=== PATIENT | male | born 1940 | race Caucasian/White ===

== ENCOUNTER 2018-07-30 03:42 | Emergency (ER) | payer MEDICARE, OTHER ==
[2018-07-30 05:00] LABS: BASO % 0.3 % (0.0-1.0); EOS % 0.7 % (0.0-3.0); HEMATOCRIT 31.1 % (42.0-52.0); HEMOGLOBIN 8.9 g/dl (13.5-17.5); IMMATURE GRANULOCYTE % 0.8 % (0-3.0); LYMPH # 0.5 10^3/uL (1.5-4.5); LYMPH % 8.2 % (24.0-44.0); MEAN CORPUSCULAR HEMOGLOBIN 22.9 pg (27.0-33.0); MEAN CORPUSCULAR HGB CONC 28.6 g/dl (32.0-36.5); MEAN CORPUSCULAR VOLUME 79.9 fl (80.0-96.0); MONO # 0.7 10^3/uL (0.0-0.8); NEUTROPHILS # 4.8 10^3/uL (1.8-7.7); PLATELET COUNT, AUTOMATED 192 10^3/uL (150-450); RED BLOOD COUNT 3.89 10^6/uL (4.30-6.10); RED CELL DISTRIBUTION WIDTH 17.2 % (11.5-14.5); WHITE BLOOD COUNT 6.1 10^3/uL (4.0-10.0)
[2018-07-30 05:04] LABS: INR 2.06; PARTIAL THROMBOPLASTIN TIME 39.7 SECONDS (25.4-37.6); PROTHROMBIN TIME 23.6 SECONDS (12.1-14.4)
[2018-07-30 05:05] LABS: ALBUMIN 3.2 GM/DL (3.2-5.2); ALKALINE PHOSPHATASE 67 U/L (45-117); ALT/SGPT 22 U/L (12-78); ANION GAP 6 MEQ/L (8-16); AST/SGOT 17 U/L (7-37); BILIRUBIN,DIRECT 0.3 MG/DL (0.0-0.2); BILIRUBIN,TOTAL 1.1 MG/DL (0.2-1.0); BLOOD UREA NITROGEN 20 MG/DL (7-18); CALCIUM LEVEL 8.1 MG/DL (8.8-10.2); CARBON DIOXIDE LEVEL 28 MEQ/L (21-32); CHLORIDE LEVEL 105 MEQ/L (98-107); CPK CREATINE PHOSPHOKINASE 63 U/L (39-308); CREATININE FOR GFR 0.79 MG/DL (0.70-1.30); GLOMERULAR FILTRATION RATE > 60.0 (>42); GLUCOSE, FASTING 164 MG/DL (70-100); LIPASE 124 U/L (73-393); POTASSIUM SERUM 4.5 MEQ/L (3.5-5.1); SODIUM LEVEL 139 MEQ/L (136-145); TOTAL PROTEIN 6.1 GM/DL (6.4-8.2); TROPONIN I < 0.02 NG/ML (< 0.10)
[2018-07-30] MEDS: MORPHINE 4 MG/ML 1ML VIAL/SYRINGE (J2270) IV (06:42)
[2018-07-30 07:08] LABS: AMORPHOUS SEDIMENT RFX SMALL (NEGATIVE); KETONE, URINE AUTO RFX NEGATIVE (NEGATIVE); LEUKOCYTE ESTERASE UR AUTO RFX NEGATIVE (NEGATIVE); MUCUS, URINE RFX MODERATE (NEGATIVE); NITRITE, URINE AUTO RFX NEGATIVE (NEGATIVE); RBC, URINE AUTO RFX 2 /HPF (0-3); SPECIFIC GRAVITY UR AUTO RFX 1.023 (1.002-1.035); SQUAM EPITHELIAL CELL UR AURFX 0 /HPF (0-6); WBC, URINE AUTO RFX 2 /HPF (0-3)
[2018-07-30] MEDS: GASTROGRAFIN SOLUTION 30ML PO ×2 (07:13→07:46)
[2018-07-30] MEDS ORDERED: ISOVUE-370 76% 100ML VIAL (Q9967) As Ordered (08:35)
== END 2018-07-30 12:27 | disposition home or self-care (01) ==
LOC: M ED 03:42
DX: R10.30 Lower abdominal pain, unspecified (principal); I48.91 Unspecified atrial fibrillation; Z79.899 Other long term (current) drug therapy; Z79.01 Long term (current) use of anticoagulants
CPT/HCPCS: J2270

== ENCOUNTER 2019-01-26 13:53 | Inpatient (IN) | payer MEDICARE, OTHER ==
[~2019-01-26] VITALS: Ht 177.8 cm; Wt 130.6 kg
[~2019-01-26 13:53] MED LIST: AMLO10TA5 PO; COUM1TAB14 PO; HYDR25TAB PO; LISI10TA4 PO; METF10004 PO; MONT10TA2 PO; OMEP20CA3 PO; OMEP40CA2 PO; PROAAER10 INH; SIMV40TA2 PO
[2019-01-26 14:58] LABS: BASO % 0.2 % (0.0-1.0); EOS % 0.6 % (0.0-3.0); HEMATOCRIT 24.4 % (42.0-52.0); LYMPH # 0.5 10^3/uL (1.5-4.5); LYMPH % 8.3 % (24.0-44.0); MEAN CORPUSCULAR HEMOGLOBIN 19.3 pg (27.0-33.0); MEAN CORPUSCULAR VOLUME 71.3 fl (80.0-96.0); MONO # 0.6 10^3/uL (0.0-0.8); MONO % 9.4 % (0.0-5.0); NEUTROPHILS # 5.1 10^3/uL (1.8-7.7); PLATELET COUNT, AUTOMATED 175 10^3/uL (150-450); RED BLOOD COUNT 3.42 10^6/uL (4.30-6.10); WHITE BLOOD COUNT 6.3 10^3/uL (4.0-10.0)
--- NOTE | 2019-01-26 15:04 | REP ---
Chest two views HISTORY: Cough Comparison: 07/30/2018 Linear densities are present in the left lower lobe consistent with scarring. The right lung is clear. The heart is normal in size. The pulmonary vasculature is normal in appearance. The bony structure is intact. IMPRESSION: Left lower lobe scarring. Electronically Signed by Tomi Armijo MD 01/26/2019 02:55 P
[2019-01-26 15:07] LABS: HEMOGLOBIN 6.6 g/dl (13.5-17.5); INR 2.14; PROTHROMBIN TIME 24.3 SECONDS (12.1-14.4)
--- NOTE | 2019-01-26 15:21 | REP ---
Bilateral lower extremity Duplex Doppler venous ultrasound: Real time compression and duplex Doppler interrogation of the bilateral lower extremity deep venous system is performed. Bilaterally, the common femoral, superficial femoral and popliteal veins are fully compressible with transducer pressure and demonstrate normal spontaneous and phasic flow, without evidence of deep venous thrombosis. Impression: No evidence of deep venous thrombosis of the bilateral lower extremity femoral popliteal venous system. Electronically Signed by Les Escobar MD 01/26/2019 03:13 P
[2019-01-26 15:25] LABS: ALBUMIN 3.1 GM/DL (3.2-5.2); ALT/SGPT 17 U/L (12-78); BILIRUBIN,DIRECT 0.3 MG/DL (0.0-0.2); BLOOD UREA NITROGEN 23 MG/DL (7-18); CALCIUM LEVEL 8.2 MG/DL (8.8-10.2); CARBON DIOXIDE LEVEL 28 MEQ/L (21-32); CHLORIDE LEVEL 103 MEQ/L (98-107); CPK CREATINE PHOSPHOKINASE 42 U/L (39-308); CREATININE FOR GFR 0.71 MG/DL (0.70-1.30); GLOMERULAR FILTRATION RATE > 60.0 (>42); GLUCOSE, FASTING 117 MG/DL (70-100); NT-PRO BNP 638 PG/ML (<450); POTASSIUM SERUM 4.3 MEQ/L (3.5-5.1); SODIUM LEVEL 136 MEQ/L (136-145); TROPONIN I 0.02 NG/ML (< 0.10)
[2019-01-26 16:53] LABS: FERRITIN 13 NG/ML (26-388); IRON (FE) 18 UG/DL (65-175); PERCENT SATURATION 4.5 % (19.7-50.0); TOTAL IRON BINDING CAPACITY 404 UG/DL (250-450)
[2019-01-26] MEDS ORDERED: TIOT18INH INH (16:53)
[2019-01-26] MEDS ORDERED: METF-723 PO (16:53)
[2019-01-26] MEDS ORDERED: GNP1000T11 PO (16:53)
[2019-01-26] MEDS ORDERED: LISI-538 PO (16:53)
[2019-01-26] MEDS ORDERED: MULTCAP PO (16:53)
[2019-01-26] MEDS ORDERED: ASMA220A2 INH (16:53)
[2019-01-26] MEDS ORDERED: ACET-907 PO (16:53)
[2019-01-26] MEDS ORDERED: WARF4TAB51 PO ×2 (16:53)
[2019-01-26] MEDS ORDERED: PRED10TA2 PO (16:53)
[2019-01-26] MEDS ORDERED: ZOCO80TA PO (16:53)
[2019-01-26] MEDS ORDERED: DULE200A INH (16:53)
--- NOTE | 2019-01-26 19:00 | HPE ---
DATE OF ADMISSION: 01/26/2019 PRIMARY CARE PROVIDER: [facility] ATTENDING PHYSICIAN: Dr. Baron CHIEF COMPLAINT: General weakness as well as shortness of breath. HISTORY OF PRESENT ILLNESS: The patient is a 78-year-old male with several chronic medical conditions who came to the emergency room (ER) for evaluation of above complaints. The history is provided by himself; however, the patient is a poor historian. Per the patient, he had trouble breathing for a couple days, so he went to see the primary care physician (PCP[facility] have swelling in his bilateral lower extremities, and it was concerning he may have congestive heart failure (CHF), so he was sent down here, ER, for further evaluation. In the ER his initial workup demonstrated he has very severe anemia. His hemoglobin and hematocrit down to 6.6/24.4. His last hemoglobin and hematocrit were here in the hospital back in 07/30/2018, which was 8.9/31. Also, per medical record in the computer, he was here recently for esophagogastroduodenoscopy (EGD) and colonoscopy done, which only found a few polyps, which were removed. Also, in the ER his stool was negative for guaiac. Packed red blood cell (RBC) transfusion was scheduled in the ER. Meanwhile, medicine service was called for admission. REVIEW OF SYSTEMS: Denies fever. No chills. No headache, blurry vision. Positive shortness of breath but no cough. No chest pain. No abdominal pain. No nausea. No vomiting. No black stool. No diarrhea. No tingling, numbness, or weakness but general weakness in the bilateral lower extremities, and also he was worsening swelling in his bilateral lower extremities. All other systems reviewed were negative. PAST MEDICAL HISTORY: 1. Hypertension. 2. Chronic atrial fibrillation, on Coumadin. 3. Type 2 diabetes. 4. Hypertension. 5. Acid reflux. 6. Morbid obesity. PAST SURGICAL HISTORY: Prostate cancer surgery. ALLERGIES: Allergic to TRAMADOL. MEDICATIONS: Reviewed. SOCIAL HISTORY: Remote tobacco use but quit for many years. No alcohol abuse. No illicit drug abuse. He is a full code. FAMILY HISTORY: Both parents . No family history of heart attack or diabetes. PHYSICAL EXAMINATION: VITAL SIGNS: Temperature 97.5, heart rate 98, respirations 21, blood pressure 126/66, oxygen saturation 96% on room air. GENERAL: He is awake, alert, oriented times three. He is not in acute distress. HEENT: Atraumatic. Pupils equal, round, reactive to light. No jaundice. Extraocular muscles intact. Conjunctivae pale. Ears, nose, throat normal. Mucosa moist. NECK: No jugular venous distention (JVD). No bruits. LUNGS: Clear. No wheezing. No crackles. HEART: S1, S2, irregular but no tachycardia. ABDOMEN: Soft. Bowel sounds positive. Nontender. Lower extremities: He has +2-3 edema in bilateral lower extremities. NEUROLOGIC: Nonfocal. SKIN: No rash. PSYCHOLOGIC: No acute psychosis. DIAGNOSTIC LABORATORIES: CBC with differential: WBC 6.3, hemoglobin and hematocrit 6.6/24.4, platelets 175. Sodium 136, potassium 4.3, chloride 103, bicarbonate 28, BUN 23, creatinine 0.7, glucose 117. Iron profile showed ferritin 13. INR is 2.14. IMPRESSION: 1. Symptomatic iron deficiency anemia. 2. Acute on chronic congestive heart failure (CHF). Ejection fraction (EF) is unknown. 3. Hypertension. 4. Chronic atrial fibrillation. 5. Type 2 diabetes. 6. Acid reflux. 7. Morbid obesity. PLAN: Patient will be admitted to medical/surgical with remote telemetry. He is going to get a blood transfusion due to severe symptomatic anemia. Will supplement with iron for iron deficiency. He had a recent colonoscopy as well as EGD done, which were negative, plus his stool was negative for the guaiac, so probably he does not need a gastrointestinal (GI) workup for iron deficiency anemia in this admission. Regarding his CHF exacerbation, which will be treated with intravenous (IV) Lasix. Meanwhile, will schedule echocardiogram to evaluation EF. Will continue his Coumadin. The other medical conditions are chronic and stable. Will continue home medications. [facility]
[2019-01-26] MEDS: FUROSEMIDE 40 MG/4 ML VIAL (J1940) IV SCH (19:05)
[2019-01-26] MEDS ORDERED: IRON SUCROSE 100MG 5ML VIAL (J1756 PER 1MG) IV ONE (20:00)
[2019-01-26 20:30] VITALS: BP 136/78
[2019-01-26] MEDS: OMEPRAZOLE 20 MG CAP PO SCH (20:47)
[2019-01-26] MEDS: SIMVASTATIN 40 MG TAB PO SCH (20:47)
[2019-01-26] MEDS: ACETAMINOPHEN TAB 650MG DOSE (2X325MG) PO PRN (20:48)
[2019-01-26] MEDS: WARFARIN SOD 5 MG TAB PO SCH (20:50)
[2019-01-26] MEDS ORDERED: DEXTROSE 50% 50 ML SYRINGE IV PRN (23:45)
[2019-01-26] MEDS ORDERED: GLUCAGON FOR INJ 1 MG VIAL (J1610) SC PRN (23:45)
[2019-01-26] MEDS ORDERED: GLUCOSE 4 GM CHEW TABLET PO PRN (23:45)
[2019-01-26] MEDS: HumaLOG INSULIN (NovoLOG) PER UNIT SC SCH (23:47)
[2019-01-27 06:00] VITALS: BP 123/70
[2019-01-27 06:03] LABS: HEMOGLOBIN 7.1 g/dl (13.5-17.5); MEAN CORPUSCULAR HEMOGLOBIN 19.6 pg (27.0-33.0); MEAN CORPUSCULAR HGB CONC 27.3 g/dl (32.0-36.5); MEAN CORPUSCULAR VOLUME 71.6 fl (80.0-96.0); PLATELET COUNT, AUTOMATED 180 10^3/uL (150-450); RED BLOOD COUNT 3.63 10^6/uL (4.30-6.10); WHITE BLOOD COUNT 6.2 10^3/uL (4.0-10.0)
[2019-01-27 06:09] LABS: INR 2.03; PROTHROMBIN TIME 23.3 SECONDS (12.1-14.4)
--- NOTE | 2019-01-27 06:10 | ECGEPIP ---
[facility] - ED Test Date: 2019-01-26 Pat Name: CARLY DUNLAP Department: Room: - Gender: M Tumbling Instructor: : 1940 Requested By: GREG Zamora Order Number: [id number] Reading MD: Sarbjit Montgomery Measurements Intervals [place] Rate: 82 P: ME: 0 QRS: -4 QRSD: 110 T: 33 QT: 367 QTc: 431 Interpretive Statements ATRIAL FIBRILLATION LOW QRS VOLTAGE IN PRECORDIAL LEADS SIMILAR TO 07/30/18 Electronically Signed on 01-27-2019 6:10:29 EDT by Sarbjit Montgomery
[2019-01-27 06:25] LABS: BLOOD UREA NITROGEN 18 MG/DL (7-18); CALCIUM LEVEL 8.4 MG/DL (8.8-10.2); CARBON DIOXIDE LEVEL 28 MEQ/L (21-32); CHLORIDE LEVEL 103 MEQ/L (98-107); CREATININE FOR GFR 0.82 MG/DL (0.70-1.30); GLOMERULAR FILTRATION RATE > 60.0 (>42); GLUCOSE, FASTING 127 MG/DL (70-100); POTASSIUM SERUM 4.1 MEQ/L (3.5-5.1); SODIUM LEVEL 137 MEQ/L (136-145)
[2019-01-27] MEDS: TIOTROPIUM INHALER/CAPSULE (SPIRIVA) INH SCH (08:08)
[2019-01-27] MEDS: FUROSEMIDE 40 MG/4 ML VIAL (J1940) IV SCH ×2 (08:20→17:28)
[2019-01-27] MEDS: HumaLOG INSULIN (NovoLOG) PER UNIT SC SCH ×4 (08:21→20:32)
[2019-01-27] MEDS: LISINOPRIL 10 MG TAB PO SCH (08:23)
[2019-01-27] MEDS: OMEPRAZOLE 20 MG CAP PO SCH ×2 (08:23→20:31)
[2019-01-27] MEDS: amLODIPine 10 MG TAB PO SCH (08:24)
[2019-01-27] MEDS: MONTELUKAST 10 MG TAB PO SCH (08:24)
--- NOTE | 2019-01-27 08:27 | IPNPDOC ---
Date Seen The patient was seen on 01/27/19. Progress Note Subjective 78 Y male, history of HTN, CHF, COPD, and afib on coumadin presents with general weakness found to have severe anemia received 1 unit of PRBC transfusion in ER feels better no events overnight Review of systems no fever no chills' no sob no chest pain no abdominal pain no black stool Physical examination GENERAL: AA Ox3, sitting in the bed and not in acute distress. HEENT: Atraumatic. Pupils equal, round, reactive to light. No jaundice. Extraocular muscles intact. Conjunctivae pale. Ears, nose, throat normal. Mucosa moist. NECK: No jugular venous distention (JVD). No bruits. LUNGS: decreased breath sound and mild wheezing HEART: S1, S2, irregular but no tachycardia. ABDOMEN: Soft. Bowel sounds positive. Nontender. Lower extremities: He has +2-3 edema in bilateral lower extremities. NEUROLOGIC: Nonfocal. SKIN: No rash. PSYCHOLOGIC: No acute psychosis. Assessment and Plan 1. Symptomatic iron deficiency anemia, stool negative for occult blood, recent negative EGD/Colonoscopy Hemoglobin up from 6.6 to 7.1 after 1 unit PRBC, will transfuse another one will supplement iron 2. acute on chronic CHF, fluid overload, will continue IV lasix, echo pending will monitor electrolites 3. Chronic afib, rate control, INR therapeutic, will continue Coumadin 4. HTN, BP stable 5. COPD, not in acute exacerbation, will add duonebs 6. DM T2, will check A1c, will continue insulin A-FIB/CHADSVASC A-FIB History Current/History of A-Fib/PAF?: Yes Current Oral Anticoagulant The: Yes VS, I&O, 24H, [place] Vital Signs/I&O Vital Signs Date Time Temp Pulse Resp B/P (MAP) Pulse Ox O2 Delivery O2 Flow Rate FiO2 01/27/19 06:00 97.2 103 18 123/70 (87) 94 01/26/19 19:16 Room Air I&O- Last 24 Hours up to 6 AM 01/27/19 06:00 Intake Total 350 ml Balance 350 ml Laboratory Data 24H LABS Laboratory Tests 2 01/26/19 14:38: Immature Granulocyte % (Auto) 0.5, White Blood Count 6.3, Red Blood Count 3.42L, Hemoglobin 6.6*L, Hematocrit 24.4L, Mean Corpuscular Volume 71.3L, Mean Corpuscular Hemoglobin 19.3L, Mean Corpuscular Hemoglobin Concent 27.0L, Red Cell Distribution Width 19.3H, Platelet Count 175, Neutrophils (%) (Auto) 81.0H, Lymphocytes (%) (Auto) 8.3L, Monocytes (%) (Auto) 9.4H, Eosinophils (%) (Auto) 0.6, Basophils (%) (Auto) 0.2, Neutrophils # (Auto) 5.1, Lymphocytes # (Auto) 0.5L, Monocytes # (Auto) 0.6, Eosinophils # (Auto) 0.0, Basophils # (Auto) 0.0, Reticulocyte # (auto) 65.7, Nucleated Red Blood Cells % (auto) 0.0, Percent Reticulocyte Count 1.8H, Reticulocyte Hemoglobin Equivalent 17.5L, Prothrombin Time 24.3H, Prothromb Time International Ratio 2.14, Anion Gap 5L, Glomerular F iltration Rate > 60.0, Calcium Level 8.2L, Iron Level 18L, Total Iron Binding Capacity 404, Transferrin % Saturation 4.5L, Ferritin 13L, Aspartate Amino Transf (AST/SGOT) 14, Alanine Aminotransferase (ALT/SGPT) 17, Alkaline Phosphatase 65, Total Bilirubin 1.0, Direct Bilirubin 0.3H, Total Creatine K inase 42, Creatine Kinase MB 1.0, Creatine Kinase MB Relative Index 3.10, Troponin I 0.02, SX-Wza-M-Type Natriuretic Peptide 638H, Total Protein 6.0L, Albumin 3.1L, Albumin/Globulin Ratio 1.07, Thyroid Stimulating Hormone (TSH) 4.920H 01/26/19 20:37: Bedside Glucose (Misc Panel) 177H 01/27/19 05:39: Nucleated Red Blood Cells % (auto) 0.0, Prothrombin Time 23.3H, Prothromb Time International Ratio 2.03, Anion Gap 6L, Glomerular Filtration Rate > 60.0, Calc ium Level 8.4L, Blood Urea Nitrogen 18, Creatinine 0.82, Sodium Level 137, Potassium Level 4.1, Chloride Level 103, Carbon Dioxide Level 28 CBC/BMP Laboratory Tests 01/26/19 14:38 Red Blood Count 3.42 L, Mean Corpuscular Volume 71.3 L, Mean Corpuscular Hemoglobin 19.3 L, Mean Corpuscular Hemoglobin Concent 27.0 L, Red Cell Distribution Width 19.3 H, Neutrophils (%) (Auto) 81.0 H, Lymphocytes (%) (Auto) 8.3 L, Monocytes (%) (Auto) 9.4 H, Eosinophils (%) (Auto) 0.6, Basophils (%) (Auto) 0.2, Neutrophils # (Auto) 5.1, Lymphocytes # (Auto) 0.5 L, Monocytes # (Auto) 0.6, Eosinophils # (Auto) 0.0, Basophils # (Auto) 0.0 01/27/19 05:39 Red Blood Count 3.63 L, Mean Corpuscular Volume 71.6 L, Mean Corpuscular Hemoglobin 19.6 L, Mean Corpuscular Hemoglobin Concent 27.3 L, Red Cell Distribution Width 19.6 H, Calcium Level 8.4 L TANVIR BERNARD MD January 27, 2019 08:27
[2019-01-27] MEDS: IPRATROPIUM 0.5MG/ALBUTEROL 2.5MG INH SOL UD 3ML (DUONEB)(J7620) NEB SCH ×4 (08:46→20:05)
[2019-01-27] MEDS ORDERED: IRON SUCROSE 100MG 5ML VIAL (J1756 PER 1MG) IV ONE (09:00)
[2019-01-27 09:14] LABS: HEMOGLOBIN A1c 7.5 %
[2019-01-27] MEDS: IRON POLYSAC (NIFEREX) 150 MG CAP PO SCH ×2 (10:34→20:32)
[2019-01-27 14:00] VITALS: BP 136/66
[2019-01-27 16:00] VITALS: BP 140/68
[2019-01-27] MEDS: WARFARIN SOD 5 MG TAB PO SCH (17:28)
[2019-01-27 18:00] VITALS: BP 119/65
[2019-01-27] MEDS: SIMVASTATIN 40 MG TAB PO SCH (20:31)
[2019-01-27] MEDS: ACETAMINOPHEN TAB 650MG DOSE (2X325MG) PO PRN (20:34)
[2019-01-27 22:00] VITALS: BP 125/67
[2019-01-28] MEDS: ACETAMINOPHEN TAB 650MG DOSE (2X325MG) PO PRN (01:56)
[2019-01-28 06:00] VITALS: BP 119/65
[2019-01-28 06:35] LABS: HEMOGLOBIN 7.6 g/dl (13.5-17.5); MEAN CORPUSCULAR HEMOGLOBIN 20.8 pg (27.0-33.0); MEAN CORPUSCULAR HGB CONC 28.1 g/dl (32.0-36.5); MEAN CORPUSCULAR VOLUME 73.8 fl (80.0-96.0); PLATELET COUNT, AUTOMATED 170 10^3/uL (150-450); RED BLOOD COUNT 3.66 10^6/uL (4.30-6.10); WHITE BLOOD COUNT 5.9 10^3/uL (4.0-10.0)
[2019-01-28 06:43] LABS: INR 2.18; PROTHROMBIN TIME 24.7 SECONDS (12.1-14.4)
[2019-01-28 06:55] LABS: BLOOD UREA NITROGEN 15 MG/DL (7-18); CALCIUM LEVEL 8.5 MG/DL (8.8-10.2); CARBON DIOXIDE LEVEL 30 MEQ/L (21-32); CHLORIDE LEVEL 101 MEQ/L (98-107); CREATININE FOR GFR 0.83 MG/DL (0.70-1.30); GLOMERULAR FILTRATION RATE > 60.0 (>42); GLUCOSE, FASTING 128 MG/DL (70-100); MAGNESIUM LEVEL 1.6 MG/DL (1.8-2.4); POTASSIUM SERUM 4.1 MEQ/L (3.5-5.1); SODIUM LEVEL 137 MEQ/L (136-145)
[2019-01-28] MEDS: IPRATROPIUM 0.5MG/ALBUTEROL 2.5MG INH SOL UD 3ML (DUONEB)(J7620) NEB SCH ×4 (07:52→19:36)
[2019-01-28] MEDS: TIOTROPIUM INHALER/CAPSULE (SPIRIVA) INH SCH (07:52)
[2019-01-28] MEDS: IRON POLYSAC (NIFEREX) 150 MG CAP PO SCH ×2 (08:19→22:18)
[2019-01-28] MEDS: OMEPRAZOLE 20 MG CAP PO SCH ×2 (08:21→22:19)
[2019-01-28] MEDS: amLODIPine 10 MG TAB PO SCH (08:21)
[2019-01-28] MEDS: LISINOPRIL 10 MG TAB PO SCH (08:22)
[2019-01-28] MEDS: FUROSEMIDE 40 MG/4 ML VIAL (J1940) IV SCH (08:38)
[2019-01-28] MEDS: MONTELUKAST 10 MG TAB PO SCH (08:38)
[2019-01-28] MEDS: HumaLOG INSULIN (NovoLOG) PER UNIT SC SCH ×4 (08:39→21:00)
--- NOTE | 2019-01-28 09:52 | ECHO ---
DATE OF PROCEDURE: 01/27/2019 DATE OF : 1940 AGE: 77 GENDER: Male HEIGHT: 70 inches WEIGHT: 211 pounds BODY SURFACE AREA: 2.14 m2 INPATIENT: [address] [place] [address], [facility] REFERRING PHYSICIAN: Dr. Quinton Baron INDICATION: Dyspnea, MEASUREMENTS: 2-D Measurements: RV: 5.5 cm LV: 5.0 cm Septum: 1.1 cm Posterior wall: 1.1 cm Aortic root: 4.3 cm LA: 4.6 cm LVEF: 75% Doppler Measurements: AV: 1.48 m/s LVOT: 1.2 m/s LVOT diameter: 2.3 cm MV: E: 106 Early mitral deceleration time: 204 ms PV: 0.8 m/s Pulmonary artery acceleration time: 106 ms RVSP: 63 mmHg IVC: 2.9 cm COMMENTS: Underlying atrial fibrillation with controlled ventricular response. Somewhat technically challenging in light of the patient's body habitus but diagnostically useful information was still obtained. M-mode and two-dimensional echocardiography was performed with pulsed, continuous wave, color flow and tissue Doppler studies. Normal left ventricular size, wall thickness and hyperkinetic wall motion. At least mildly dilated left atrium but unable to define LV diastolic function with atrial fibrillation. Prominently dilated right heart chambers with severe pulmonary hypertension. Prominently dilated inferior vena cava with absent respiratory collapse in keeping with elevated central venous pressure/right heart failure. Subtle aortic valvular sclerosis without functional abnormality. Mildly dilated aortic root but proximal ascending aorta was upper limits of normal in caliber. Normal appearing and functioning mitral valvular apparatus. Normal appearing tricuspid valve with severe tricuspid insufficiency. No apparent intracardiac mass or pericardial effusion. MTDD
[2019-01-28] MEDS: AMPICILLIN SOD/SULBACTAM SOD 3 GM in D5W MINI-BAG PLUS 100 ML IV SCH ×3 (11:12→22:19)
[2019-01-28 14:00] VITALS: BP 118/72
--- NOTE | 2019-01-28 14:04 | IPNPDOC ---
Date Seen The patient was seen on 01/28/19. Progress Note Subjective 78 Y male, history of HTN, CHF, COPD, and afib on coumadin presents with general weakness found to have severe anemia received 2 unit of PRBC transfusion feels better no events overnight Review of systems left 3rd toe pain no fever no chills' no sob no chest pain no abdominal pain no black stool Physical examination GENERAL: AA Ox3, not in acute distress. HEENT: Atraumatic. Pupils equal, round, reactive to light. No jaundice. Extraocular muscles intact. Conjunctivae pale. Ears, nose, throat normal. Mucosa moist. NECK: No jugular venous distention (JVD). No bruits. LUNGS: decreased breath sound and mild wheezing HEART: S1, S2, irregular but no tachycardia. ABDOMEN: Soft. Bowel sounds positive. Nontender. Lower extremities: He has +2-3 edema in bilateral lower extremities. there are some erythema in the back of left foot and abscess in left 3rd toe NEUROLOGIC: Nonfocal. SKIN: No rash. PSYCHOLOGIC: No acute psychosis. Assessment and Plan 1. Symptomatic iron deficiency anemia, stool negative for occult blood, recent negative EGD/Colonoscopy Hemoglobin up from 6.6 to 7.6 after 2 unit PRBC will continue iron supplement and monitor HH 2. Acute on chronic diastolic CHF, fluid overload, echo showed normal EF still fluid overload, will increase IV lasix to 40 mg Q8H 3. Hypomagnesium, will supplement 4. Chronic afib, rate control, INR therapeutic, will continue Coumadin 5. Left 3rd toe infection, I aspirated abscess at bedside and wound culture pending will start IV Unasyn 6. HTN, BP stable 7. COPD, not in acute exacerbation, will add duonebs 8. DM T2, will check A1c, will continue insulin A-FIB/CHADSVASC A-FIB History Current/History of A-Fib/PAF?: Yes Current PO Anticoag Therapy: Yes VS, I&O, 24H, Fishbone Vital Signs/I&O Vital Signs Date Time Temp Pulse Resp B/P (MAP) Pulse Ox O2 Delivery O2 Flow Rate FiO2 01/28/19 08:22 117/66 01/28/19 08:21 76 01/28/19 06:00 97.9 20 98 01/26/19 19:16 Room Air I&O- Last 24 Hours up to 6 AM 01/28/19 06:00 Intake Total 2430 ml Output Total 2930 ml Balance -500 ml Laboratory Data 24H LABS Laboratory Tests 2 01/27/19 16:44: Bedside Glucose (Misc Panel) 134H 01/27/19 20:27: Bedside Glucose (Misc Panel) 165H 01/28/19 05:48: Bedside Glucose (Misc Panel) 144H 01/28/19 06:06: Nucleated Red Blood Cells % (auto) 0.0, Prothrombin Time 24.7H, Prothromb Time International Ratio 2.18, Anion Gap 6L, Glomerular Filtration Rate > 60.0, Blood Urea Nitrogen 15, Creatinine 0.83, Sodium Level 137, Potassium Level 4.1, Chloride Level 101, Carbon Dioxide Level 30, Calcium Level 8.5L, Magnesium Level 1.6L 01/28/19 11:25: Bedside Glucose (Misc Panel) 127H CBC/BMP Laboratory Tests 01/28/19 06:06 Red Blood Count 3.66 L, Mean Corpuscular Volume 73.8 L, Mean Corpuscular Hemoglobin 20.8 L, Mean Corpuscular Hemoglobin Concent 28.1 L, Red Cell Distribution Width 20.5 H, Calcium Level 8.5 L Microbiology Microbiology 01/28/19 Gram Stain - Final, Resulted 01/28/19 Wound Culture, Resulted Pending TANVIR BERNARD MD January 28, 2019 14:04
[2019-01-28] MEDS: WARFARIN SOD 5 MG TAB PO SCH (17:29)
[2019-01-28] MEDS: FUROSEMIDE 100 MG/10 ML VIAL (J1940) IV SCH (17:29)
[2019-01-28 22:00] VITALS: BP 103/51
[2019-01-28] MEDS: SIMVASTATIN 40 MG TAB PO SCH (22:19)
[2019-01-29] MEDS: FUROSEMIDE 100 MG/10 ML VIAL (J1940) IV SCH ×3 (01:52→17:27)
[2019-01-29] MEDS: AMPICILLIN SOD/SULBACTAM SOD 3 GM in D5W MINI-BAG PLUS 100 ML IV SCH ×2 (04:40→09:39)
[2019-01-29 06:00] VITALS: BP 133/72
[2019-01-29 07:13] LABS: HEMATOCRIT 29.5 % (42.0-52.0); HEMOGLOBIN 8.3 g/dl (13.5-17.5); MEAN CORPUSCULAR HEMOGLOBIN 20.8 pg (27.0-33.0); MEAN CORPUSCULAR HGB CONC 28.1 g/dl (32.0-36.5); MEAN CORPUSCULAR VOLUME 73.9 fl (80.0-96.0); PLATELET COUNT, AUTOMATED 179 10^3/uL (150-450); RED BLOOD COUNT 3.99 10^6/uL (4.30-6.10); WHITE BLOOD COUNT 6.8 10^3/uL (4.0-10.0)
[2019-01-29] MEDS: HumaLOG INSULIN (NovoLOG) PER UNIT SC SCH ×4 (07:30→20:50)
[2019-01-29 07:45] LABS: BLOOD UREA NITROGEN 12 MG/DL (7-18); CARBON DIOXIDE LEVEL 34 MEQ/L (21-32); CHLORIDE LEVEL 98 MEQ/L (98-107); CREATININE FOR GFR 0.88 MG/DL (0.70-1.30); GLOMERULAR FILTRATION RATE > 60.0 (>42); GLUCOSE, FASTING 132 MG/DL (70-100); POTASSIUM SERUM 4.3 MEQ/L (3.5-5.1); SODIUM LEVEL 136 MEQ/L (136-145)
[2019-01-29] MEDS: TIOTROPIUM INHALER/CAPSULE (SPIRIVA) INH SCH (07:50)
[2019-01-29] MEDS: IPRATROPIUM 0.5MG/ALBUTEROL 2.5MG INH SOL UD 3ML (DUONEB)(J7620) NEB SCH ×4 (07:50→19:39)
[2019-01-29] MEDS: LISINOPRIL 10 MG TAB PO SCH (09:41)
[2019-01-29] MEDS: amLODIPine 10 MG TAB PO SCH (09:41)
[2019-01-29] MEDS: IRON POLYSAC (NIFEREX) 150 MG CAP PO SCH ×2 (09:41→20:50)
[2019-01-29] MEDS: OMEPRAZOLE 20 MG CAP PO SCH ×2 (09:41→20:50)
[2019-01-29] MEDS: MONTELUKAST 10 MG TAB PO SCH (09:42)
--- NOTE | 2019-01-29 11:49 | PHACANCOPD ---
PHARMACY VANCOMYCIN DOSING Pt Demographics Demographics Patient Age:78 , Weight:130.600 , Gender: male Adjusted Body Weight Date: 01/29/19, Adjusted Body Weight: Kg Events Past 24 Hours Events Past 24 Hours: YES: Pending Diagnostics Vancomycin Vancomycin indication: LEFT 3RD TOE INFECTION Vancomycin Target Ranges: 10-20 mcg/ml Vancomycin Load Y/N: Yes Load Dose Date Time Vancomycin Load Dose: 2g Date: 01/29/19 Time: 1200 Vancomycin Dose Date: 01/29/19. Current Vancomycin Dose: [1500mg IV Q12H] Intermittent Dosing?: No Labs Labs Item Value Date Time White Blood Count 6.8 10^3/uL 01/29/19 0637 White Blood Count 5.9 10^3/uL 01/28/19 0606 White Blood Count 6.2 10^3/uL 01/27/19 0539 Blood Urea Nitrogen 12 MG/DL 01/29/19 0637 Blood Urea Nitrogen 15 MG/DL 01/28/19 0606 Blood Urea Nitrogen 18 MG/DL 01/27/19 0539 Creatinine 0.88 MG/DL 01/29/19 0637 Creatinine 0.83 MG/DL 01/28/19 0606 Creatinine 0.82 MG/DL 01/27/19 0539 Micro Microbiology 01/28/19 Gram Stain - Final, Resulted 01/28/19 Wound Culture - Preliminary, Resulted Staphylococcus Aureus Creatinine Clearance Date:01/29/19. Est Creatinine Clearance: [~74ml/min]. Pending Labs Vancomycin trough level scheduled 01/31/19 @1100 - prior to the 5th dose Assessment and Plan Maintaining Current Dose?: Yes Reason for dose change: No Dose Change Pharmacist Note Pharmacist Note Date: 01/29/19. Pharmacist note: Day #1 empiric vancomycin therapy initiated with a 2g loading dose, followed by a maintenance regimen of 1500mg IV Q12H for the treatment of a left 3rd toe infection with preliminary wound cultures growing heavy staph aureus - aiming for a goal trough of 10-20mcg/ml. WBC is currently WNL and the patient is afebrile. No PMH of MRSA or vanco use at [facility]. A vancomycin trough level has been scheduled to be drawn 01/31/19 @1100 - prior to the 5th dose. It is noted that the patient is on scheduled lasix and lisinopril, so we will continue to monitor the pts renal function and make changes if needed. SULMA [facility]ING [facility] January 29, 2019 11:49
[2019-01-29] MEDS: VANCOMYCIN HCL 1,000 MG, VIAL MATE ADAPTER 1 EACH in D5W 250 ML IV SCH (12:50)
[2019-01-29] MEDS ORDERED: VANCOMYCIN HCL 1,000 MG, VIAL MATE ADAPTER 1 EACH in D5W 250 ML IV ONE (13:00)
[2019-01-29 14:00] VITALS: BP 120/71
--- NOTE | 2019-01-29 14:27 | IPNPDOC ---
Date Seen The patient was seen on 01/29/19. Progress Note Subjective 78 Y male, history of HTN, CHF, COPD, and afib on coumadin presents with general weakness found to have severe anemia received 2 unit of PRBC transfusion no events overnight Review of systems left 3rd toe pain no fever no chills' no sob no chest pain no abdominal pain no black stool Physical examination GENERAL: AA Ox3, not in acute distress. HEENT: Atraumatic. Pupils equal, round, reactive to light. No jaundice. Extraocular muscles intact. Conjunctivae pale. Ears, nose, throat normal. Mucosa moist. NECK: No jugular venous distention (JVD). No bruits. LUNGS: decreased breath sound and mild wheezing HEART: S1, S2, irregular but no tachycardia. ABDOMEN: Soft. Bowel sounds positive. Nontender. Lower extremities: He has +2-3 edema in bilateral lower extremities. there are some erythema in the back of left foot and abscess in left 3rd toe NEUROLOGIC: Nonfocal. SKIN: No rash. PSYCHOLOGIC: No acute psychosis. Assessment and Plan 1. Symptomatic iron deficiency anemia, stool negative for occult blood, recent negative EGD/Colonoscopy Hemoglobin up from 6.6 to 7.6 after 2 unit PRBC, HH stable 2. Acute on chronic diastolic CHF, fluid overload, echo showed normal EF still fluid overload, will continue IV lasix to 40 mg Q8H 3. Hypomagnesium, resolved 4. Chronic afib, rate control, INR therapeutic, will continue Coumadin 5. Left 3rd toe infection, s/p aspiration, wound culture + Staph aneus, will change to IV vancomycin 6. HTN, BP stable 7. COPD, not in acute exacerbation, will continue duonebs 8. DM T2, will A1c 7.8%, will continue insulin VS, I&O, 24H, [place] Vital Signs/I&O Vital Signs Date Time Temp Pulse Resp B/P (MAP) Pulse Ox O2 Delivery O2 Flow Rate FiO2 01/29/19 09:41 116/68 01/29/19 09:41 80 01/29/19 06:00 97.9 18 94 01/26/19 19:16 Room Air I&O- Last 24 Hours up to 6 AM 01/29/19 06:00 Intake Total 2195 ml Output Total 1200 ml Balance 995 ml Laboratory Data 24H LABS Laboratory Tests 2 01/28/19 16:54: Bedside Glucose (Misc Panel) 149H 01/28/19 21:28: Bedside Glucose (Misc Panel) 163H 01/29/19 06:37: Nucleated Red Blood Cells % (auto) 0.0, Anion Gap 4L, Glomerular Filtration Rate > 60.0, Blood Urea Nitrogen 12, Creatinine 0.88, Sodium Level 136, Potassium Level 4.3, Chloride Level 98, Carbon Dioxide Level 34H, Calcium Level 9.0 01/29/19 11:49: Bedside Glucose (Misc Panel) 138H CBC/BMP Laboratory Tests 01/29/19 06:37 Red Blood Count 3.99 L, Mean Corpuscular Volume 73.9 L, Mean Corpuscular Hemoglobin 20.8 L, Mean Corpuscular Hemoglobin Concent 28.1 L, Red Cell Distribution Width 21.4 H, Calcium Level 9.0 Microbiology Microbiology 01/29/19 Blood Culture, Received Pending 01/28/19 Gram Stain - Final, Resulted 01/28/19 Wound Culture - Preliminary, Resulted Staphylococcus Aureus TANVIR BERNARD MD January 29, 2019 14:27
[2019-01-29] MEDS: WARFARIN SOD 5 MG TAB PO SCH (17:27)
[2019-01-29] MEDS ORDERED: TUBERCULIN PPD 5 UNITS/0.1 ML ID ONE (20:00)
[2019-01-29] MEDS: SIMVASTATIN 40 MG TAB PO SCH (20:50)
[2019-01-29 22:00] VITALS: BP 125/72
[2019-01-30] MEDS: VANCOMYCIN HCL 500 MG in D5W MINI-BAG PLUS 100 ML IV SCH ×2 (00:06→14:55)
[2019-01-30] MEDS: FUROSEMIDE 100 MG/10 ML VIAL (J1940) IV SCH ×3 (00:06→17:00)
[2019-01-30] MEDS: VANCOMYCIN HCL 1,000 MG, VIAL MATE ADAPTER 1 EACH in D5W 250 ML IV SCH ×2 (01:40→12:00)
[2019-01-30] MEDS: HumaLOG INSULIN (NovoLOG) PER UNIT SC SCH ×4 (07:30→21:00)
[2019-01-30] MEDS: TIOTROPIUM INHALER/CAPSULE (SPIRIVA) INH SCH (07:33)
[2019-01-30] MEDS: IPRATROPIUM 0.5MG/ALBUTEROL 2.5MG INH SOL UD 3ML (DUONEB)(J7620) NEB SCH ×4 (07:34→19:39)
[2019-01-30] MEDS: IRON POLYSAC (NIFEREX) 150 MG CAP PO SCH ×2 (09:48→21:47)
[2019-01-30] MEDS: MONTELUKAST 10 MG TAB PO SCH (09:48)
[2019-01-30] MEDS: amLODIPine 10 MG TAB PO SCH (09:48)
[2019-01-30] MEDS: OMEPRAZOLE 20 MG CAP PO SCH ×2 (09:49→21:47)
[2019-01-30] MEDS: LISINOPRIL 10 MG TAB PO SCH (09:49)
--- NOTE | 2019-01-30 11:32 | IPNPDOC ---
Date Seen The patient was seen on 01/30/19. Progress Note Subjective 78 Y male, history of HTN, CHF, COPD, and afib on coumadin presents with general weakness found to have severe anemia received 2 unit of PRBC transfusion has toe infection, + MRSA no events overnight Review of systems no fever no chills' no sob no chest pain no abdominal pain no black stool Physical examination GENERAL: AA Ox3, not in acute distress. HEENT: Atraumatic. Pupils equal, round, reactive to light. No jaundice. Extraocular muscles intact. Conjunctivae pale. Ears, nose, throat normal. Mucosa moist. NECK: No jugular venous distention (JVD). No bruits. LUNGS: decreased breath sound and mild wheezing HEART: S1, S2, irregular but no tachycardia. ABDOMEN: Soft. Bowel sounds positive. Nontender. Lower extremities: He has +2 edema in bilateral lower extremities. left 3rd toe wound stable and no drainage NEUROLOGIC: Nonfocal. SKIN: No rash. PSYCHOLOGIC: No acute psychosis. Assessment and Plan 1. Symptomatic iron deficiency anemia, stool negative for occult blood, recent negative EGD/Colonoscopy S/P 2 unit PRBC, HH stable ; on oral Iron 2. Acute on chronic diastolic CHF, fluid overload, echo showed normal EF still fluid overload, will continue IV lasix to 40 mg Q8H 3. Hypomagnesium, resolved 4. Chronic afib, rate control, INR therapeutic, will continue Coumadin 5. Left 3rd toe infection, s/p aspiration, wound culture + MRSA, will continue IV vancomycin 6. HTN, BP stable 7. COPD, not in acute exacerbation, will continue duonebs 8. DM T2, will A1c 7.8%, will continue insulin 9. dispo: plans to discharge to [facility] on 02/02 VS, I&O, 24H, [facility] Vital Signs/I&O Vital Signs Date Time Temp Pulse Resp B/P (MAP) Pulse Ox O2 Delivery O2 Flow Rate FiO2 01/30/19 09:48 60 125/72 01/29/19 22:00 98.3 18 95 01/26/19 19:16 Room Air I&O- Last 24 Hours up to 6 AM0 01/30/19 05:59 Intake Total 3680 ml Output Total 1100 ml Balance 2580 ml Laboratory Data 24H LABS Laboratory Tests 2 01/29/19 11:49: Bedside Glucose (Misc Panel) 138H 01/29/19 16:53: Bedside Glucose (Misc Panel) 151H 01/29/19 20:01: Bedside Glucose (Misc Panel) 210H 01/30/19 05:17: Bedside Glucose (Misc Panel) 97 Microbiology Microbiology 01/29/19 Blood Culture, Received Pending 01/28/19 Gram Stain - Final, Complete 01/28/19 Wound Culture - Final, Complete Staph.aureus Methicillin Resis TANVIR BERNARD MD January 30, 2019 11:32
[2019-01-30 14:00] VITALS: BP 122/68
[2019-01-30] MEDS: WARFARIN SOD 5 MG TAB PO SCH (18:39)
[2019-01-30] MEDS: ACETAMINOPHEN TAB 650MG DOSE (2X325MG) PO PRN (21:47)
[2019-01-30] MEDS: SIMVASTATIN 40 MG TAB PO SCH (21:47)
[2019-01-30 22:00] VITALS: BP 131/67
[2019-01-31] MEDS: FUROSEMIDE 100 MG/10 ML VIAL (J1940) IV SCH ×3 (00:17→18:11)
[2019-01-31] MEDS: VANCOMYCIN HCL 1,000 MG, VIAL MATE ADAPTER 1 EACH in D5W 250 ML IV SCH ×2 (00:17→12:30)
[2019-01-31] MEDS: VANCOMYCIN HCL 500 MG in D5W MINI-BAG PLUS 100 ML IV SCH ×2 (02:08→15:05)
[2019-01-31] MEDS: ACETAMINOPHEN TAB 650MG DOSE (2X325MG) PO PRN ×3 (04:06→22:24)
[2019-01-31 06:00] VITALS: BP 107/55
[2019-01-31 06:24] LABS: HEMATOCRIT 28.6 % (42.0-52.0); HEMOGLOBIN 8.1 g/dl (13.5-17.5); MEAN CORPUSCULAR HGB CONC 28.3 g/dl (32.0-36.5); MEAN CORPUSCULAR VOLUME 74.3 fl (80.0-96.0); PLATELET COUNT, AUTOMATED 169 10^3/uL (150-450); RED BLOOD COUNT 3.85 10^6/uL (4.30-6.10); WHITE BLOOD COUNT 7.9 10^3/uL (4.0-10.0)
[2019-01-31 06:40] LABS: BLOOD UREA NITROGEN 15 MG/DL (7-18); CARBON DIOXIDE LEVEL 32 MEQ/L (21-32); CHLORIDE LEVEL 92 MEQ/L (98-107); GLOMERULAR FILTRATION RATE > 60.0 (>42); GLUCOSE, FASTING 129 MG/DL (70-100); MAGNESIUM LEVEL 1.7 MG/DL (1.8-2.4); POTASSIUM SERUM 4.1 MEQ/L (3.5-5.1); SODIUM LEVEL 132 MEQ/L (136-145)
[2019-01-31] MEDS: TIOTROPIUM INHALER/CAPSULE (SPIRIVA) INH SCH (07:38)
[2019-01-31] MEDS: IPRATROPIUM 0.5MG/ALBUTEROL 2.5MG INH SOL UD 3ML (DUONEB)(J7620) NEB SCH ×4 (07:38→20:00)
[2019-01-31] MEDS: MONTELUKAST 10 MG TAB PO SCH (09:07)
[2019-01-31] MEDS: OMEPRAZOLE 20 MG CAP PO SCH ×2 (09:07→22:24)
[2019-01-31] MEDS: IRON POLYSAC (NIFEREX) 150 MG CAP PO SCH ×2 (09:08→22:24)
[2019-01-31] MEDS: HumaLOG INSULIN (NovoLOG) PER UNIT SC SCH ×4 (09:08→21:00)
[2019-01-31] MEDS: amLODIPine 10 MG TAB PO SCH (09:09)
[2019-01-31] MEDS: LISINOPRIL 10 MG TAB PO SCH (09:10)
--- NOTE | 2019-01-31 11:45 | PHACANCOPD ---
PHARMACY VANCOMYCIN DOSING Pt Demographics Demographics Patient Age:78 , Weight:130.600 , Gender: male Adjusted Body Weight Date: 01/29/19, Adjusted Body Weight: Kg Vancomycin Vancomycin indication: LEFT 3RD TOE INFECTION Vancomycin Target Ranges: 10-20 mcg/ml Vancomycin Load Y/N: Yes Load Dose Date Time Vancomycin Load Dose: 2g Date: 01/29/19 Time: 1200 Vancomycin Dose Date: 01/29/19. Current Vancomycin Dose: [1500mg IV Q12H] Intermittent Dosing?: No Labs Micro Microbiology 01/29/19 Blood Culture - Preliminary, Resulted No growth after 24 hours . All specim... 01/28/19 Gram Stain - Final, Complete 01/28/19 Wound Culture - Final, Complete Staph.aureus Methicillin Resis Creatinine Clearance Date:01/29/19. Est Creatinine Clearance: [~74ml/min]. Pending Labs Vancomycin trough level scheduled 01/31/19 @1100 - prior to the 5th dose Assessment and Plan Maintaining Current Dose?: Yes Reason for dose change: No Dose Change Pharmacist Note Pharmacist Note 01/31/19: Day #3 IV vancomycin therapy for the treatment of an MRSA left 3rd toe infection (BLUE=1). Vancomycin trough level today resulted therapeutic at 18.2mcg/ml. Scr remains stable at 1.0 today from 0.88 at start of therapy. BUN is also stable at 15 today from 12 at start of therapy. Output has increased from 0.1ml/kg/hr at start of therapy to 1.03ml/kg/hr as of yesterday. We will continue to monitor the patient's renal function and draw a follow-up trough level accordingly. Date: 01/29/19. Pharmacist note: Day #1 empiric vancomycin therapy initiated with a 2g loading dose, followed by a maintenance regimen of 1500mg IV Q12H for the treatment of a left 3rd toe infection with preliminary wound cultures growing heavy staph aureus - aiming for a goal trough of 10-20mcg/ml. WBC is currently WNL and the patient is afebrile. No PMH of MRSA or vanco use at [facility]. A vancomycin trough level has been scheduled to be drawn 01/31/19 @1100 - prior to the 5th dose. It is noted that the patient is on scheduled lasix and lisinopril, so we will continue to monitor the pts renal function and make changes if needed. SULMA [facility] January 31, 2019 11:45
--- NOTE | 2019-01-31 11:53 | IPNPDOC ---
Date Seen The patient was seen on 01/31/19. Progress Note Subjective 78 Y male, history of HTN, CHF, COPD, and afib on coumadin presents with general weakness found to have severe anemia received 2 unit of PRBC transfusion has toe infection, + MRSA feels better and still c/o some pain in left foot Review of systems no fever no chills' no sob no chest pain no abdominal pain no black stool Physical examination GENERAL: AA Ox3, obese, not in acute distress. HEENT: Atraumatic. Pupils equal, round, reactive to light. No jaundice. Extraocular muscles intact. Conjunctivae pale. Ears, nose, throat normal. Mucosa moist. NECK: No jugular venous distention (JVD). No bruits. LUNGS: decreased breath sound and mild wheezing HEART: S1, S2, irregular but no tachycardia. ABDOMEN: Soft. Bowel sounds positive. Nontender. Lower extremities: He has +2 edema in bilateral lower extremities. left 3rd toe wound stable and no drainage NEUROLOGIC: Nonfocal. SKIN: No rash. PSYCHOLOGIC: No acute psychosis. Assessment and Plan 1. Symptomatic iron deficiency anemia, stool negative for occult blood, recent negative EGD/Colonoscopy S/P 2 unit PRBC, HH stable ; on oral Iron 2. Acute on chronic diastolic CHF, fluid overload, echo showed normal EF still fluid overload, will continue IV lasix to 40 mg Q8H 3. Hypomagnesium, resolved 4. Chronic afib, rate control, INR therapeutic, will continue Coumadin 5. Left 3rd toe infection, s/p aspiration, wound culture + MRSA but no positive blood cultures will continue IV vancomycin; may switch to oral clindamycin on discharge 6. HTN, BP stable 7. COPD, not in acute exacerbation, will continue duonebs 8. DM T2, will A1c 7.8%, will continue insulin 9. dispo: plans to discharge to [facility] on 02/02 VS, I&O, 24H, [place] Vital Signs/I&O Vital Signs Date Time Temp Pulse Resp B/P (MAP) Pulse Ox O2 Delivery O2 Flow Rate FiO2 01/31/19 09:09 95 131/80 01/31/19 06:00 99.1 8 93 01/26/19 19:16 Room Air I&O- Last 24 Hours up to 6 AM 01/31/19 06:00 Intake Total 3300 ml Output Total 2825 ml Balance 475 ml Laboratory Data 24H LABS Laboratory Tests 2 01/30/19 12:21: Bedside Glucose (Misc Panel) 202H 01/30/19 16:47: Bedside Glucose (Misc Panel) 196H 01/30/19 19:59: Bedside Glucose (Misc Panel) 198H 01/31/19 05:32: Bedside Glucose (Misc Panel) 147H 01/31/19 05:37: Nucleated Red Blood Cells % (auto) 0.0, Anion Gap 8, Glomerular Filtration Rate > 60.0, Blood Urea Nitrogen 15, Creatinine 1.00, Sodium Level 132L, Potassium Level 4.1, Chloride Level 92L, Carbon Dioxide Level 32, Calcium Level 8.0L, Magnesium Level 1.7L 01/31/19 10:45: Vancomycin Level Trough 18.2 01/31/19 11:27: Bedside Glucose (Misc Panel) 175H CBC/BMP Laboratory Tests 01/31/19 05:37 Red Blood Count 3.85 L, Mean Corpuscular Volume 74.3 L, Mean Corpuscular Hemoglobin 21.0 L, Mean Corpuscular Hemoglobin Concent 28.3 L, Red Cell Distribution Width 22.6 H, Calcium Level 8.0 L Microbiology Microbiology 01/29/19 Blood Culture - Preliminary, Resulted No growth after 24 hours . All specim... 01/28/19 Gram Stain - Final, Complete 01/28/19 Wound Culture - Final, Complete Staph.aureus Methicillin Resis TANVIR BERNARD MD January 31, 2019 11:53
[2019-01-31 14:00] VITALS: BP 109/59
[2019-01-31] MEDS: WARFARIN SOD 5 MG TAB PO SCH (18:11)
[2019-01-31] MEDS ORDERED: PPD DOCUMENTATION ENTRY MISC XX SCH (20:00)
[2019-01-31 22:00] VITALS: BP 115/59
[2019-01-31] MEDS: SIMVASTATIN 40 MG TAB PO SCH (22:23)
[2019-02-01] MEDS: VANCOMYCIN HCL 1,000 MG, VIAL MATE ADAPTER 1 EACH in D5W 250 ML IV SCH (00:10)
[2019-02-01] MEDS: FUROSEMIDE 100 MG/10 ML VIAL (J1940) IV SCH ×2 (00:10→07:51)
[2019-02-01] MEDS: VANCOMYCIN HCL 500 MG in D5W MINI-BAG PLUS 100 ML IV SCH (02:12)
[2019-02-01 06:00] VITALS: BP 123/69
[2019-02-01 06:52] LABS: INR 1.92; PROTHROMBIN TIME 22.3 SECONDS (12.1-14.4)
[2019-02-01] MEDS: IPRATROPIUM 0.5MG/ALBUTEROL 2.5MG INH SOL UD 3ML (DUONEB)(J7620) NEB SCH ×4 (07:39→20:25)
[2019-02-01] MEDS: TIOTROPIUM INHALER/CAPSULE (SPIRIVA) INH SCH (07:39)
[2019-02-01] MEDS: IRON POLYSAC (NIFEREX) 150 MG CAP PO SCH ×2 (07:54→20:54)
[2019-02-01] MEDS: OMEPRAZOLE 20 MG CAP PO SCH ×2 (07:54→20:54)
[2019-02-01] MEDS: MONTELUKAST 10 MG TAB PO SCH (07:54)
[2019-02-01] MEDS: LISINOPRIL 10 MG TAB PO SCH (07:54)
[2019-02-01] MEDS: amLODIPine 10 MG TAB PO SCH (07:55)
[2019-02-01] MEDS: HumaLOG INSULIN (NovoLOG) PER UNIT SC SCH ×4 (07:55→20:34)
--- NOTE | 2019-02-01 11:11 | IPNPDOC ---
Date Seen The patient was seen on 02/01/19. Progress Note Subjective 78 Y male, history of HTN, CHF, COPD, and afib on coumadin presents with general weakness found to have severe anemia received 2 unit of PRBC transfusion has toe infection, + MRSA no events overnight Review of systems no fever no chills no sob no chest pain no abdominal pain no black stool Physical examination GENERAL: AA Ox3, obese, not in acute distress. HEENT: Atraumatic. Pupils equal, round, reactive to light. No jaundice. Extraocular muscles intact. Conjunctivae pale. Ears, nose, throat normal. Mucosa moist. NECK: No jugular venous distention (JVD). No bruits. LUNGS: decreased breath sound and mild wheezing HEART: S1, S2, irregular but no tachycardia. ABDOMEN: Soft. Bowel sounds positive. Nontender. Lower extremities: He has +2 edema in bilateral lower extremities. left 3rd toe wound stable and no drainage NEUROLOGIC: Nonfocal. SKIN: No rash. PSYCHOLOGIC: No acute psychosis. Assessment and Plan 1. Symptomatic iron deficiency anemia, stool negative for occult blood, recent negative EGD/Colonoscopy S/P 2 unit PRBC, HH stable ; on oral Iron 2. Acute on chronic diastolic CHF, fluid overload, echo showed normal EF will change to oral Torsemide @ 40 mg BID 3. Hypomagnesium, resolved 4. Chronic afib, rate control, INR therapeutic, will continue Coumadin 5. Left 3rd toe infection, s/p aspiration, wound culture + MRSA but no positive blood cultures will change from IV vancomycin to oral doxycycline 6. HTN, BP stable 7. COPD, not in acute exacerbation, will continue duonebs 8. DM T2, will A1c 7.8%, will continue insulin 9. dispo: plans to discharge to [facility] on 02/02 VS, I&O, 24H, Counts Include [facility] B[facility] At [facility] Vital Signs/I&O Vital Signs Date Time Temp Pulse Resp B/P (MAP) Pulse Ox O2 Delivery O2 Flow Rate FiO2 02/01/19 07:55 93 117/57 02/01/19 06:00 99.2 20 94 01/26/19 19:16 Room Air I&O- Last 24 Hours up to 6 AM 02/01/19 06:00 Intake Total 3350 ml Output Total 2575 ml Balance 775 ml Laboratory Data 24H LABS Laboratory Tests 2 01/31/19 11:27: Bedside Glucose (Misc Panel) 175H 01/31/19 16:23: Bedside Glucose (Misc Panel) 190H 01/31/19 20:09: Bedside Glucose (Misc Panel) 176H 02/01/19 05:46: Bedside Glucose (Misc Panel) 161H 02/01/19 05:55: Prothrombin Time 22.3H, Prothromb Time International Ratio 1.92 Microbiology Microbiology 01/29/19 Blood Culture - Preliminary, Resulted No Growth after 48 hours. All Specime... 01/28/19 Gram Stain - Final, Complete 01/28/19 Wound Culture - Final, Complete Staph.aureus Methicillin Resis TANVIR BERNARD MD February 01, 2019 11:11
[2019-02-01] MEDS: POTASSIUM CHLORIDE 10 MEQ SR TABLET PO SCH (12:05)
[2019-02-01] MEDS: DOXYCYCLINE HYCLATE 100 MG TAB PO SCH ×2 (12:05→20:54)
[2019-02-01 14:00] VITALS: BP 107/64
[2019-02-01] MEDS: TORSEMIDE 20 MG TAB PO SCH (17:39)
[2019-02-01] MEDS: WARFARIN SOD 5 MG TAB PO SCH (17:39)
[2019-02-01] MEDS: SIMVASTATIN 40 MG TAB PO SCH (20:54)
[2019-02-01 22:00] VITALS: BP 133/70
[2019-02-02 06:00] VITALS: BP 142/58
[2019-02-02 06:26] LABS: INR 1.77; PROTHROMBIN TIME 20.9 SECONDS (12.1-14.4)
[2019-02-02 06:48] LABS: BLOOD UREA NITROGEN 20 MG/DL (7-18); CALCIUM LEVEL 8.2 MG/DL (8.8-10.2); CARBON DIOXIDE LEVEL 36 MEQ/L (21-32); CHLORIDE LEVEL 93 MEQ/L (98-107); CREATININE FOR GFR 0.96 MG/DL (0.70-1.30); GLOMERULAR FILTRATION RATE > 60.0 (>42); GLUCOSE, FASTING 161 MG/DL (70-100); POTASSIUM SERUM 4.2 MEQ/L (3.5-5.1); SODIUM LEVEL 134 MEQ/L (136-145)
[2019-02-02] MEDS: TIOTROPIUM INHALER/CAPSULE (SPIRIVA) INH SCH (07:36)
[2019-02-02] MEDS: IPRATROPIUM 0.5MG/ALBUTEROL 2.5MG INH SOL UD 3ML (DUONEB)(J7620) NEB SCH ×4 (07:36→19:39)
[2019-02-02 08:53] LABS: MAGNESIUM LEVEL 1.6 MG/DL (1.8-2.4)
[2019-02-02 08:59] VITALS: BP 133/69
[2019-02-02 09:06] LABS: HEMATOCRIT 27.1 % (42.0-52.0); HEMOGLOBIN 7.6 g/dl (13.5-17.5); MEAN CORPUSCULAR HEMOGLOBIN 21.7 pg (27.0-33.0); MEAN CORPUSCULAR VOLUME 77.2 fl (80.0-96.0); PLATELET COUNT, AUTOMATED 157 10^3/uL (150-450); RED BLOOD COUNT 3.51 10^6/uL (4.30-6.10); WHITE BLOOD COUNT 6.8 10^3/uL (4.0-10.0)
[2019-02-02] MEDS: HumaLOG INSULIN (NovoLOG) PER UNIT SC SCH ×4 (09:11→21:00)
[2019-02-02] MEDS: ACETAMINOPHEN TAB 650MG DOSE (2X325MG) PO PRN ×2 (09:12→16:38)
[2019-02-02] MEDS: POTASSIUM CHLORIDE 10 MEQ SR TABLET PO SCH (09:13)
[2019-02-02] MEDS: IRON POLYSAC (NIFEREX) 150 MG CAP PO SCH ×2 (09:13→21:32)
[2019-02-02] MEDS: MONTELUKAST 10 MG TAB PO SCH (09:13)
[2019-02-02] MEDS: OMEPRAZOLE 20 MG CAP PO SCH ×2 (09:13→21:32)
[2019-02-02] MEDS: DOXYCYCLINE HYCLATE 100 MG TAB PO SCH ×2 (09:13→21:32)
[2019-02-02] MEDS: LISINOPRIL 10 MG TAB PO SCH (09:14)
[2019-02-02] MEDS: amLODIPine 10 MG TAB PO SCH (09:14)
[2019-02-02] MEDS: TORSEMIDE 20 MG TAB PO SCH ×2 (09:14→17:53)
--- NOTE | 2019-02-02 11:38 | IPNPDOC ---
Text Note Date of Service The patient was seen on 02/02/19. NOTE Subjective Patient seen and examined at bedside. No acute overnight events reported, no new medical complaints. Objective: GENERAL: NAD, sitting comfortably at edge of bed HEENT: NC/AT, EOMI, PERRL NECK: No jugular venous distention (JVD). No bruits. LUNGS: decreased breath sound and mild wheezing HEART: +S1S2, irregular ABDOMEN: Soft, +BS, NT, obese Lower extremities: He has +2 edema in bilateral lower extremities. left 3rd toe wound stable and no drainage Assessment and Plan # Symptomatic iron deficiency anemia, stool negative for occult blood, recent negative EGD/Colonoscopy S/P 2 unit PRBC, HH stable ; on oral Iron - Hg trending down - continue serial H/H #Acute on chronic diastolic CHF, fluid overload, echo showed normal EF - continue oral Torsemide @ 40 mg BID # Hypomagnesium - continue to replete as needed #Chronic afib - rate controlled - continue coumadin - slightly sub-therapeutic today # Left 3rd toe infection, s/p aspiration, wound culture + MRSA but no positive blood cultures - receiving oral doxycycline #HTN, BP stable #COPD, not in acute exacerbation, will continue duonebs # DM T2, will A1c 7.8%, will continue insulin #dispo: plans to discharge to [facility] on 02/02 pending anemia VS,Fishbone, I+O VS, Fishbone, I+O Laboratory Tests 02/02/19 05:55 Red Blood Count 3.51 L, Mean Corpuscular Volume 77.2 L, Mean Corpuscular Hemoglobin 21.7 L, Mean Corpuscular Hemoglobin Concent 28.0 L, Red Cell Distribution Width 23.5 H, Calcium Level 8.2 L Vital Signs Date Time Temp Pulse Resp B/P (MAP) Pulse Ox O2 Delivery O2 Flow Rate FiO2 02/02/19 09:14 133/69 02/02/19 09:14 104 02/02/19 08:59 98.9 20 94 I&O- Last 24 Hours up to 6 AM 02/02/19 06:00 Intake Total 2180 ml Output Total 2600 ml Balance -420 ml MARY ELLEN PETER MD February 02, 2019 11:37
[2019-02-02] MEDS ORDERED: MAG SULF 1GM/100ML (MAG RUN) 1 GM in APPROPRIATE DILUENT 1 EA IV ONE (12:00)
[2019-02-02 15:30] VITALS: BP 139/63
[2019-02-02] MEDS: WARFARIN SOD 5 MG TAB PO SCH (17:53)
[2019-02-02 19:58] LABS: HEMATOCRIT 25.2 % (42.0-52.0); HEMOGLOBIN 7.1 g/dl (13.5-17.5)
[2019-02-02] MEDS: SIMVASTATIN 40 MG TAB PO SCH (21:32)
[2019-02-02 22:00] VITALS: BP 136/70
[2019-02-03 06:00] VITALS: BP 132/63
[2019-02-03 06:37] LABS: HEMOGLOBIN 7.3 g/dl (13.5-17.5); MEAN CORPUSCULAR HEMOGLOBIN 20.9 pg (27.0-33.0); MEAN CORPUSCULAR HGB CONC 28.1 g/dl (32.0-36.5); MEAN CORPUSCULAR VOLUME 74.3 fl (80.0-96.0); PLATELET COUNT, AUTOMATED 172 10^3/uL (150-450); WHITE BLOOD COUNT 6.1 10^3/uL (4.0-10.0)
[2019-02-03 07:01] LABS: BLOOD UREA NITROGEN 21 MG/DL (7-18); CALCIUM LEVEL 8.8 MG/DL (8.8-10.2); CARBON DIOXIDE LEVEL 31 MEQ/L (21-32); CHLORIDE LEVEL 93 MEQ/L (98-107); CREATININE FOR GFR 1.07 MG/DL (0.70-1.30); GLOMERULAR FILTRATION RATE > 60.0 (>42); GLUCOSE, FASTING 152 MG/DL (70-100); MAGNESIUM LEVEL 1.9 MG/DL (1.8-2.4); SODIUM LEVEL 132 MEQ/L (136-145)
[2019-02-03] MEDS: IPRATROPIUM 0.5MG/ALBUTEROL 2.5MG INH SOL UD 3ML (DUONEB)(J7620) NEB SCH ×4 (07:50→19:11)
[2019-02-03] MEDS: TIOTROPIUM INHALER/CAPSULE (SPIRIVA) INH SCH (07:50)
[2019-02-03 08:13] LABS: INR 1.7; PROTHROMBIN TIME 20.3 SECONDS (12.1-14.4)
[2019-02-03 08:32] VITALS: BP 130/79
[2019-02-03] MEDS: IRON POLYSAC (NIFEREX) 150 MG CAP PO SCH ×2 (08:42→20:38)
[2019-02-03] MEDS: DOXYCYCLINE HYCLATE 100 MG TAB PO SCH ×2 (08:42→20:38)
[2019-02-03] MEDS: TORSEMIDE 20 MG TAB PO SCH ×2 (08:43→18:47)
[2019-02-03] MEDS: ACETAMINOPHEN TAB 650MG DOSE (2X325MG) PO PRN ×2 (08:43→20:49)
[2019-02-03] MEDS: amLODIPine 10 MG TAB PO SCH (08:44)
[2019-02-03] MEDS: LISINOPRIL 10 MG TAB PO SCH (08:44)
[2019-02-03] MEDS: OMEPRAZOLE 20 MG CAP PO SCH ×2 (08:44→20:38)
[2019-02-03] MEDS: POTASSIUM CHLORIDE 10 MEQ SR TABLET PO SCH (08:44)
[2019-02-03] MEDS: HumaLOG INSULIN (NovoLOG) PER UNIT SC SCH ×4 (08:45→20:49)
[2019-02-03] MEDS: MONTELUKAST 10 MG TAB PO SCH (08:45)
[2019-02-03 11:18] VITALS: BP 117/59
[2019-02-03 14:00] VITALS: BP 126/56
--- NOTE | 2019-02-03 17:17 | IPNPDOC ---
Text Note Date of Service The patient was seen on 02/03/19. NOTE Subjective Patient seen and examined at bedside. No acute overnight events reported, no new medical complaints. Objective: GENERAL: NAD, sitting comfortably at edge of bed HEENT: NC/AT, EOMI, PERRL NECK: No jugular venous distention (JVD). No bruits. LUNGS: decreased breath sound and mild wheezing HEART: +S1S2, irregular ABDOMEN: Soft, +BS, NT, obese Lower extremities: +2 edema b/l LE; left 3rd toe wound - no active drainage Assessment and Plan # Symptomatic iron deficiency anemia, stool negative for occult blood, recent negative EGD/Colonoscopy - s/p 2 unit PRBC - H/H trending down - on oral Iron - continue serial H/H #Acute on chronic diastolic CHF, fluid overload, echo showed normal EF - continue oral Torsemide @ 40 mg BID # Hypomagnesium - continue to replete as needed #Chronic afib - rate controlled - continue coumadin - sub-therapeutic today # Left 3rd toe infection, s/p aspiration, wound culture + MRSA but no positive blood cultures - receiving oral doxycycline #HTN, BP stable #COPD, not in acute exacerbation, will continue duonebs # DM T2, will A1c 7.8%, will continue insulin #dispo: plans to discharge to [facility] pending stable anemia VS,Fátima, I+O VS, Fátmia, I+O Laboratory Tests 02/02/19 18:46 02/03/19 05:53 Red Blood Count 3.50 L, Mean Corpuscular Volume 74.3 L, Mean Corpuscular H emoglobin 20.9 L, Mean Corpuscular Hemoglobin Concent 28.1 L, Red Cell Distribution Width 23.6 H, Calcium Level 8.8 Vital Signs Date Time Temp Pulse Resp B/P (MAP) Pulse Ox O2 Delivery O2 Flow Rate FiO2 02/03/19 14:00 97.6 90 20 126/56 (79) 94 I&O- Last 24 Hours up to 6 AM 02/03/19 06:00 Intake Total 2630 ml Output Total 1500 ml Balance 1130 ml MARY ELLEN PETER MD February 03, 2019 17:17
[2019-02-03] MEDS: WARFARIN SOD 5 MG TAB PO SCH (18:47)
[2019-02-03] MEDS: SIMVASTATIN 40 MG TAB PO SCH (20:38)
[2019-02-03 22:00] VITALS: BP 117/60
[2019-02-04 06:00] VITALS: BP 124/67
[2019-02-04 07:50] LABS: HEMATOCRIT 26.1 % (42.0-52.0); HEMOGLOBIN 7.4 g/dl (13.5-17.5); MEAN CORPUSCULAR HEMOGLOBIN 21.3 pg (27.0-33.0); MEAN CORPUSCULAR HGB CONC 28.4 g/dl (32.0-36.5); PLATELET COUNT, AUTOMATED 171 10^3/uL (150-450); RED BLOOD COUNT 3.48 10^6/uL (4.30-6.10); WHITE BLOOD COUNT 5.3 10^3/uL (4.0-10.0)
[2019-02-04 08:18] LABS: BLOOD UREA NITROGEN 23 MG/DL (7-18); CARBON DIOXIDE LEVEL 32 MEQ/L (21-32); CHLORIDE LEVEL 95 MEQ/L (98-107); CREATININE FOR GFR 1.19 MG/DL (0.70-1.30); GLOMERULAR FILTRATION RATE > 60.0 (>42); GLUCOSE, FASTING 202 MG/DL (70-100); POTASSIUM SERUM 4.5 MEQ/L (3.5-5.1); SODIUM LEVEL 134 MEQ/L (136-145)
[2019-02-04] MEDS: HumaLOG INSULIN (NovoLOG) PER UNIT SC SCH ×4 (09:31→21:00)
[2019-02-04] MEDS: MONTELUKAST 10 MG TAB PO SCH (09:32)
[2019-02-04] MEDS: POTASSIUM CHLORIDE 10 MEQ SR TABLET PO SCH (09:32)
[2019-02-04] MEDS: IRON POLYSAC (NIFEREX) 150 MG CAP PO SCH ×2 (09:32→22:02)
[2019-02-04] MEDS: OMEPRAZOLE 20 MG CAP PO SCH ×2 (09:32→22:02)
[2019-02-04] MEDS: DOXYCYCLINE HYCLATE 100 MG TAB PO SCH ×2 (09:33→22:02)
[2019-02-04] MEDS: amLODIPine 10 MG TAB PO SCH (09:36)
[2019-02-04] MEDS: LISINOPRIL 10 MG TAB PO SCH (09:37)
[2019-02-04] MEDS: TORSEMIDE 20 MG TAB PO SCH ×2 (09:37→18:12)
[2019-02-04] MEDS: IPRATROPIUM 0.5MG/ALBUTEROL 2.5MG INH SOL UD 3ML (DUONEB)(J7620) NEB SCH ×4 (10:30→20:23)
--- NOTE | 2019-02-04 10:35 | IPNPDOC ---
Text Note Date of Service The patient was seen on 02/04/19. NOTE Subjective Patient seen and examined at bedside. No acute overnight events reported. He does note some shortness of breath and lethargy today. Objective: GENERAL: NAD, sitting comfortably at edge of bed HEENT: NC/AT, EOMI, PERRL NECK: No jugular venous distention (JVD). No bruits. LUNGS: decreased breath sound and mild wheezing HEART: +S1S2, irregular ABDOMEN: Soft, +BS, NT, obese Lower extremities: +2 edema b/l LE; left 3rd toe wound - no active drainage Assessment and Plan # Symptomatic iron deficiency anemia, stool negative for occult blood, recent negative EGD/Colonoscopy - s/p 2 unit PRBC - started oral Iron and Vit C - transfuse 1 unit PRBC today - continue serial H/H #Acute on chronic diastolic CHF, fluid overload, echo showed normal EF - continue oral Torsemide @ 40 mg BID # Hypomagnesium - continue to replete as needed #Chronic afib - rate controlled - continue coumadin - sub-therapeutic today # Left 3rd toe infection, s/p aspiration, wound culture + MRSA but no positive blood cultures - receiving oral doxycycline #HTN, BP stable #COPD, not in acute exacerbation, will continue duonebs # DM T2, will A1c 7.8%, will continue insulin #dispo: plans to discharge to [facility] pending stable anemia VS,Fishbone, I+O VS, Fishbone, I+O Laboratory Tests 02/04/19 07:37 Red Blood Count 3.48 L, Mean Corpuscular Volume 75.0 L, Mean Corpuscular Hemoglobin 21.3 L, Mean Corpuscular Hemoglobin Concent 28.4 L, Red Cell Distribution Width 23.9 H, Calcium Level 9.0 Vital Signs Date Time Temp Pulse Resp B/P (MAP) Pulse Ox O2 Delivery O2 Flow Rate FiO2 02/04/19 09:37 130/66 02/04/19 09:36 97 02/04/19 06:00 97.7 18 96 I&O- Last 24 Hours up to 6 AM 02/04/19 06:00 Intake Total 1980 ml Output Total 2325 ml Balance -345 ml MARY ELLEN PETER MD February 04, 2019 10:35
[2019-02-04] MEDS: FERROUS SULFATE 325MG TAB PO SCH ×2 (10:43→22:02)
[2019-02-04] MEDS: ASCORBIC ACID 500 MG TAB PO SCH ×2 (10:43→22:02)
[2019-02-04] MEDS: ACETAMINOPHEN TAB 650MG DOSE (2X325MG) PO PRN (10:55)
[2019-02-04] MEDS: TIOTROPIUM INHALER/CAPSULE (SPIRIVA) INH SCH (11:40)
[2019-02-04 14:00] VITALS: BP 105/58
[2019-02-04] MEDS ORDERED: WARFARIN SOD 2.5 MG TAB PO ONE (17:00)
[2019-02-04] MEDS: WARFARIN SOD 5 MG TAB PO SCH (18:12)
[2019-02-04 22:00] VITALS: BP 116/72
[2019-02-04] MEDS: SIMVASTATIN 40 MG TAB PO SCH (22:03)
[2019-02-05 06:00] VITALS: BP 106/52
[2019-02-05 06:32] LABS: HEMATOCRIT 28.2 % (42.0-52.0); HEMOGLOBIN 8.2 g/dl (13.5-17.5); MEAN CORPUSCULAR HEMOGLOBIN 21.8 pg (27.0-33.0); MEAN CORPUSCULAR HGB CONC 29.1 g/dl (32.0-36.5); PLATELET COUNT, AUTOMATED 193 10^3/uL (150-450); RED BLOOD COUNT 3.76 10^6/uL (4.30-6.10); WHITE BLOOD COUNT 5.2 10^3/uL (4.0-10.0)
[2019-02-05 06:42] LABS: INR 1.51; PROTHROMBIN TIME 18.4 SECONDS (12.1-14.4)
[2019-02-05 06:58] LABS: BLOOD UREA NITROGEN 26 MG/DL (7-18); CALCIUM LEVEL 8.7 MG/DL (8.8-10.2); CARBON DIOXIDE LEVEL 34 MEQ/L (21-32); CHLORIDE LEVEL 95 MEQ/L (98-107); CREATININE FOR GFR 1.14 MG/DL (0.70-1.30); GLOMERULAR FILTRATION RATE > 60.0 (>42); GLUCOSE, FASTING 145 MG/DL (70-100); SODIUM LEVEL 135 MEQ/L (136-145)
[2019-02-05] MEDS: TIOTROPIUM INHALER/CAPSULE (SPIRIVA) INH SCH (07:25)
[2019-02-05] MEDS: IPRATROPIUM 0.5MG/ALBUTEROL 2.5MG INH SOL UD 3ML (DUONEB)(J7620) NEB SCH ×4 (07:25→19:57)
[2019-02-05] MEDS: DOXYCYCLINE HYCLATE 100 MG TAB PO SCH ×2 (09:32→23:41)
[2019-02-05] MEDS: OMEPRAZOLE 20 MG CAP PO SCH ×2 (09:32→23:40)
[2019-02-05] MEDS: IRON POLYSAC (NIFEREX) 150 MG CAP PO SCH ×2 (09:32→23:40)
[2019-02-05] MEDS: FERROUS SULFATE 325MG TAB PO SCH ×2 (09:32→23:39)
[2019-02-05] MEDS: ASCORBIC ACID 500 MG TAB PO SCH ×2 (09:32→23:39)
[2019-02-05] MEDS: MONTELUKAST 10 MG TAB PO SCH (09:32)
[2019-02-05] MEDS: POTASSIUM CHLORIDE 10 MEQ SR TABLET PO SCH (09:33)
[2019-02-05] MEDS: TORSEMIDE 20 MG TAB PO SCH ×2 (09:33→17:48)
[2019-02-05] MEDS: ACETAMINOPHEN TAB 650MG DOSE (2X325MG) PO PRN ×2 (09:34→23:40)
[2019-02-05] MEDS: amLODIPine 10 MG TAB PO SCH (09:37)
[2019-02-05] MEDS: HumaLOG INSULIN (NovoLOG) PER UNIT SC SCH ×4 (09:38→21:00)
[2019-02-05] MEDS: LISINOPRIL 10 MG TAB PO SCH (09:38)
--- NOTE | 2019-02-05 11:07 | IPNPDOC ---
Text Note Date of Service The patient was seen on 02/05/19. NOTE Subjective Patient seen and examined at bedside. No acute overnight events reported. Still notes some shortness of breath and lethargy but states this has improved. Objective: GENERAL: NAD, lying comfortably in bed HEENT: NC/AT, EOMI, PERRL NECK: No jugular venous distention (JVD). No bruits. LUNGS: decreased breath sound and mild wheezing HEART: +S1S2, irregular ABDOMEN: Soft, +BS, NT, obese Lower extremities: peripheral edema; left 3rd toe wound - bandage in place Assessment and Plan # Symptomatic iron deficiency anemia, stool negative for occult blood, recent negative EGD/Colonoscopy - s/p 3 unit PRBC - started oral Iron and Vit C - continue serial H/H #Acute on chronic diastolic CHF, fluid overload, echo showed normal EF - continue oral Torsemide @ 40 mg BID # Hypomagnesium - continue to replete as needed #Chronic afib - rate controlled - continue coumadin - sub-therapeutic today # Left 3rd toe infection, s/p aspiration, wound culture + MRSA but no positive blood cultures - receiving oral doxycycline #HTN, BP stable #COPD, not in acute exacerbation, will continue duonebs # DM T2, will A1c 7.8%, will continue insulin #dispo: plans to discharge to [facility] pending stable anemia; extra dose coumadin tonight; pending therapeutic INR - continue to monitor H/H VS,Fishbone, I+O VS, Fishbone, I+O Laboratory Tests 02/05/19 05:48 Red Blood Count 3.76 L, Mean Corpuscular Volume 75.0 L, Mean Corpuscular Hem oglobin 21.8 L, Mean Corpuscular Hemoglobin Concent 29.1 L, Red Cell Distribution Width 23.9 H, Calcium Level 8.7 L Vital Signs Date Time Temp Pulse Resp B/P (MAP) Pulse Ox O2 Delivery O2 Flow Rate FiO2 02/05/19 09:37 92 122/60 02/05/19 06:00 97.8 18 92 I&O- Last 24 Hours up to 6 AM 02/05/19 06:00 Intake Total 2860 ml Output Total 2500 ml Balance 360 ml MARY ELLEN PETER MD February 05, 2019 11:07
[2019-02-05] MEDS: DOCUSATE SODIUM 100 MG CAP PO SCH (13:21)
[2019-02-05 14:00] VITALS: BP 118/73
[2019-02-05] MEDS ORDERED: WARFARIN SOD 5 MG TAB PO ONE (17:00)
[2019-02-05] MEDS: WARFARIN SOD 5 MG TAB PO SCH (17:48)
[2019-02-05 22:00] VITALS: BP 128/66
[2019-02-05] MEDS: SIMVASTATIN 40 MG TAB PO SCH (23:41)
[2019-02-06 05:57] LABS: HEMATOCRIT 29.7 % (42.0-52.0); HEMOGLOBIN 8.6 g/dl (13.5-17.5); MEAN CORPUSCULAR HEMOGLOBIN 21.7 pg (27.0-33.0); PLATELET COUNT, AUTOMATED 225 10^3/uL (150-450); RED BLOOD COUNT 3.96 10^6/uL (4.30-6.10); WHITE BLOOD COUNT 4.8 10^3/uL (4.0-10.0)
[2019-02-06 06:00] VITALS: BP 109/71
[2019-02-06 06:04] LABS: INR 1.76; PROTHROMBIN TIME 20.8 SECONDS (12.1-14.4)
[2019-02-06 06:18] LABS: BLOOD UREA NITROGEN 28 MG/DL (7-18); CALCIUM LEVEL 8.8 MG/DL (8.8-10.2); CARBON DIOXIDE LEVEL 34 MEQ/L (21-32); CHLORIDE LEVEL 94 MEQ/L (98-107); GLOMERULAR FILTRATION RATE > 60.0 (>42); GLUCOSE, FASTING 148 MG/DL (70-100); SODIUM LEVEL 133 MEQ/L (136-145)
[2019-02-06] MEDS: TIOTROPIUM INHALER/CAPSULE (SPIRIVA) INH SCH (07:25)
[2019-02-06] MEDS: IPRATROPIUM 0.5MG/ALBUTEROL 2.5MG INH SOL UD 3ML (DUONEB)(J7620) NEB SCH ×4 (07:25→20:27)
[2019-02-06] MEDS: amLODIPine 10 MG TAB PO SCH (09:00)
[2019-02-06] MEDS: DOCUSATE SODIUM 100 MG CAP PO SCH (09:12)
[2019-02-06] MEDS: HumaLOG INSULIN (NovoLOG) PER UNIT SC SCH ×4 (09:12→21:00)
[2019-02-06] MEDS: POTASSIUM CHLORIDE 10 MEQ SR TABLET PO SCH (09:15)
[2019-02-06] MEDS: IRON POLYSAC (NIFEREX) 150 MG CAP PO SCH ×2 (09:15→21:18)
[2019-02-06] MEDS: DOXYCYCLINE HYCLATE 100 MG TAB PO SCH ×2 (09:16→21:18)
[2019-02-06] MEDS: MONTELUKAST 10 MG TAB PO SCH (09:16)
[2019-02-06] MEDS: FERROUS SULFATE 325MG TAB PO SCH ×2 (09:16→21:18)
[2019-02-06] MEDS: OMEPRAZOLE 20 MG CAP PO SCH ×2 (09:16→21:18)
[2019-02-06] MEDS: ASCORBIC ACID 500 MG TAB PO SCH ×2 (09:16→21:18)
[2019-02-06] MEDS: TORSEMIDE 20 MG TAB PO SCH ×2 (09:16→18:30)
[2019-02-06] MEDS: LISINOPRIL 10 MG TAB PO SCH (09:22)
--- NOTE | 2019-02-06 11:44 | IPNPDOC ---
Text Note Date of Service The patient was seen on 02/06/19. NOTE Subjective Patient seen and examined at bedside. No acute overnight events reported. Still notes some shortness of breath and lethargy but states this has improved. Objective: GENERAL: NAD, lying comfortably in bed HEENT: NC/AT, EOMI, PERRL NECK: No jugular venous distention (JVD). No bruits. LUNGS: decreased breath sound and mild wheezing HEART: +S1S2, irregular ABDOMEN: Soft, +BS, NT, obese Lower extremities: peripheral edema; left 3rd toe wound - bandage in place Assessment and Plan # Symptomatic iron deficiency anemia, stool negative for occult blood, recent negative EGD/Colonoscopy - s/p 3 unit PRBC - started oral Iron and Vit C - continue serial H/H - stable today #Acute on chronic diastolic CHF, fluid overload, echo showed normal EF - continue oral Torsemide @ 40 mg BID # Hypomagnesemia - continue to replete as needed #Chronic afib - rate controlled - continue coumadin - sub-therapeutic today # Left 3rd toe infection, s/p aspiration, wound culture + MRSA but no positive blood cultures - receiving oral doxycycline #HTN, BP stable #COPD, not in acute exacerbation, will continue duonebs # DM T2, will A1c 7.8%, will continue insulin #dispo: plans to discharge to [facility] pending stable anemia; extra dose coumadin again tonight; pending therapeutic INR - continue to monitor H/H VS,Fishbone, I+O VS, Fishbone, I+O Laboratory Tests 02/06/19 05:34 Red Blood Count 3.96 L, Mean Corpuscular Volume 75.0 L, Mean Corpuscular Hemoglobin 21.7 L, Mean Corpuscular Hemoglobin Concent 29.0 L, Red Cell Distribution Width 24.0 H, Calcium Level 8.8 Vital Signs Date Time Temp Pulse Resp B/P (MAP) Pulse Ox O2 Delivery O2 Flow Rate FiO2 02/06/19 09:22 110/54 02/06/19 09:00 76 02/06/19 06:00 98.0 20 95 I&O- Last 24 Hours up to 6 AM 02/06/19 06:00 Intake Total 2080 ml Output Total 2650 ml Balance -570 ml MARY ELLEN PETER MD Feb 06, 2019 11:44
[2019-02-06 14:00] VITALS: BP 123/62
[2019-02-06] MEDS ORDERED: WARFARIN SOD 5 MG TAB PO ONE (17:00)
[2019-02-06] MEDS: WARFARIN SOD 5 MG TAB PO SCH (18:30)
[2019-02-06] MEDS: SIMVASTATIN 40 MG TAB PO SCH (21:19)
[2019-02-06] MEDS: ACETAMINOPHEN TAB 650MG DOSE (2X325MG) PO PRN (21:29)
[2019-02-06 22:00] VITALS: BP 108/63
[2019-02-07 06:00] VITALS: BP 102/60
[2019-02-07 06:09] LABS: HEMATOCRIT 30.7 % (42.0-52.0); HEMOGLOBIN 8.8 g/dl (13.5-17.5); MEAN CORPUSCULAR HEMOGLOBIN 21.8 pg (27.0-33.0); MEAN CORPUSCULAR HGB CONC 28.7 g/dl (32.0-36.5); MEAN CORPUSCULAR VOLUME 76.2 fl (80.0-96.0); PLATELET COUNT, AUTOMATED 225 10^3/uL (150-450); RED BLOOD COUNT 4.03 10^6/uL (4.30-6.10)
[2019-02-07 06:14] LABS: INR 2.09; PROTHROMBIN TIME 23.9 SECONDS (12.1-14.4)
[2019-02-07 06:34] LABS: BLOOD UREA NITROGEN 26 MG/DL (7-18); CALCIUM LEVEL 8.9 MG/DL (8.8-10.2); CARBON DIOXIDE LEVEL 33 MEQ/L (21-32); CHLORIDE LEVEL 95 MEQ/L (98-107); CREATININE FOR GFR 1.21 MG/DL (0.70-1.30); GLOMERULAR FILTRATION RATE > 60.0 (>42); GLUCOSE, FASTING 150 MG/DL (70-100); SODIUM LEVEL 135 MEQ/L (136-145)
[2019-02-07] MEDS: TIOTROPIUM INHALER/CAPSULE (SPIRIVA) INH SCH (07:36)
[2019-02-07] MEDS: IPRATROPIUM 0.5MG/ALBUTEROL 2.5MG INH SOL UD 3ML (DUONEB)(J7620) NEB SCH ×4 (07:36→20:09)
[2019-02-07] MEDS: MONTELUKAST 10 MG TAB PO SCH (09:15)
[2019-02-07] MEDS: TORSEMIDE 20 MG TAB PO SCH ×2 (09:15→18:05)
[2019-02-07] MEDS: HumaLOG INSULIN (NovoLOG) PER UNIT SC SCH ×4 (09:15→21:00)
[2019-02-07] MEDS: ASCORBIC ACID 500 MG TAB PO SCH ×2 (09:15→20:07)
[2019-02-07] MEDS: amLODIPine 10 MG TAB PO SCH (09:17)
[2019-02-07] MEDS: DOCUSATE SODIUM 100 MG CAP PO SCH (09:18)
[2019-02-07] MEDS: POTASSIUM CHLORIDE 10 MEQ SR TABLET PO SCH (09:18)
[2019-02-07] MEDS: FERROUS SULFATE 325MG TAB PO SCH ×2 (09:18→20:07)
[2019-02-07] MEDS: OMEPRAZOLE 20 MG CAP PO SCH ×2 (09:18→20:07)
[2019-02-07] MEDS: LISINOPRIL 10 MG TAB PO SCH (09:18)
[2019-02-07] MEDS: DOXYCYCLINE HYCLATE 100 MG TAB PO SCH ×2 (09:18→20:07)
--- NOTE | 2019-02-07 10:43 | IPNPDOC ---
Text Note Date of Service The patient was seen on 02/07/19. NOTE Subjective Patient seen and examined at bedside. No acute overnight events reported. Still notes some shortness of breath and cough. Objective: GENERAL: NAD, lying comfortably in bed HEENT: NC/AT, EOMI, PERRL NECK: No jugular venous distention (JVD). No bruits. LUNGS: CTA B/L HEART: +S1S2, irregular ABDOMEN: Soft, +BS, NT, obese Lower extremities: peripheral edema; left 3rd toe wound - bandage in place Assessment and Plan # Symptomatic iron deficiency anemia, stool negative for occult blood, recent negative EGD/Colonoscopy - s/p 3 unit PRBC - started oral Iron and Vit C - continue serial H/H - stable today #Acute on chronic diastolic CHF, fluid overload, echo showed normal EF - continue oral Torsemide @ 40 mg BID - possible mildly fluid overload - CXR/BNP pending - likely administer extra dose of torsemide or lasix IV x 1 # Hypomagnesemia - continue to replete as needed #Chronic afib - rate controlled - continue coumadin - sub-therapeutic today # Left 3rd toe infection, s/p aspiration, wound culture + MRSA but no positive blood cultures - receiving oral doxycycline #HTN, BP stable #COPD, not in acute exacerbation, will continue duonebs # DM T2, will A1c 7.8%, will continue insulin #dispo: plans to discharge to [facility] pending stable anemia; follow h/h, creatinine VS,Fishbone, I+O VS, Fishbone, I+O Laboratory Tests 02/07/19 05:28 Red Blood Count 4.03 L, Mean Corpuscular Volume 76.2 L, Mean Corpuscular Hemoglobin 21.8 L, Mean Corpuscular Hemoglobin Concent 28.7 L, Red Cell Distribution Width 24.5 H, Calcium Level 8.9 Vital Signs Date Time Temp Pulse Resp B/P (MAP) Pulse Ox O2 Delivery O2 Flow Rate FiO2 02/07/19 09:18 108/56 02/07/19 09:17 70 02/07/19 06:00 97.3 18 99 I&O- Last 24 Hours up to 6 AM 02/07/19 06:00 Intake Total 2540 ml Output Total 1650 ml Balance 890 ml MARY ELLEN PETER MD Feb 07, 2019 10:43
[2019-02-07 11:04] LABS: NT-PRO BNP 805 PG/ML (<450)
--- NOTE | 2019-02-07 11:40 | REP ---
Clinical: Cough . Comparison: 01/26/2019, 07/30/2018 Technique: PA and lateral. Findings: The mediastinum and cardiac silhouette are normal. The lung huitron are clear and without acute consolidation, effusion, or pneumothorax. Linear scarring in the left mid lung zone unchanged. The skeletal structures are intact and normal. Impression: 1. No acute cardiopulmonary process. Electronically Signed by Adiel Santacruz MD 02/07/2019 11:31 A
[2019-02-07 14:00] VITALS: BP 106/59
[2019-02-07] MEDS ORDERED: FUROSEMIDE 40 MG/4 ML VIAL (J1940) IV ONE (14:45)
[2019-02-07] MEDS: WARFARIN SOD 5 MG TAB PO SCH (18:05)
[2019-02-07] MEDS: SIMVASTATIN 40 MG TAB PO SCH (20:07)
[2019-02-07] MEDS: ACETAMINOPHEN TAB 650MG DOSE (2X325MG) PO PRN (20:08)
[2019-02-07 22:00] VITALS: BP 90/50
[2019-02-08 06:00] VITALS: BP 100/62
[2019-02-08 06:32] LABS: HEMATOCRIT 30.6 % (42.0-52.0); MEAN CORPUSCULAR HEMOGLOBIN 22.2 pg (27.0-33.0); MEAN CORPUSCULAR HGB CONC 29.4 g/dl (32.0-36.5); MEAN CORPUSCULAR VOLUME 75.6 fl (80.0-96.0); PLATELET COUNT, AUTOMATED 232 10^3/uL (150-450); RED BLOOD COUNT 4.05 10^6/uL (4.30-6.10); WHITE BLOOD COUNT 12.2 10^3/uL (4.0-10.0)
[2019-02-08 06:42] LABS: INR 2.29; PROTHROMBIN TIME 25.7 SECONDS (12.1-14.4)
[2019-02-08 06:58] LABS: CALCIUM LEVEL 8.6 MG/DL (8.8-10.2); CREATININE FOR GFR 1.39 MG/DL (0.70-1.30); GLOMERULAR FILTRATION RATE 52.9 (>42); POTASSIUM SERUM 4.4 MEQ/L (3.5-5.1)
[2019-02-08] MEDS: TIOTROPIUM INHALER/CAPSULE (SPIRIVA) INH SCH (07:47)
[2019-02-08] MEDS: IPRATROPIUM 0.5MG/ALBUTEROL 2.5MG INH SOL UD 3ML (DUONEB)(J7620) NEB SCH ×4 (07:47→20:00)
[2019-02-08] MEDS: DOCUSATE SODIUM 100 MG CAP PO SCH (07:55)
[2019-02-08] MEDS: amLODIPine 10 MG TAB PO SCH (07:57)
[2019-02-08] MEDS: FERROUS SULFATE 325MG TAB PO SCH ×2 (07:58→21:07)
[2019-02-08] MEDS: TORSEMIDE 20 MG TAB PO SCH ×2 (07:58→17:14)
[2019-02-08] MEDS: OMEPRAZOLE 20 MG CAP PO SCH ×2 (07:59→21:07)
[2019-02-08] MEDS: MONTELUKAST 10 MG TAB PO SCH (07:59)
[2019-02-08] MEDS: HumaLOG INSULIN (NovoLOG) PER UNIT SC SCH ×4 (07:59→21:00)
[2019-02-08] MEDS: POTASSIUM CHLORIDE 10 MEQ SR TABLET PO SCH (08:00)
[2019-02-08] MEDS: LISINOPRIL 10 MG TAB PO SCH (08:00)
[2019-02-08] MEDS: DOXYCYCLINE HYCLATE 100 MG TAB PO SCH ×2 (08:00→21:07)
[2019-02-08] MEDS: ASCORBIC ACID 500 MG TAB PO SCH ×2 (08:00→21:07)
--- NOTE | 2019-02-08 10:52 | IPNPDOC ---
Text Note Date of Service The patient was seen on 02/08/19. NOTE Subjective Patient seen and examined at bedside. No acute overnight events reported. Still some shortness of breath. Also notes polyuria, however he did receive lasix IV yesterday. Feels his lower extremity has improved. Objective: GENERAL: NAD, lying comfortably in bed HEENT: NC/AT, EOMI, PERRL NECK: No jugular venous distention (JVD). No bruits. LUNGS: CTA B/L HEART: +S1S2, irregular ABDOMEN: Soft, +BS, NT, obese Lower extremities: peripheral edema; left 3rd toe wound - bandage in place Assessment and Plan # Symptomatic iron deficiency anemia, stool negative for occult blood, recent negative EGD/Colonoscopy - s/p 3 unit PRBC - started oral Iron and Vit C - stable #fever/leukocytosis/elevated Cr - check UA/UCx - CXR, blood cultures pending #Acute/chronic diastolic CHF - grossly compensated - echo showed normal EF - continue oral Torsemide @ 40 mg BID # Hypomagnesemia - continue to replete as needed #Chronic afib - rate controlled - continue coumadin - sub-therapeutic - daily INR # Left 3rd toe infection, s/p aspiration, wound culture + MRSA but no positive blood cultures - receiving oral doxycycline #HTN, BP stable #COPD, not in acute exacerbation, will continue duonebs # DM T2, will A1c 7.8%, will continue insulin #dispo: d/c to [facility] on hold dure to fever, leukocytosis, elevated creatinien; follow BCx, UA, UCx, creatinine VS,Fishbone, I+O VS, Fishbone, I+O Laboratory Tests 02/08/19 06:07 Red Blood Count 4.05 L, Mean Corpuscular Volume 75.6 L, Mean Corpuscular Hemoglobin 22.2 L, Mean Corpuscular Hemoglobin Concent 29.4 L, Red Cell Distribution Width 24.8 H, Calcium Level 8.6 L Vital Signs Date Time Temp Pulse Resp B/P (MAP) Pulse Ox O2 Delivery O2 Flow Rate FiO2 02/08/19 07:57 108 108/51 02/08/19 06:00 100.8 17 90 I&O- Last 24 Hours up to 6 AM 02/08/19 06:00 Intake Total 780 ml Output Total 625 ml Balance 155 ml LALDIN,MARY ELLEN S. MD Feb 08, 2019 10:52
[2019-02-08 14:00] VITALS: BP 112/65
[2019-02-08] MEDS: WARFARIN SOD 5 MG TAB PO SCH (17:14)
[2019-02-08] MEDS: SIMVASTATIN 40 MG TAB PO SCH (21:07)
[2019-02-08 22:00] VITALS: BP 90/52
--- NOTE | 2019-02-09 02:38 | REP ---
Clinical: Fever and shortness of breath . Comparison: 02/07/2019, 01/26/2019 Technique: PA and lateral. Findings: The cardiac silhouette is within normal limits. Mild bilateral hilar prominence may be related to pulmonary vasculature although subtle adenopathy cannot be excluded. Linear scarring in the left mid lung zone remains stable. Very subtle bronchitis and possible perihilar atelectasis cannot be excluded. No discrete focal consolidation. No effusion. No pneumothorax. Skeletal structures stable. Impression: 1. Several mediastinal adenopathy cannot be excluded along with the possibility of mild bronchitis and subtle atelectasis. If the patient remains symptomatic consider contrast enhanced chest CT for further investigation. Electronically Signed by Adiel Santacruz MD 02/09/2019 02:30 A
[2019-02-09 05:59] LABS: HEMATOCRIT 29.1 % (42.0-52.0); HEMOGLOBIN 8.5 g/dl (13.5-17.5); MEAN CORPUSCULAR HEMOGLOBIN 22.8 pg (27.0-33.0); MEAN CORPUSCULAR HGB CONC 29.2 g/dl (32.0-36.5); PLATELET COUNT, AUTOMATED 200 10^3/uL (150-450); RED BLOOD COUNT 3.73 10^6/uL (4.30-6.10); WHITE BLOOD COUNT 6.2 10^3/uL (4.0-10.0)
[2019-02-09 06:00] VITALS: BP 103/60
[2019-02-09 06:09] LABS: INR 2.28; PROTHROMBIN TIME 25.6 SECONDS (12.1-14.4)
[2019-02-09 06:18] LABS: CALCIUM LEVEL 8.5 MG/DL (8.8-10.2); CREATININE FOR GFR 1.37 MG/DL (0.70-1.30); GLOMERULAR FILTRATION RATE 53.8 (>42)
[2019-02-09] MEDS: TIOTROPIUM INHALER/CAPSULE (SPIRIVA) INH SCH (07:10)
[2019-02-09] MEDS: IPRATROPIUM 0.5MG/ALBUTEROL 2.5MG INH SOL UD 3ML (DUONEB)(J7620) NEB SCH ×4 (07:11→19:58)
[2019-02-09] MEDS: HumaLOG INSULIN (NovoLOG) PER UNIT SC SCH ×4 (07:52→21:00)
[2019-02-09] MEDS: MONTELUKAST 10 MG TAB PO SCH (07:53)
[2019-02-09] MEDS: OMEPRAZOLE 20 MG CAP PO SCH ×2 (07:53→21:41)
[2019-02-09] MEDS: DOCUSATE SODIUM 100 MG CAP PO SCH (07:53)
[2019-02-09] MEDS: POTASSIUM CHLORIDE 10 MEQ SR TABLET PO SCH (07:53)
[2019-02-09] MEDS: LISINOPRIL 10 MG TAB PO SCH (07:54)
[2019-02-09] MEDS: FERROUS SULFATE 325MG TAB PO SCH ×2 (07:54→21:41)
[2019-02-09] MEDS: DOXYCYCLINE HYCLATE 100 MG TAB PO SCH ×2 (07:54→21:41)
[2019-02-09] MEDS: ASCORBIC ACID 500 MG TAB PO SCH ×2 (07:54→21:41)
[2019-02-09] MEDS: TORSEMIDE 20 MG TAB PO SCH ×2 (07:54→17:04)
[2019-02-09 07:55] VITALS: BP 103/60
[2019-02-09] MEDS: amLODIPine 10 MG TAB PO SCH (07:55)
[2019-02-09 14:00] VITALS: BP 108/60
[2019-02-09] MEDS: WARFARIN SOD 5 MG TAB PO SCH (17:04)
[2019-02-09] MEDS: SIMVASTATIN 40 MG TAB PO SCH (21:41)
[2019-02-09 22:00] VITALS: BP 91/60
[2019-02-10] MEDS: ACETAMINOPHEN TAB 650MG DOSE (2X325MG) PO PRN (00:49)
[2019-02-10 06:00] VITALS: BP 109/56
[2019-02-10 06:11] LABS: HEMATOCRIT 29.5 % (42.0-52.0); HEMOGLOBIN 8.8 g/dl (13.5-17.5); MEAN CORPUSCULAR HEMOGLOBIN 22.6 pg (27.0-33.0); MEAN CORPUSCULAR HGB CONC 29.8 g/dl (32.0-36.5); MEAN CORPUSCULAR VOLUME 75.8 fl (80.0-96.0); PLATELET COUNT, AUTOMATED 208 10^3/uL (150-450); RED BLOOD COUNT 3.89 10^6/uL (4.30-6.10); WHITE BLOOD COUNT 5.3 10^3/uL (4.0-10.0)
[2019-02-10 06:22] LABS: INR 2.14; PROTHROMBIN TIME 24.3 SECONDS (12.1-14.4)
[2019-02-10 06:34] LABS: BLOOD UREA NITROGEN 38 MG/DL (7-18); CALCIUM LEVEL 8.3 MG/DL (8.8-10.2); CARBON DIOXIDE LEVEL 28 MEQ/L (21-32); CHLORIDE LEVEL 98 MEQ/L (98-107); CREATININE FOR GFR 1.23 MG/DL (0.70-1.30); GLOMERULAR FILTRATION RATE > 60.0 (>42); GLUCOSE, FASTING 147 MG/DL (70-100); SODIUM LEVEL 134 MEQ/L (136-145)
--- NOTE | 2019-02-10 07:21 | IPNPDOC ---
Subjective Date Seen The patient was seen on 02/09/19. Subjective Chief Complaint/HPI patient was to be discharged yesterday but placed on hold because of fever and leukocytosis. He is being seen for symptomatic anemia, DM, HTN Currently patient states feels better. denies fever, chills, N or V; Objective Physical Examination General Exam: Positive: Alert, Cooperative, No Acute Distress Eye Exam: Positive: PERRLA ENT Exam: Positive: Mucous membr. moist/pink Chest Exam: Positive: Clear to auscultation, Rhonchi (course but cleared with cough), Other (no wheeze, no rales) Heart Exam: Positive: Rate Normal, Irregular Rhythm Telemetry: Positive: Atrial fibrillation Abdomen Exam: Positive: Normal bowel sounds, Soft, Other (NT, ND) Skin Exam: Positive: Nl turgor and temperature Neuro Exam: Positive: Normal Speech, Normal Tone, Sensation Intact Psych Exam: Positive: Mental status NL, Mood NL, Oriented x 3 Assessment /Plan Assessment 1) fever/leukocytosis/elevated Cr - CXR suggestive of bronchitis. Improved. If remains afebrile, will d/c in AM. on doxy; 2) Symptomatic iron deficiency anemia, stool negative for occult blood, recent negative EGD/Colonoscopy - s/p 3 unit PRBC; continue oral iron, vit C 3) Acute/chronic diastolic CHF - compensated - echo showed normal EF - continue oral Torsemide @ 40 mg BID 4) Hypomagnesemia - resolved 5) Chronic afib - rate controlled; continue warfarin with goal INR 2-3; high decision making for monitoring of warfarin 6) Left 3rd toe infection, s/p aspiration, wound culture + MRSA but no positive blood cultures - continue doxy 7) HTN, essential; stable 8) COPD, not in acute exacerbation - stable, continue nebs 9) DM T2, will A1c 7.8%, will continue insulin Plan/VTE VTE Prophylaxis Ordered?: No (on warfarin) VS, I&O, 24H, Fishbone Vital Signs/I&O Vital Signs Date Time Temp Pulse Resp B/P (MAP) Pulse Ox O2 Delivery O2 Flow Rate FiO2 02/09/19 14:00 98.3 85 16 108/60 (76) 96 I&O- Last 24 Hours up to 6 AM 02/09/19 06:00 Intake Total 900 ml Output Total 550 ml Balance 350 ml Laboratory Data 24H LABS Laboratory Tests 2 02/08/19 20:38: Bedside Glucose (Misc Panel) 207H 02/09/19 05:36: Nucleated Red Blood Cells % (auto) 0.0, Prothrombin Time 25.6H, Prothromb Time International Ratio 2.28, Anion Gap 8, Glomerular Filtration Rate 53.8, Blood Urea Nitrogen 36H, Creatinine 1.37H, Sodium Level 134L, Potassium Level 4.0, Chloride Level 96L, Carbon Dioxide Level 30, Calcium Level 8.5L 02/09/19 11:46: Bedside Glucose (Misc Panel) 150H 02/09/19 16:41: Bedside Glucose (Misc Panel) 179H 02/09/19 19:51: Bedside Glucose (Misc Panel) 166H CBC/BMP Laboratory Tests 02/09/19 05:36 Red Blood Count 3.73 L, Mean Corpuscular Volume 78.0 L, Mean Corpuscular Hemoglobin 22.8 L, Mean Corpuscular Hemoglobin Concent 29.2 L, Red Cell Distribution Width 24.7 H, Calcium Level 8.5 L Microbiology Microbiology 02/08/19 Blood Culture - Preliminary, Resulted No growth after 24 hours . All specim... 02/08/19 Blood Culture - Preliminary, Resulted No growth after 24 hours . All specim... 02/08/19 Urine Culture - Final, Complete ZAFAR GIBBONS DO Feb 09, 2019 20:13
[2019-02-10] MEDS: TIOTROPIUM INHALER/CAPSULE (SPIRIVA) INH SCH (08:07)
[2019-02-10] MEDS: IPRATROPIUM 0.5MG/ALBUTEROL 2.5MG INH SOL UD 3ML (DUONEB)(J7620) NEB SCH ×2 (08:07→11:46)
[2019-02-10] MEDS: DOCUSATE SODIUM 100 MG CAP PO SCH (09:00)
[2019-02-10] MEDS: amLODIPine 10 MG TAB PO SCH (09:00)
[2019-02-10] MEDS: LISINOPRIL 10 MG TAB PO SCH (09:00)
[2019-02-10] MEDS: FERROUS SULFATE 325MG TAB PO SCH (09:16)
[2019-02-10] MEDS: ASCORBIC ACID 500 MG TAB PO SCH (09:16)
[2019-02-10] MEDS: HumaLOG INSULIN (NovoLOG) PER UNIT SC SCH (09:16)
[2019-02-10] MEDS: DOXYCYCLINE HYCLATE 100 MG TAB PO SCH (09:16)
[2019-02-10] MEDS: OMEPRAZOLE 20 MG CAP PO SCH (09:17)
[2019-02-10] MEDS: POTASSIUM CHLORIDE 10 MEQ SR TABLET PO SCH (09:17)
[2019-02-10] MEDS: TORSEMIDE 20 MG TAB PO SCH (09:17)
[2019-02-10] MEDS: MONTELUKAST 10 MG TAB PO SCH (09:17)
[2019-02-10] MEDS ORDERED: OMEP20CA3 PO (10:39)
[2019-02-10] MEDS ORDERED: METF-723 PO (10:39)
[2019-02-10] MEDS ORDERED: TORS20TA2 PO (10:39)
[2019-02-10] MEDS ORDERED: MULTCAP PO (10:39)
[2019-02-10] MEDS ORDERED: COLA100C5 PO (10:39)
[2019-02-10] MEDS ORDERED: MONT10TA2 PO (10:39)
[2019-02-10] MEDS ORDERED: ALBU83IN NEB (10:39)
[2019-02-10] MEDS ORDERED: GNP1000T11 PO (10:39)
[2019-02-10] MEDS ORDERED: PRED10TA2 PO (10:39)
[2019-02-10] MEDS ORDERED: ASCO50TA PO (10:39)
[2019-02-10] MEDS ORDERED: ZOCO80TA PO (10:39)
[2019-02-10] MEDS ORDERED: TIOT18INH INH (10:39)
[2019-02-10] MEDS ORDERED: COUM1TAB17 PO (10:39)
[2019-02-10] MEDS ORDERED: ACET-907 PO (10:39)
[2019-02-10] MEDS ORDERED: KLOR10TA76 PO (10:39)
[2019-02-10] MEDS ORDERED: PROAAER10 INH (10:39)
[2019-02-10] MEDS ORDERED: LISI-538 PO (10:39)
[2019-02-10] MEDS ORDERED: AMLO10TA5 PO (10:39)
[2019-02-10] MEDS ORDERED: DULE200A INH (10:39)
[2019-02-10] MEDS ORDERED: DOXY100T PO ×2 (10:39→11:38)
--- NOTE | 2019-02-10 11:30 | DS.PDOC ---
Discharge Summary General Date of Admission January 26, 2019 at 18:06 Date of Discharge 02/10/19 Attending Physician: ZAFAR GIBBONS DO Discharge Summary PROCEDURES PERFORMED DURING STAY: Transfusion 3 unit pRBC ADMITTING DIAGNOSES: 1. Symptomatic iron deficiency anemia. 2. Acute on chronic congestive heart failure (CHF). Ejection fraction (EF) is unknown. 3. Hypertension. 4. Chronic atrial fibrillation. 5. Type 2 diabetes. 6. Acid reflux. 7. Morbid obesity. DISCHARGE DIAGNOSES: 1) acute bronchitis - 2) Symptomatic acute iron deficiency anemia, of unknown etiology 3) Acute/chronic diastolic CHF - compensated 4) Hypomagnesemia - resolved 5) Chronic afib -on warfarin 6) Left 3rd toe infection, s/p aspiration, wound culture + MRSA but no positive blood cultures - finished doxy 7) HTN, essential; 8) COPD, not in acute exacerbation - 9) DM T2, will A1c 7.8%, not on chronic insulin therapy and with hyperglycemia COMPLICATIONS/CHIEF COMPLAINT: Symptomatic Anemia. HISTORY OF PRESENT ILLNESS: 78-year-old male sent from [place] to ED due to SOB, anemia and several chronic medical conditions. In the ER his initial workup demonstrated he has very severe anemia. His hemoglobin and hematocrit down to 6.6/24.4. His last hemoglobin and hematocrit were here in the hospital back in 07/30/2018, which was 8.9/31. Also, per medical record in the computer, he was here recently for esophagogastroduodenoscopy (EGD) and colonoscopy done, which only found a few polyps, which were removed. He had heme negative stool in ED. HOSPITAL COURSE: Patient was admitted for blood transfusion and found to be in CHF. His HCTZ was changed to torsemide; He was continued on his warfarin for underlying afib. Patient was also found to have cellulitis to left second toe - treated with doxycycline. He improved and on 02/08/19 developed 1 day of fever, cough without reoccurance and found to have a bronchitis. Patient completed dose of doxycycline and remained afebrile. He was treated symptomatically for the bronchitis and nebulizers continued. He did not have COPD exacerbation and his steroids from home were not continued. As for his anemia - unclear etiology - not from GI bleed and he was transfused 3 unit pRBC with improvement. His acute on chronic CHF slowly improved with changing diuretic from HCTZ torosemide and cardiac echo showed normal EF. He has underlying chronic afib without RVR and was maintained on warfarin and rate controlled meds. Patient is being discharged to assisted living in stable condition DISCHARGE MEDICATIONS: Please see below. ALLERGIES: Please see below. PHYSICAL EXAMINATION ON DISCHARGE: VITAL SIGNS: Please see below. General: pleasant, NAD, AAOx3, speaking full sentences Heart - irreg/irreg, no murmur LCTA with scant wheeze, no rhonchi, no rales. Ext: trace edema bilaterally Skin/musuloskeletal: left foot 3 toe with healed lesion, no signs of cellulitis LABORATORY DATA: Please see below. IMAGING: CXR with bronchitis PROGNOSIS: FAIR ACTIVITY:as tolerated DIET:regular DISCHARGE PLAN: discharge to assisted living. DISCHARGE INSTRUCTIONS: 1. f/u 5-7 days with [place] PCP to recheck lungs and anemia 2. f/u with outpatient podiatry (set up thru [place]) 3. f/u with podiatry (schedule thru the [place]) DISCHARGE CONDITION:stable TIME SPENT ON DISCHARGE: 40 minutes. Vital Signs/I&Os Vital Signs Date Time Temp Pulse Resp B/P (MAP) Pulse Ox O2 Delivery O2 Flow Rate FiO2 02/10/19 06:00 96.7 97 18 109/56 (73) 96 I&O- Last 24 Hours up to 6 AM 02/10/19 06:00 Intake Total 1460 ml Output Total 1475 ml Balance -15 ml Laboratory Data Labs 24H Laboratory Tests 2 02/09/19 11:46: Bedside Glucose (Misc Panel) 150H 02/09/19 16:41: Bedside Glucose (Misc Panel) 179H 02/09/19 19:51: Bedside Glucose (Misc Panel) 166H 02/10/19 05:49: Nucleated Red Blood Cells % (auto) 0.0, Prothrombin Time 24.3H, Prothromb Time International Ratio 2.14, Anion Gap 8, Glomerular Filtration Rate > 60.0, Blood Urea Nitrogen 38H, Creatinine 1.23, Sodium Level 134L, Potassium Level 4.0, Chloride Level 98, Carbon Dioxide Level 28, Calcium Level 8.3L CBC/BMP Laboratory Tests 02/10/19 05:49 Red Blood Count 3.89 L, Mean Corpuscular Volume 75.8 L, Mean Corpuscular Hemoglobin 22.6 L, Mean Corpuscular Hemoglobin Concent 29.8 L, Red Cell Distribution Width 24.8 H, Calcium Level 8.3 L FSBS Laboratory Tests Test 02/09/19 11:46 02/09/19 16:41 02/09/19 19:51 Range/Units Bedside Glucose (Misc Panel) 150 179 166 83-110 MG/DL Microbiology Microbiology 02/08/19 Blood Culture - Preliminary, Resulted No growth after 24 hours . All specim... 02/08/19 Blood Culture - Preliminary, Resulted No growth after 24 hours . All specim... 02/08/19 Urine Culture - Final, Complete Discharge Medications Scheduled Amlodipine Besylate (Amlodipine Besylate) 10 Mg Tab, 10 MG PO DAILY Ascorbic Acid (Vitamin C) 500 Mg Tablet, 500 MG PO BID Docusate Sodium (Colace) 100 Mg Capsule, 100 MG PO DAILY Doxycycline Hyclate (Doxycycline Hyclate) 100 Mg Tablet, 100 MG PO BID Glucosamine Sulfate Dipot Chlr (Glucosamine) 1,000 Mg Tablet, 1,000 MG PO DAILY Lisinopril (Lisinopril) 20 Mg Tablet, 10 MG PO DAILY Metformin HCl (Metformin HCl ER) 500 Mg Tab.er.24h, 1,000 MG PO BID Mometasone/Formoterol (Dulera 200 Mcg/5 Mcg Inhaler) 13 Gm Hfa.aer.ad, 2 PUFF INH QHS Montelukast Sodium (Montelukast Sodium) 10 Mg Tab, 10 MG PO DAILY Multivitamin (Multivitamins) 1 Each Capsule, 1 CAP PO DAILY Omeprazole (Omeprazole) 20 Mg Cap, 20 MG PO BID Potassium Chloride (Klor-Con M10) 10 Meq Tab.er.prt, 20 MEQ PO DAILY Simvastatin (Zocor) 80 Mg Tablet, 40 MG PO QHS Tiotropium [place] Monohydrate (Spiriva) 18 Mcg Cap.w.dev, 1 CAP INH DAILY Torsemide (Torsemide) 20 Mg Tablet, 40 MG PO BID@09,17 Warfarin Sodium (Coumadin) 5 Mg Tablet, 5 MG PO DAILY@1700 Scheduled PRN Acetaminophen (Tylenol) 325 Mg Tablet, 650 MG PO Q4H PRN for PAIN Albuterol Sulf (Albuterol Sulfate) 2.5 Mg/3 Ml Vial.neb, 1 VIAL NEB Q4HP PRN for wheezing Albuterol Sulfate (Proair Hfa) 108 Mcg/Act Aer, 2 PUFF INH Q4H PRN for SHORTNESS OF BREATH Allergies Coded Allergies: tramadol (Verified Adverse Reaction, Unknown, confusion/tremors, 01/26/19) ZAFAR GIBBONS DO Feb 10, 2019 10:19
== END 2019-02-10 12:48 | DRG 811 ==
LOC: EDBD 13:53 → M ED 13:53 → M ED INP 18:06 → M MSPAV 20:25
PROVIDERS: ADMIT Hospitalist; ATTEND Family Medicine
PROC: 30233N1 Transfusion of Nonautologous Red Blood Cells into Peripheral Vein, Percutaneous Approach (ICD-10-PCS; principal; 2019-01-26)
DX: D50.9 Iron deficiency anemia, unspecified (principal); I50.33 Acute on chronic diastolic (congestive) heart failure; Z68.41 Body mass index [BMI] 40.0-44.9, adult; L02.612 Cutaneous abscess of left foot; J44.0 Chronic obstructive pulmonary disease with (acute) lower respiratory infection; I48.2 Chronic atrial fibrillation; I11.0 Hypertensive heart disease with heart failure; E11.9 Type 2 diabetes mellitus without complications; L03.032 Cellulitis of left toe; B95.62 Methicillin resistant Staphylococcus aureus infection as the cause of diseases classified elsewhere; E83.42 Hypomagnesemia; D72.829 Elevated white blood cell count, unspecified; J20.9 Acute bronchitis, unspecified; K21.9 Gastro-esophageal reflux disease without esophagitis; R50.9 Fever, unspecified; E66.01 Morbid (severe) obesity due to excess calories; Z85.46 Personal history of malignant neoplasm of prostate; Z88.5 Allergy status to narcotic agent; Z87.891 Personal history of nicotine dependence; Z79.01 Long term (current) use of anticoagulants; Z79.899 Other long term (current) drug therapy

== ENCOUNTER 2019-02-13 22:43 | Emergency (ER) | payer OTHER, MEDICARE ==
[~2019-02-13 22:43] MED LIST changes: +ACET-907 PO; +ALBU83IN NEB; +ASCO50TA PO; +ASMA220A2 INH; +COLA100C5 PO; +COUM1TAB17 PO; +DOXY100T PO; +DULE200A INH; +GNP1000T11 PO; +KLOR10TA76 PO; +LISI-538 PO; +METF-723 PO; +MULTCAP PO; +PRED10TA2 PO; +TIOT18INH INH; +TORS20TA2 PO; +WARF4TAB51 PO; +ZOCO80TA PO
[2019-02-13] MEDS ORDERED: ACETAMINOPHEN 500 MG TAB PO ONE (23:15)
[2019-02-13] MEDS ORDERED: MONT10TA2 PO (23:39)
[2019-02-13] MEDS ORDERED: METF-415 PO (23:39)
[2019-02-13] MEDS ORDERED: COLA100C5 PO (23:39)
[2019-02-13] MEDS ORDERED: DOXY100T PO (23:39)
[2019-02-13] MEDS ORDERED: APAP325T4 PO (23:39)
[2019-02-13] MEDS ORDERED: PROAAER10 INH (23:39)
[2019-02-13] MEDS ORDERED: VITA500C24 PO (23:39)
[2019-02-13] MEDS ORDERED: LISI10TA4 PO (23:39)
[2019-02-13] MEDS ORDERED: SPIR1CAP INH (23:39)
[2019-02-13] MEDS ORDERED: COUM1TAB17 PO (23:39)
[2019-02-13] MEDS ORDERED: ALB2.5NEB INH (23:39)
[2019-02-13] MEDS ORDERED: [UNRECOGNIZED DRUG - CODE] PO (23:39)
[2019-02-13] MEDS ORDERED: MULTCAP PO (23:39)
[2019-02-13] MEDS ORDERED: ZOCO80TA PO (23:39)
[2019-02-13] MEDS ORDERED: DULE200A INH (23:39)
[2019-02-13] MEDS ORDERED: TORS20TA2 PO (23:39)
[2019-02-13] MEDS ORDERED: OMEP-218 PO (23:39)
[2019-02-13] MEDS ORDERED: AMLO10TA5 PO (23:39)
[2019-02-13] MEDS ORDERED: POTA10CA32 PO (23:39)
[2019-02-14 00:33] VITALS: BP 103/59
--- NOTE | 2019-02-14 08:17 | REP ---
PARTIAL LUMBAR SPINE, THREE VIEWS: HISTORY: Back pain. There is no acute fracture. The lumbar intervertebral discs are decreased in height consistent with disc degeneration. Osteophytes are present on L1 through L3 and L5. There is sclerosis of the L4-5 facets. There are 4 mm of grade 1 spondylolisthesis of L4 on L5. Calcifications are present in the abdomen. IMPRESSION: Degenerative change as described above. Electronically Signed by Tomi Armijo MD 02/14/2019 08:56 A
== END 2019-02-14 00:47 | disposition home or self-care (01) ==
LOC: M ED 22:43
DX: M47.896 Other spondylosis, lumbar region (principal); M54.5 Low back pain; G89.29 Other chronic pain; I48.91 Unspecified atrial fibrillation; I11.9 Hypertensive heart disease without heart failure; E11.9 Type 2 diabetes mellitus without complications; K21.9 Gastro-esophageal reflux disease without esophagitis; E78.5 Hyperlipidemia, unspecified; J44.9 Chronic obstructive pulmonary disease, unspecified; Z88.5 Allergy status to narcotic agent; Z79.899 Other long term (current) drug therapy; Z79.84 Long term (current) use of oral hypoglycemic drugs; Z79.2 Long term (current) use of antibiotics; Z79.01 Long term (current) use of anticoagulants; Z79.51 Long term (current) use of inhaled steroids

== ENCOUNTER → 2019-02-17 | Outpatient (REF) | payer OTHER, MEDICARE ==
[~2019-02-17] MED LIST changes: +ALB2.5NEB INH; +APAP325T4 PO; +FERR240T PO; +FERR325T3 PO; +FLOM0.4C39 PO; +GLUC100016 PO; +HM V5000 PO; +METF-415 PO; +OMEP-218 PO; +OMEP1CAP73 PO; -OMEP20CA3 PO; -OMEP40CA2 PO; +OMEP40CA97 PO; +POTA10CA32 PO; -SIMV40TA2 PO; +SIMV40TA20 PO; +SPIR1CAP INH; +VITA1TAB23 PO; +VITA250T4 PO; +VITA500C24 PO
[2019-02-17 08:53] LABS: HEMATOCRIT 30.9 % (42.0-52.0); HEMOGLOBIN 9.2 g/dl (13.5-17.5); MEAN CORPUSCULAR HEMOGLOBIN 22.9 pg (27.0-33.0); MEAN CORPUSCULAR HGB CONC 29.8 g/dl (32.0-36.5); MEAN CORPUSCULAR VOLUME 77.1 fl (80.0-96.0); PLATELET COUNT, AUTOMATED 215 10^3/uL (150-450); RED BLOOD COUNT 4.01 10^6/uL (4.30-6.10); WHITE BLOOD COUNT 6.2 10^3/uL (4.0-10.0)
[2019-02-17 09:00] LABS: INR 1.95; PROTHROMBIN TIME 22.6 SECONDS (12.1-14.4)
[2019-02-17 09:02] LABS: BLOOD UREA NITROGEN 39 MG/DL (7-18); CALCIUM LEVEL 8.5 MG/DL (8.8-10.2); CARBON DIOXIDE LEVEL 28 MEQ/L (21-32); CHLORIDE LEVEL 98 MEQ/L (98-107); CREATININE FOR GFR 1.13 MG/DL (0.70-1.30); GLOMERULAR FILTRATION RATE > 60.0 (>42); GLUCOSE, FASTING 139 MG/DL (70-100); POTASSIUM SERUM 3.8 MEQ/L (3.5-5.1); SODIUM LEVEL 136 MEQ/L (136-145)
== END ==
PROVIDERS: ATTEND Family Medicine
DX: E11.9 Type 2 diabetes mellitus without complications (principal); I10 Essential (primary) hypertension; I48.91 Unspecified atrial fibrillation; Z79.01 Long term (current) use of anticoagulants

== ENCOUNTER → 2019-02-24 | Outpatient (REF) | payer OTHER, MEDICARE ==
[~2019-02-24] MED LIST changes: -FERR325T3 PO; -GLUC100016 PO; -OMEP1CAP73 PO; +OMEP20CA4 PO; +OMEP40CA2 PO; -OMEP40CA97 PO; +SIMV40TA2 PO; -SIMV40TA20 PO; -VITA1TAB23 PO; -VITA250T4 PO; +[UNRECOGNIZED DRUG - CODE] PO
[2019-02-24 09:56] LABS: INR 2.24; PROTHROMBIN TIME 24.6 SECONDS (11.8-14.0)
== END ==
LOC: EEVIPCON
PROVIDERS: ATTEND Internal Medicine
DX: I48.91 Unspecified atrial fibrillation (principal); Z79.01 Long term (current) use of anticoagulants

== ENCOUNTER 2019-03-25 10:03 | Emergency (ER) | payer OTHER, MEDICARE ==
[~2019-03-25 10:03] MED LIST changes: -FERR240T PO; -FLOM0.4C39 PO; -HM V5000 PO
[2019-03-25 11:17] LABS: BASO % 0.6 % (0.0-1.0); EOS % 0.8 % (0.0-3.0); HEMATOCRIT 28.1 % (42.0-52.0); HEMOGLOBIN 8.7 g/dl (13.5-17.5); LYMPH # 0.8 10^3/uL (1.5-4.5); LYMPH % 15.3 % (24.0-44.0); MEAN CORPUSCULAR HEMOGLOBIN 25.5 pg (27.0-33.0); MEAN CORPUSCULAR VOLUME 82.4 fl (80.0-96.0); MONO # 0.6 10^3/uL (0.0-0.8); MONO % 12.2 % (0.0-5.0); NEUTROPHILS # 3.6 10^3/uL (1.8-7.7); NEUTROPHILS % 70.5 % (36.0-66.0); PLATELET COUNT, AUTOMATED 191 10^3/uL (150-450); RED BLOOD COUNT 3.41 10^6/uL (4.30-6.10); WHITE BLOOD COUNT 5.2 10^3/uL (4.0-10.0)
[2019-03-25 11:26] LABS: ALBUMIN 3.3 GM/DL (3.2-5.2); ALT/SGPT 17 U/L (12-78); BILIRUBIN,DIRECT 0.2 MG/DL (0.0-0.2); BILIRUBIN,TOTAL 0.8 MG/DL (0.2-1.0); BLOOD UREA NITROGEN 32 MG/DL (7-18); CALCIUM LEVEL 7.8 MG/DL (8.8-10.2); CARBON DIOXIDE LEVEL 30 MEQ/L (21-32); CHLORIDE LEVEL 101 MEQ/L (98-107); CK-MB VALUE MASS 1.3 NG/ML (<3.6); CPK CREATINE PHOSPHOKINASE 41 U/L (39-308); GLOMERULAR FILTRATION RATE > 60.0 (>42); GLUCOSE, FASTING 103 MG/DL (70-100); LIPASE 83 U/L (73-393); MB/CK RELATIVE INDEX 3.17 (< OR =4); POTASSIUM SERUM 3.9 MEQ/L (3.5-5.1); SODIUM LEVEL 139 MEQ/L (136-145); TOTAL PROTEIN 7.1 GM/DL (6.4-8.2); TROPONIN I < 0.02 NG/ML (< 0.10)
[2019-03-25] MEDS ORDERED: NS 500 ML IV ONE (12:15)
[2019-03-25] MEDS: GASTROGRAFIN SOLUTION 30ML PO SCH ×2 (12:20→12:52)
--- NOTE | 2019-03-25 12:31 | REP ---
CT BRAIN WITHOUT CONTRAST: CT brain performed without IV contrast. There is mild atrophy. There is no midline shift or mass effect. There are minor periventricular small vessel ischemic changes in the white matter. There is no acute intracranial hemorrhage or extra-axial fluid collection. Vascular calcifications are seen in the region of the left vertebral artery and also in the carotid siphons. IMPRESSION: Mild atrophy and periventricular small vessel ischemic changes. No acute intracranial hemorrhage or other acute finding. Electronically Signed by Les Escobar MD 03/28/2019 07:08 P
[2019-03-25] MEDS ORDERED: ISOVUE-370 76% 100ML VIAL (Q9967) As Ordered ONE (12:52)
--- NOTE | 2019-03-25 14:22 | REP ---
CT of the abdomen and pelvis with IV and bowel contrast: Comparison is 07/30/2018. The patient is a history of prostate carcinoma and prostatectomy. Additionally, the patient has history of stage III chronic renal disease. The visualized lung huitron demonstrate a calcified granuloma in the posterior sulcus of the right lung. This is unchanged. There is discoid atelectasis versus parenchymal scar in the left lower lobe, also unchanged. The hepatic parenchyma, gallbladder, pancreas and spleen are normal size, homogeneous and unremarkable. The adrenals are unremarkable. In the right kidney posteriorly at the upper pole on image 57 there is an exophytic solid mass measuring 2.0 cm, unchanged from the prior study. There are small calcifications within this mass, unchanged. At the right renal lower pole. There is an exophytic cyst measuring 2.5 cm, unchanged. There is a 2 mm right renal calculus at the mid pole on image 71. There are multiple calculi within the right kidney as previously. There is no hydronephrosis. The right kidney is otherwise unremarkable. The abdominal aorta is unremarkable except for calcified atheroma. There is no retroperitoneal adenopathy or mass. There is no bowel distension. Mesentery is unremarkable. A small volume of ascites lateral to the liver on the prior study has resolved. Pelvis: There is diverticulosis of the descending colon and sigmoid colon as previously. There is no CT evidence of diverticulitis. The bladder is unremarkable. There are surgical clips in the prostate bed. There is no pelvic adenopathy or ascites. There are no lytic, blastic or destructive skeletal changes. The I suspect there is an hemangioma in the the T11 vertebral body, unchanged. Impression: There is descending colon and sigmoid colon diverticulosis without CT evidence of diverticulitis. This is unchanged. There is a right renal upper pole exophytic 2.0 cm solid mass, similar to the prior study. There is a right renal lower pole cyst, similar to the prior study, unchanged. There is a 2 mm right renal calculus. There are multiple left renal calculi. There is no left hydronephrosis. The previous small volume of ascites lateral to the liver has resolved. Electronically Signed by Les Mccullough MD 03/25/2019 02:14 P
--- NOTE | 2019-03-25 15:14 | REP ---
PA and lateral chest: Comparisons are multiple prior studies dating to 07/30/2018. There is a curvilinear scar inferiorly in the left lung, unchanged. The lung huitron are, otherwise, clear. There are no pleural effusions. Cardiac size is normal. The rock, mediastinum, skeletal structures are unremarkable. Impression: Essentially negative PA and lateral chest. Electronically Signed by Les Mccullough MD 03/25/2019 03:06 P
[2019-03-25 16:02] LABS: FERRITIN 21 NG/ML (26-388); IRON (FE) 21 UG/DL (65-175); PERCENT SATURATION 6.6 % (19.7-50.0); TOTAL IRON BINDING CAPACITY 319 UG/DL (250-450)
[2019-03-25 16:11] LABS: VITAMIN B12 LEVEL 203 PG/ML (247-911)
[2019-03-25 16:12] LABS: FOLATE > 24.0 NG/ML (>5.4)
[2019-03-25 16:58] LABS: INR 2.06
[2019-03-25] MEDS ORDERED: FLOM0.4C39 PO (17:18)
[2019-03-25] MEDS ORDERED: FERR240T PO (17:18)
[2019-03-25] MEDS ORDERED: HM V5000 PO (17:18)
[2019-03-25 17:27] VITALS: BP 117/55
--- NOTE | 2019-03-26 05:36 | ECGEPIP ---
[facility] - ED Test Date: 2019-03-25 Pat Name: CARLY DUNLAP Department: Room: - Gender: Male Family Partner: jonna : 1940 Requested By: MERCEDES Browning PA-C Order Number: [id number] Reading MD: Sarbjit Montgomery Measurements Intervals [place] Rate: 82 P: WI: -1 QRS: QRSD: 110 T: 18 QT: 369 QTc: 433 Interpretive Statements ATRIAL FIBRILLATION WITH ABERRANT CONDUCTION OR VENTRICULAR PREMATURE COMPLEXES INCOMPLETE RIGHT BUNDLE BRANCH BLOCK SIMILAR TO 01/26/19 Electronically Signed on 03-26-2019 5:36:16 EDT by Sarbjit Montgomery
--- NOTE | 2019-03-27 19:47 | ED PDOC ---
Post-Departure Follow-Up dr ornelas faxed formal report of ct abd/p for fu Jenni Calderon MD Mar 27, 2019 19:47
== END 2019-03-25 18:19 | disposition home or self-care (01) ==
LOC: M ED 10:03 → EDBD 10:03 → M ED 18:19
DX: D50.9 Iron deficiency anemia, unspecified (principal); E53.8 Deficiency of other specified B group vitamins; N20.0 Calculus of kidney; K57.90 Diverticulosis of intestine, part unspecified, without perforation or abscess without bleeding; E11.9 Type 2 diabetes mellitus without complications; I12.9 Hypertensive chronic kidney disease with stage 1 through stage 4 chronic kidney disease, or unspecified chronic kidney disease; N18.3 Chronic kidney disease, stage 3 (moderate); J45.909 Unspecified asthma, uncomplicated; J44.9 Chronic obstructive pulmonary disease, unspecified; E78.5 Hyperlipidemia, unspecified; G62.9 Polyneuropathy, unspecified; G47.30 Sleep apnea, unspecified; K76.0 Fatty (change of) liver, not elsewhere classified; K22.70 Barrett's esophagus without dysplasia; Z79.899 Other long term (current) drug therapy; Z79.84 Long term (current) use of oral hypoglycemic drugs; Z79.01 Long term (current) use of anticoagulants; Z88.5 Allergy status to narcotic agent; Z87.891 Personal history of nicotine dependence
CPT/HCPCS: 36415; 70450; 71046; 74177; 80048; 80076; 81001; 82550; 82553; 82607; 82728; 82746; 83550; 83690; 84484; 85025; 85610; 93005; 99284; Q9963; Q9967

== ENCOUNTER → 2019-04-06 | Outpatient (REF) | payer OTHER, MEDICARE ==
[~2019-04-06] MED LIST changes: +FERR240T PO; +FLOM0.4C39 PO; +HM V5000 PO
[2019-04-06 14:31] LABS: APPEARANCE, URINE HAZY (CLEAR); BACTERIA, URINE AUTO 1+ (NEGATIVE); BILIRUBIN, URINE AUTO NEGATIVE (NEGATIVE); BLOOD, URINE BLOOD NEGATIVE (NEGATIVE); COLOR, URINE YELLOW (YELLOW); GLUCOSE, URINE (UA) AUTO NEGATIVE (NEGATIVE); KETONE, URINE AUTO NEGATIVE (NEGATIVE); LEUKOCYTE ESTERASE, URINE AUTO 3+ (NEGATIVE); NITRITE, URINE AUTO NEGATIVE (NEGATIVE); PROTEIN, URINE AUTO NEGATIVE (NEGATIVE); RBC, URINE AUTO 2 /HPF (0-3); SPECIFIC GRAVITY URINE AUTO 1.012 (1.002-1.035); SQUAMOUS EPITHELIAL CELL UR AU 0 /HPF (0-6); UROBILINOGEN, URINE AUTO 0.2 mg/dL (0.0-2.0); WBC, URINE AUTO 127 /HPF (0-3)
== END ==
LOC: M SMT 13:21
PROVIDERS: ATTEND Nurse Practitioner Family
DX: R30.0 Dysuria (principal)
CPT/HCPCS: 81001; 87088; 87186; G0463

== ENCOUNTER → 2019-04-06 | Outpatient (CLI) | payer OTHER, MEDICARE | LOC: M SMT 09:59 | PROVIDERS: ATTEND Nurse Practitioner Family | DX: Z85.46 Personal history of malignant neoplasm of prostate (principal) ==

== ENCOUNTER → 2019-04-07 | Outpatient (REF) | payer OTHER, MEDICARE ==
[2019-04-07 11:40] LABS: INR 2.31; PROTHROMBIN TIME 25.2 SECONDS (11.8-14.0)
== END ==
PROVIDERS: ATTEND Internal Medicine
DX: I48.91 Unspecified atrial fibrillation (principal); Z79.01 Long term (current) use of anticoagulants

== ENCOUNTER → 2019-06-30 | Outpatient (REF) | payer OTHER, MEDICARE ==
[~2019-06-30] MED LIST changes: -OMEP40CA2 PO; +OMEP40CA97 PO
[2019-06-30 10:18] LABS: INR 2.12; PROTHROMBIN TIME 23.5 SECONDS (11.8-14.0)
== END ==
PROVIDERS: ATTEND Internal Medicine
DX: I48.91 Unspecified atrial fibrillation (principal)

== ENCOUNTER → 2019-07-01 | Outpatient (CLI) | payer OTHER, MEDICARE ==
--- NOTE | 2019-07-02 15:35 | REP ---
Clinical: Abnormal lung findings. Technique: Axial noncontrast images from the thoracic inlet to the upper abdomen with coronal and sagittal re-formations. Comparison: 12/21/2015. Findings: Lung huitron demonstrate mild emphysematous changes along with few scattered small calcified granulomata and and 2 cm granuloma in the posterior right lower lobe along with minimal scattered chronic fibroatelectatic changes. No acute consolidation, significant nodule or mass. No pleural effusion. No pneumothorax. Tracheobronchial tree is patent. No obvious adenopathy. Atherosclerotic changes to the thoracic aorta and coronary arteries noted without aortic aneurysm. No cardiomegaly or pericardial effusion. Limited upper abdomen demonstrates normal bilateral adrenal glands. Impression: Chronic pleuroparenchymal changes consistent with prior granulomas disease. No acute mediastinal or pleuroparenchymal process. Electronically Signed by Adiel Santacruz MD 07/02/2019 03:26 P
== END ==
LOC: M RAD 15:01
PROVIDERS: ATTEND Family Medicine
DX: R91.8 Other nonspecific abnormal finding of lung field (principal)

== ENCOUNTER → 2019-07-28 | Outpatient (REF) | payer OTHER, MEDICARE ==
[~2019-07-28] MED LIST changes: +FERR325T3 PO; +VITA1TAB23 PO; +VITA250T4 PO
[2019-07-28 09:23] LABS: INR 2.08; PROTHROMBIN TIME 23.2 SECONDS (11.8-14.0)
== END ==
PROVIDERS: ATTEND Internal Medicine
DX: I48.91 Unspecified atrial fibrillation (principal)

== ENCOUNTER → 2019-09-10 | Outpatient (REF) | payer MEDICARE ==
[~2019-09-10] MED LIST changes: +OMEP-172 PO; -OMEP20CA4 PO; -SIMV40TA2 PO; +SIMV40TA20 PO
[2019-09-10 14:58] LABS: BLOOD UREA NITROGEN 21 MG/DL (7-18); CALCIUM LEVEL 8.2 MG/DL (8.8-10.2); CARBON DIOXIDE LEVEL 30 MEQ/L (21-32); CHLORIDE LEVEL 101 MEQ/L (98-107); GLOMERULAR FILTRATION RATE > 60.0 (>42); GLUCOSE, FASTING 147 MG/DL (70-100); POTASSIUM SERUM 4.4 MEQ/L (3.5-5.1); SODIUM LEVEL 139 MEQ/L (136-145)
== END ==
PROVIDERS: ATTEND Nurse Practitioner Family
DX: N28.89 Other specified disorders of kidney and ureter (principal)

== ENCOUNTER → 2019-09-14 | Outpatient (CLI) | payer MEDICARE ==
[~2019-09-14] MED LIST changes: +ISOVUE-370 76% 100ML VIAL (Q9967) As Ordered ONE
--- NOTE | 2019-09-14 12:36 | REP ---
CT ABDOMEN AND PELVIS WITH AND WITHOUT IV CONTRAST: COMPARISON: 03/25/2019. CT abdomen and pelvis performed prior to and following the intravenous administration of 100 mL of Isovue 370. Sagittal and coronal reconstruction images are performed. In the visualized lung bases there are mild fibroatelectatic changes with a large calcified granuloma in the right lower lobe. In the left kidney lower pole collecting system there are two adjacent intrarenal calculi both measuring 10.0 mm in maximum diameter. The liver demonstrates two subcentimeter hypodensities, one in the left lobe and one in the caudate lobe probably representing tiny cysts. These are present on multiple prior exams. Spleen is normal in size. Subcentimeter cyst or hemangioma is seen in the very inferior aspect of the spleen. The adrenal glands are normal. Pancreas demonstrates no mass. There is a solid mass with multiple tiny calcifications in the upper pole of the right kidney which appears unchanged compared back to prior CT 12/21/2015 at [facility] in [place]. This measures about 2.4 x 1.8 cm. A cyst in the right lower pole measures 2.7 cm. No other renal mass is seen. Ureters are unremarkable. Urinary bladder is mildly distended and grossly unremarkable. There is moderate atherosclerotic calcification of the abdominal aorta without aneurysm. There is no adenopathy. There is no free air or free fluid. No bowel wall thickening is seen. The appendix is normal. There is sigmoid and left colonic diverticulosis without acute diverticulitis. No pelvic mass is seen. There is a small right inguinal hernia containing fat. IMPRESSION: Subcentimeter hypodensity in the left lobe of the liver and another in the caudate probably represent tiny cysts. These are seen on prior CT exams. There also appears to be a tiny cyst or hemangioma in the inferior spleen. Solid mass in the upper pole of the right kidney contains multiple tiny calcifications and appears unchanged since 2016 CT as discussed above. There are two intrarenal calculi in the lower pole of the left kidney both having a maximum diameter of 1 cm. There is no hydroureteronephrosis. There is no adenopathy, free air or free fluid. Sigmoid and left colonic diverticulosis without acute diverticulitis. Electronically Signed by Les Escobar MD 09/14/2019 12:52 P
== END ==
LOC: M RAD 11:02
PROVIDERS: ATTEND Nurse Practitioner Family
DX: N20.0 Calculus of kidney (principal); N28.89 Other specified disorders of kidney and ureter; Z85.46 Personal history of malignant neoplasm of prostate
CPT/HCPCS: 74178; Q9967

== ENCOUNTER → 2019-10-07 | Outpatient (REF) | payer MEDICARE ==
[~2019-10-07] MED LIST changes: +GLUC100016 PO; -ISOVUE-370 76% 100ML VIAL (Q9967) As Ordered ONE; -OMEP-172 PO; +OMEP1CAP73 PO; -[UNRECOGNIZED DRUG - CODE] PO
== END ==
PROVIDERS: ATTEND Nurse Practitioner Family
DX: R30.0 Dysuria (principal)

== ENCOUNTER → 2019-10-07 | Outpatient (REF) | payer MEDICARE ==
[2019-10-07 12:43] LABS: ALBUMIN 3.5 GM/DL (3.2-5.2); BILIRUBIN,TOTAL 1.3 MG/DL (0.2-1.0); CALCIUM LEVEL 8.2 MG/DL (8.8-10.2); CREATININE FOR GFR 1.3 MG/DL (0.70-1.30); POTASSIUM SERUM 4.4 MEQ/L (3.5-5.1); TOTAL PROTEIN 7.1 GM/DL (6.4-8.2)
== END ==
PROVIDERS: ATTEND Nurse Practitioner Family
DX: N28.89 Other specified disorders of kidney and ureter (principal)

== ENCOUNTER → 2019-10-08 | Outpatient (REF) | payer MEDICARE ==
[2019-10-08 16:03] LABS: APPEARANCE, URINE CLEAR (CLEAR); BACTERIA, URINE AUTO NEGATIVE (NEGATIVE); BILIRUBIN, URINE AUTO NEGATIVE (NEGATIVE); BLOOD, URINE BLOOD NEGATIVE (NEGATIVE); COLOR, URINE STRAW (YELLOW); GLUCOSE, URINE (UA) AUTO NEGATIVE (NEGATIVE); KETONE, URINE AUTO NEGATIVE (NEGATIVE); LEUKOCYTE ESTERASE, URINE AUTO NEGATIVE (NEGATIVE); NITRITE, URINE AUTO NEGATIVE (NEGATIVE); PROTEIN, URINE AUTO NEGATIVE (NEGATIVE); RBC, URINE AUTO 1 /HPF (0-3); SPECIFIC GRAVITY URINE AUTO 1.006 (1.002-1.035); SQUAMOUS EPITHELIAL CELL UR AU 1 /HPF (0-6); UROBILINOGEN, URINE AUTO 0.2 mg/dL (0.0-2.0); WBC, URINE AUTO 1 /HPF (0-3)
== END ==
PROVIDERS: ATTEND Nurse Practitioner Family
DX: R30.0 Dysuria (principal)

== ENCOUNTER → 2019-10-13 | Outpatient (REF) | payer MEDICARE ==
[2019-10-13 09:54] LABS: BASO % 0.4 % (0.0-1.0); EOS # 0.1 10^3/uL (0.0-0.5); EOS % 1.4 % (0.0-3.0); HEMATOCRIT 34.9 % (42.0-52.0); HEMOGLOBIN 10.9 g/dl (13.5-17.5); LYMPH # 1.1 10^3/uL (1.5-5.0); LYMPH % 19.6 % (24.0-44.0); MEAN CORPUSCULAR HEMOGLOBIN 27.5 pg (27.0-33.0); MEAN CORPUSCULAR HGB CONC 31.2 g/dl (32.0-36.5); MEAN CORPUSCULAR VOLUME 88.1 fl (80.0-96.0); MONO # 0.6 10^3/uL (0.0-0.8); NEUTROPHILS # 3.8 10^3/uL (1.5-8.5); NEUTROPHILS % 67.7 % (36.0-66.0); PLATELET COUNT, AUTOMATED 145 10^3/uL (150-450); RED BLOOD COUNT 3.96 10^6/uL (4.30-6.10); WHITE BLOOD COUNT 5.6 10^3/uL (4.0-10.0)
[2019-10-13 10:16] LABS: PERCENT SATURATION 12.9 % (19.7-50.0)
== END ==
PROVIDERS: ATTEND Internal Medicine Hematology
DX: D64.9 Anemia, unspecified (principal); Z85.46 Personal history of malignant neoplasm of prostate

== ENCOUNTER → 2020-01-20 | Outpatient (REF) | payer OTHER ==
[~2020-01-20] MED LIST changes: +ATOR40TA75 PO; +ELIQ5TAB PO; -MONT10TA2 PO; +MONT10TA4 PO
[2020-01-20 09:03] LABS: BASO % 0.4 % (0.0-1.0); EOS # 0.1 10^3/uL (0.0-0.5); EOS % 1.5 % (0.0-3.0); HEMATOCRIT 34.9 % (42.0-52.0); HEMOGLOBIN 11.6 g/dl (13.5-17.5); LYMPH # 0.9 10^3/uL (1.5-5.0); LYMPH % 16.5 % (24.0-44.0); MEAN CORPUSCULAR HEMOGLOBIN 29.8 pg (27.0-33.0); MEAN CORPUSCULAR HGB CONC 33.2 g/dl (32.0-36.5); MEAN CORPUSCULAR VOLUME 89.7 fl (80.0-96.0); MONO # 0.5 10^3/uL (0.0-0.8); MONO % 9.9 % (0.0-5.0); NEUTROPHILS # 3.9 10^3/uL (1.5-8.5); PLATELET COUNT, AUTOMATED 150 10^3/uL (150-450); RED BLOOD COUNT 3.89 10^6/uL (4.30-6.10); WHITE BLOOD COUNT 5.5 10^3/uL (4.0-10.0)
[2020-01-20 09:37] LABS: PERCENT SATURATION 21.7 % (19.7-50.0)
== END ==
PROVIDERS: ATTEND Internal Medicine Hematology
DX: C61 Malignant neoplasm of prostate (principal); D50.9 Iron deficiency anemia, unspecified

== ENCOUNTER → 2020-06-12 | Outpatient (REF) | payer OTHER ==
[~2020-06-12] MED LIST changes: -AMLO10TA5 PO; +AMLO1TAB25 PO; +ASCO250T20 PO; -COUM1TAB14 PO; +COUM4TAB8 PO; -VITA1TAB23 PO
[2020-06-12 09:00] LABS: BASO % 0.3 % (0.0-1.0); EOS # 0.1 10^3/uL (0.0-0.5); EOS % 1.1 % (0.0-3.0); HEMATOCRIT 33.3 % (42.0-52.0); HEMOGLOBIN 10.3 g/dl (13.5-17.5); LYMPH # 0.9 10^3/uL (1.5-5.0); MEAN CORPUSCULAR HEMOGLOBIN 26.7 pg (27.0-33.0); MEAN CORPUSCULAR HGB CONC 30.9 g/dl (32.0-36.5); MEAN CORPUSCULAR VOLUME 86.3 fl (80.0-96.0); MONO # 0.6 10^3/uL (0.0-0.8); MONO % 8.9 % (0.0-5.0); NEUTROPHILS # 4.7 10^3/uL (1.5-8.5); NEUTROPHILS % 75.1 % (36.0-66.0); PLATELET COUNT, AUTOMATED 168 10^3/uL (150-450); RED BLOOD COUNT 3.86 10^6/uL (4.30-6.10); WHITE BLOOD COUNT 6.2 10^3/uL (4.0-10.0)
[2020-06-12 09:25] LABS: PERCENT SATURATION 11.3 % (19.7-50.0)
== END ==
PROVIDERS: ATTEND Family Medicine
DX: D64.9 Anemia, unspecified (principal)

== ENCOUNTER → 2020-07-24 | Outpatient (REF) | payer OTHER ==
[~2020-07-24] MED LIST changes: +HYDR-3490 PO; -HYDR25TAB PO; -LISI-538 PO; +LISI10TA22 PO; -LISI10TA4 PO; +LISI20TA33 PO; +MONT10TA10 PO; -MONT10TA4 PO; +MULT-90 PO
[2020-07-24 10:16] LABS: BASO % 0.3 % (0.0-1.0); EOS # 0.1 10^3/uL (0.0-0.5); EOS % 1.4 % (0.0-3.0); HEMATOCRIT 33.9 % (42.0-52.0); HEMOGLOBIN 10.6 g/dl (13.5-17.5); LYMPH % 14.7 % (24.0-44.0); MEAN CORPUSCULAR HEMOGLOBIN 26.5 pg (27.0-33.0); MEAN CORPUSCULAR HGB CONC 31.3 g/dl (32.0-36.5); MEAN CORPUSCULAR VOLUME 84.8 fl (80.0-96.0); MONO # 0.6 10^3/uL (0.0-0.8); MONO % 8.8 % (0.0-5.0); NEUTROPHILS # 4.8 10^3/uL (1.5-8.5); PLATELET COUNT, AUTOMATED 152 10^3/uL (150-450); WHITE BLOOD COUNT 6.5 10^3/uL (4.0-10.0)
[2020-07-24 10:55] LABS: ALBUMIN 3.4 GM/DL (3.2-5.2); ALT/SGPT 18 U/L (12-78); BILIRUBIN,TOTAL 1.4 MG/DL (0.2-1.0); BLOOD UREA NITROGEN 21 MG/DL (7-18); CALCIUM LEVEL 7.4 MG/DL (8.8-10.2); CARBON DIOXIDE LEVEL 30 MEQ/L (21-32); CHLORIDE LEVEL 101 MEQ/L (98-107); CHOLESTEROL LEVEL 87 MG/DL (<200); CHOLESTEROL RISK RATIO 2.485 (<5); CREATININE FOR GFR 1.13 MG/DL (0.70-1.30); GLOMERULAR FILTRATION RATE > 60.0 (>42); GLUCOSE, FASTING 204 MG/DL (70-100); HDL CHOLESTEROL 35 MG/DL (>40); LDL CHOLESTEROL 30 MG/DL (<100); NON-HDL-C 52 MG/DL; SODIUM LEVEL 137 MEQ/L (136-145); TOTAL PROTEIN 6.7 GM/DL (6.4-8.2); TRIGLYCERIDES LEVEL 108 MG/DL (<150)
[2020-07-24 11:06] LABS: HEMOGLOBIN A1c 6.9 %
== END ==
PROVIDERS: ATTEND Family Medicine
DX: N18.9 Chronic kidney disease, unspecified (principal); D64.9 Anemia, unspecified; R73.09 Other abnormal glucose; R94.6 Abnormal results of thyroid function studies

== ENCOUNTER → 2020-08-10 | Outpatient (REF) | payer OTHER ==
[~2020-08-10] MED LIST changes: -HYDR-3490 PO; +HYDR25TAB PO; +LISI-538 PO; -LISI10TA22 PO; +LISI10TA4 PO; -LISI20TA33 PO; -MONT10TA10 PO; +MONT5TAB2 PO
[2020-08-10 09:06] LABS: BASO % 0.3 % (0.0-1.0); EOS # 0.1 10^3/uL (0.0-0.5); EOS % 1.2 % (0.0-3.0); HEMOGLOBIN 10.9 g/dl (13.5-17.5); MEAN CORPUSCULAR HEMOGLOBIN 26.2 pg (27.0-33.0); MEAN CORPUSCULAR HGB CONC 31.1 g/dl (32.0-36.5); MEAN CORPUSCULAR VOLUME 84.1 fl (80.0-96.0); MONO # 0.5 10^3/uL (0.0-0.8); MONO % 8.3 % (0.0-5.0); NEUTROPHILS # 4.3 10^3/uL (1.5-8.5); NEUTROPHILS % 73.4 % (36.0-66.0); PLATELET COUNT, AUTOMATED 162 10^3/uL (150-450); RED BLOOD COUNT 4.16 10^6/uL (4.30-6.10); WHITE BLOOD COUNT 5.9 10^3/uL (4.0-10.0)
[2020-08-10 09:26] LABS: HEMOGLOBIN A1c 6.7 %
[2020-08-10 09:53] LABS: ALBUMIN 3.2 GM/DL (3.2-5.2); ALT/SGPT 17 U/L (12-78); BILIRUBIN,TOTAL 1.4 MG/DL (0.2-1.0); BLOOD UREA NITROGEN 20 MG/DL (7-18); CALCIUM LEVEL 7.2 MG/DL (8.8-10.2); CARBON DIOXIDE LEVEL 28 MEQ/L (21-32); CHLORIDE LEVEL 100 MEQ/L (98-107); CHOLESTEROL LEVEL 92 MG/DL (<200); CHOLESTEROL RISK RATIO 2.555 (<5); CREATININE FOR GFR 1.21 MG/DL (0.70-1.30); GLOMERULAR FILTRATION RATE > 60.0 (>42); GLUCOSE, FASTING 147 MG/DL (70-100); HDL CHOLESTEROL 36 MG/DL (>40); LDL CHOLESTEROL 34 MG/DL (<100); NON-HDL-C 56 MG/DL; POTASSIUM SERUM 3.8 MEQ/L (3.5-5.1); SODIUM LEVEL 136 MEQ/L (136-145); TOTAL PROTEIN 6.9 GM/DL (6.4-8.2); TRIGLYCERIDES LEVEL 110 MG/DL (<150)
== END ==
PROVIDERS: ATTEND Internal Medicine
DX: Z79.899 Other long term (current) drug therapy (principal)

== ENCOUNTER → 2020-08-18 | Outpatient (REF) | payer OTHER ==
[~2020-08-18] MED LIST changes: -MULT-90 PO
== END ==
PROVIDERS: ATTEND Internal Medicine
DX: Z20.828 Contact with and (suspected) exposure to other viral communicable diseases (principal)

== ENCOUNTER → 2020-08-21 | Outpatient (REF) | payer OTHER | PROVIDERS: ATTEND Family Medicine | DX: Z20.828 Contact with and (suspected) exposure to other viral communicable diseases (principal) ==

== ENCOUNTER → 2020-08-23 | Outpatient (REF) | payer OTHER ==
[~2020-08-23] MED LIST changes: +MULT-90 PO
== END ==
PROVIDERS: ATTEND Internal Medicine
DX: Z20.828 Contact with and (suspected) exposure to other viral communicable diseases (principal)

== ENCOUNTER → 2020-08-25 | Outpatient (REF) | payer OTHER ==
[2020-08-25 15:11] LABS: PERCENT SATURATION 17.7 % (19.7-50.0)
== END ==
PROVIDERS: ATTEND Internal Medicine Hematology
DX: E61.1 Iron deficiency (principal)

== ENCOUNTER → 2020-08-28 | Outpatient (REF) | payer OTHER | PROVIDERS: ATTEND Internal Medicine | DX: Z20.828 Contact with and (suspected) exposure to other viral communicable diseases (principal) ==

== ENCOUNTER → 2020-09-04 | Outpatient (REF) | payer OTHER | PROVIDERS: ATTEND Internal Medicine | DX: Z20.828 Contact with and (suspected) exposure to other viral communicable diseases (principal) ==

== ENCOUNTER → 2020-09-11 | Outpatient (REF) | payer OTHER | PROVIDERS: ATTEND Internal Medicine | DX: Z11.52 Encounter for screening for COVID-19 (principal) ==

== ENCOUNTER → 2020-09-13 | Outpatient (REF) | payer OTHER ==
[~2020-09-13] MED LIST changes: +HYDR-3490 PO; -HYDR25TAB PO; -LISI-538 PO; +LISI10TA22 PO; -LISI10TA4 PO; +LISI20TA33 PO; +MONT10TA10 PO; -MONT5TAB2 PO
[2020-09-13 09:57] LABS: BASO % 0.5 % (0.0-1.0); EOS # 0.1 10^3/uL (0.0-0.5); EOS % 1.5 % (0.0-3.0); HEMATOCRIT 33.2 % (42.0-52.0); HEMOGLOBIN 10.5 g/dl (13.5-17.5); LYMPH # 0.9 10^3/uL (1.5-5.0); LYMPH % 14.3 % (24.0-44.0); MEAN CORPUSCULAR HEMOGLOBIN 27.4 pg (27.0-33.0); MEAN CORPUSCULAR HGB CONC 31.6 g/dl (32.0-36.5); MEAN CORPUSCULAR VOLUME 86.7 fl (80.0-96.0); MONO # 0.5 10^3/uL (0.0-0.8); MONO % 8.2 % (0.0-5.0); NEUTROPHILS # 4.5 10^3/uL (1.5-8.5); NEUTROPHILS % 74.5 % (36.0-66.0); PLATELET COUNT, AUTOMATED 165 10^3/uL (150-450); RED BLOOD COUNT 3.83 10^6/uL (4.30-6.10); WHITE BLOOD COUNT 6.1 10^3/uL (4.0-10.0)
[2020-09-13 10:09] LABS: HEMOGLOBIN A1c 6.7 %
[2020-09-13 10:42] LABS: ALT/SGPT 20 U/L (12-78); BILIRUBIN,TOTAL 1.1 MG/DL (0.2-1.0); BLOOD UREA NITROGEN 17 MG/DL (7-18); CALCIUM LEVEL 7.2 MG/DL (8.8-10.2); CARBON DIOXIDE LEVEL 30 MEQ/L (21-32); CHLORIDE LEVEL 100 MEQ/L (98-107); CHOLESTEROL LEVEL 84 MG/DL (<200); CHOLESTEROL RISK RATIO 2.545 (<5); CREATININE FOR GFR 1.07 MG/DL (0.70-1.30); GLOMERULAR FILTRATION RATE > 60.0 (>42); GLUCOSE, FASTING 234 MG/DL (70-100); HDL CHOLESTEROL 33 MG/DL (>40); LDL CHOLESTEROL 27 MG/DL (<100); NON-HDL-C 51 MG/DL; POTASSIUM SERUM 3.9 MEQ/L (3.5-5.1); SODIUM LEVEL 136 MEQ/L (136-145); TOTAL PROTEIN 6.4 GM/DL (6.4-8.2); TRIGLYCERIDES LEVEL 121 MG/DL (<150)
== END ==
PROVIDERS: ATTEND Family Medicine
DX: N18.9 Chronic kidney disease, unspecified (principal); D64.9 Anemia, unspecified; R73.09 Other abnormal glucose; R94.6 Abnormal results of thyroid function studies

== ENCOUNTER → 2020-09-18 | Outpatient (REF) | payer OTHER ==
[~2020-09-18] MED LIST changes: -HYDR-3490 PO; +HYDR25TAB PO; +LISI-538 PO; -LISI10TA22 PO; +LISI10TA4 PO; -LISI20TA33 PO; -MONT10TA10 PO; +MONT5TAB2 PO
== END ==
PROVIDERS: ATTEND Internal Medicine
DX: Z20.822 Contact with and (suspected) exposure to COVID-19 (principal)

== ENCOUNTER → 2020-09-25 | Outpatient (REF) | payer OTHER | PROVIDERS: ATTEND Internal Medicine | DX: Z20.822 Contact with and (suspected) exposure to COVID-19 (principal) ==

== ENCOUNTER → 2020-10-02 | Outpatient (REF) | payer OTHER | PROVIDERS: ATTEND Internal Medicine | DX: Z20.822 Contact with and (suspected) exposure to COVID-19 (principal) ==

== ENCOUNTER → 2020-10-09 | Outpatient (REF) | payer OTHER | PROVIDERS: ATTEND Internal Medicine | DX: Z11.52 Encounter for screening for COVID-19 (principal) ==

== ENCOUNTER → 2020-10-16 | Outpatient (REF) | payer OTHER ==
[~2020-10-16] MED LIST changes: +HYDR-3490 PO; -HYDR25TAB PO; -LISI-538 PO; +LISI10TA22 PO; -LISI10TA4 PO; +LISI20TA33 PO; +MONT10TA10 PO; -MONT5TAB2 PO
== END ==
PROVIDERS: ATTEND Internal Medicine
DX: Z20.822 Contact with and (suspected) exposure to COVID-19 (principal)

== ENCOUNTER → 2020-10-23 | Outpatient (REF) | payer OTHER | PROVIDERS: ATTEND Internal Medicine | DX: Z20.822 Contact with and (suspected) exposure to COVID-19 (principal) ==

== ENCOUNTER → 2020-10-23 | Outpatient (REF) | payer MEDICARE, OTHER | PROVIDERS: ATTEND Urology | DX: C61 Malignant neoplasm of prostate (principal) | CPT/HCPCS: 36415; G0103; U0003 ==

== ENCOUNTER → 2020-11-06 | Outpatient (CLI) | payer MEDICAID, MEDICARE ==
--- NOTE | 2020-11-06 14:08 | REP ---
INDICATION: KIDNEY MASS, STONE. COMPARISON: CT 09/14/2019. TECHNIQUE: Real-time sonographic evaluation of the kidneys is performed. FINDINGS: Renal cortical echogenicity pattern is normal bilaterally and contours are smooth. There is no hydronephrosis bilaterally. There is a cyst in the lower pole the right kidney 1.8 cm in diameter. The upper pole the right kidney there is a solid mass which measures approximately 3.5 x 2.3 x 2.4 cm. On the prior CT scan the measurements were 2.4 x 1.8 cm. Therefore the mass may have increased in size since the prior exam. A calculus in the lower pole of the left renal collecting system measures 1.3 cm in diameter. The right kidney measures 12.1 x 6.0 x 4.7 cm. Left renal dimensions are 12.0 x 5.2 x 6.1 cm. The urinary bladder is unremarkable. Ureteral jets could not be seen in the urinary bladder with Doppler color evaluation. IMPRESSION: Solid mass upper pole right kidney is measuring larger than the prior study of 09/14/2019. The increase in size is suspicious for renal cell carcinoma. <Electronically signed by Les Escobar > 11/06/20 [id number]
== END ==
LOC: M RAD 12:45
PROVIDERS: ATTEND Nurse Practitioner Family
DX: N28.89 Other specified disorders of kidney and ureter (principal); N20.0 Calculus of kidney

== ENCOUNTER → 2020-11-23 | Outpatient (REF) | payer MEDICARE, MEDICAID, OTHER ==
[2020-11-23 09:12] LABS: BLOOD UREA NITROGEN 24 MG/DL (7-18); CALCIUM LEVEL 6.8 MG/DL (8.8-10.2); CARBON DIOXIDE LEVEL 29 MEQ/L (21-32); CHLORIDE LEVEL 101 MEQ/L (98-107); CREATININE FOR GFR 1.09 MG/DL (0.70-1.30); GLOMERULAR FILTRATION RATE > 60.0 (>42); GLUCOSE, FASTING 155 MG/DL (70-100); POTASSIUM SERUM 4.1 MEQ/L (3.5-5.1); SODIUM LEVEL 137 MEQ/L (136-145)
== END ==
PROVIDERS: ATTEND Nurse Practitioner Family
DX: N28.89 Other specified disorders of kidney and ureter (principal)

== ENCOUNTER → 2020-12-01 | Outpatient (CLI) | payer MEDICARE ==
[~2020-12-01] MED LIST changes: +ISOVUE-370 76% 100ML VIAL As Ordered ONE
--- NOTE | 2020-12-01 18:31 | REP ---
INDICATION: KIDNEY MASS, KIDNEY STONES. Patient gives a history of prostate carcinoma. Kidney stones. COMPARISON: Comparison is made with prior CT studies dating back to November 17, 2014.. TECHNIQUE: Pre and post contrast CT study is acquired with dual phase post-contrast imaging. 100 mL of intravenous Isovue 370 is administered. . FINDINGS: Digital preliminary circular distributor radiograph is noncontributory. There is a large granulomatous calcification in the right lower lobe of the lung. Mild linear fibrosis is seen in the left lower lobe. The lung bases are otherwise clear. There is no evidence of pleural effusion or upper abdominal ascites. Normal adrenal glands are seen bilaterally. The liver and the spleen remain normal in size and homogeneous in texture on pre and postcontrast images. There is intrarenal nephrolithiasis in the left kidney with 2 fairly large calculi in the lower pole collecting system these measure 11 and 10 mm in greatest diameter respectively. There is a 3 mm calculus at mid pole level on the left. No intrarenal calculi are seen on the right. No hydronephrosis seen. The kidneys enhance symmetrically. There is a lower pole peripheral cyst on the right measuring 2.7 cm in greatest diameter. This is unchanged. It is somewhat larger than on the 2015 study but is simple cyst by CT criteria. However, there is a 2.2 cm stable peripheral mass in the upper pole the right kidney projecting posteriorly and containing punctate calcifications. This is felt to be unchanged from multiple prior studies. Delayed acquisition demonstrates tiny subcentimeter cortical cysts in the left kidney. No retroperitoneal mass or adenopathy is seen. No enhancing bladder mass lesion is observed. There is left colonic diverticulosis without CT evidence of diverticulitis. The prostate is surgically absent with surgical clips in the pelvis. No pelvic adenopathy is seen. Bone window settings show no bony destructive lesion. IMPRESSION: Stable solid 2.2 cm mass upper pole right kidney unchanged from multiple prior studies. Small renal cysts. Intrarenal nephrolithiasis again noted on the left without hydronephrosis. Status post prostatectomy. Left colonic diverticulosis. <Electronically signed by Conor Hernandez > 12/01/20 [id number]
== END ==
LOC: M RAD 17:11
PROVIDERS: ATTEND Nurse Practitioner Family
DX: N28.89 Other specified disorders of kidney and ureter (principal); N20.0 Calculus of kidney; Z85.46 Personal history of malignant neoplasm of prostate; N28.1 Cyst of kidney, acquired; Z90.79 Acquired absence of other genital organ(s); K57.30 Diverticulosis of large intestine without perforation or abscess without bleeding
CPT/HCPCS: 74178; Q9967

== ENCOUNTER → 2020-12-20 | Outpatient (REF) | payer MEDICARE, MEDICAID, OTHER ==
[~2020-12-20] MED LIST changes: -ISOVUE-370 76% 100ML VIAL As Ordered ONE
[2020-12-20 10:56] LABS: BASO % 0.3 % (0.0-1.0); EOS % 0.6 % (0.0-3.0); HEMATOCRIT 29.6 % (42.0-52.0); LYMPH # 0.7 10^3/uL (1.5-5.0); LYMPH % 9.3 % (24.0-44.0); MEAN CORPUSCULAR HEMOGLOBIN 26.9 pg (27.0-33.0); MEAN CORPUSCULAR HGB CONC 30.4 g/dl (32.0-36.5); MEAN CORPUSCULAR VOLUME 88.4 fl (80.0-96.0); MONO # 0.8 10^3/uL (0.0-0.8); MONO % 10.7 % (2.0-8.0); NEUTROPHILS # 5.5 10^3/uL (1.5-8.5); NEUTROPHILS % 78.1 % (36.0-66.0); PLATELET COUNT, AUTOMATED 221 10^3/uL (150-450); RED BLOOD COUNT 3.35 10^6/uL (4.30-6.10)
[2020-12-20 11:29] LABS: ALBUMIN 2.6 GM/DL (3.2-5.2); ALT/SGPT 16 U/L (12-78); BILIRUBIN,TOTAL 0.7 MG/DL (0.2-1.0); BLOOD UREA NITROGEN 17 MG/DL (7-18); CARBON DIOXIDE LEVEL 29 MEQ/L (21-32); CHLORIDE LEVEL 101 MEQ/L (98-107); CREATININE FOR GFR 0.99 MG/DL (0.70-1.30); FERRITIN 131 NG/ML (26-388); GLOMERULAR FILTRATION RATE > 60.0 (>42); GLUCOSE, FASTING 171 MG/DL (70-100); IRON (FE) 23 UG/DL (65-175); PERCENT SATURATION 10.3 % (19.7-50.0); POTASSIUM SERUM 3.8 MEQ/L (3.5-5.1); SODIUM LEVEL 138 MEQ/L (136-145); TOTAL IRON BINDING CAPACITY 223 UG/DL (250-450)
== END ==
PROVIDERS: ATTEND Specialist
DX: D50.9 Iron deficiency anemia, unspecified (principal)

== ENCOUNTER → 2021-03-20 | Outpatient (REF) | payer OTHER ==
[~2021-03-20] MED LIST changes: -KLOR10TA76 PO; -MONT10TA10 PO; +MONT10TA97 PO; +NEUR300C PO; +OMEP-173 PO; -OMEP-218 PO; +OMEP40CA4 PO; -OMEP40CA97 PO; +POTA-136 PO
== END ==
PROVIDERS: ATTEND Family Medicine
DX: Z53.8 Procedure and treatment not carried out for other reasons (principal)

== ENCOUNTER → 2021-04-19 | Outpatient (CLI) | payer OTHER, MEDICARE, MEDICAID ==
[~2021-04-19] MED LIST changes: +KLOR10TA76 PO; +MONT10TA10 PO; -MONT10TA97 PO; -OMEP-173 PO; +OMEP-218 PO; -POTA-136 PO
[2021-04-19 13:49] LABS: ALBUMIN 3.6 GM/DL (3.2-5.2); BILIRUBIN,TOTAL 1.3 MG/DL (0.2-1.0); CALCIUM LEVEL 7.3 MG/DL (8.8-10.2); CREATININE FOR GFR 1.28 MG/DL (0.70-1.30); GLOMERULAR FILTRATION RATE 57.9 (>42); POTASSIUM SERUM 4.2 MEQ/L (3.5-5.1); TOTAL PROTEIN 7.1 GM/DL (6.4-8.2)
== END ==
LOC: M PLALAB 09:56
PROVIDERS: ATTEND Student in an Organized Health Care Education/Training Program
DX: E83.51 Hypocalcemia (principal)

== ENCOUNTER → 2021-06-04 | Outpatient (REF) | payer OTHER, MEDICARE, MEDICAID ==
[~2021-06-04] MED LIST changes: -KLOR10TA76 PO; +POTA-136 PO
[2021-06-04 10:54] LABS: CALCIUM LEVEL 7.5 MG/DL (8.8-10.2); PHOSPHORUS LEVEL 2.7 MG/DL (2.5-4.9)
[2021-06-04 11:42] LABS: MAGNESIUM LEVEL 0.9 MG/DL (1.8-2.4)
[2021-06-04 12:15] LABS: PTH INTACT 44.3 PG/ML (18.5-88.0); TOTAL 25(OH) VITAMIN D 35.3 NG/ML (30.0-100.0)
== END ==
PROVIDERS: ATTEND Student in an Organized Health Care Education/Training Program
DX: E83.51 Hypocalcemia (principal)

== ENCOUNTER → 2021-06-13 | Outpatient (REF) | payer OTHER, MEDICARE, MEDICAID ==
[2021-06-13 12:39] LABS: BLOOD UREA NITROGEN 11 MG/DL (7-18); CALCIUM LEVEL 8.2 MG/DL (8.8-10.2); CARBON DIOXIDE LEVEL 25 MEQ/L (21-32); CHLORIDE LEVEL 108 MEQ/L (98-107); CREATININE FOR GFR 1.21 MG/DL (0.70-1.30); GLOMERULAR FILTRATION RATE > 60.0 (>42); GLUCOSE, FASTING 168 MG/DL (70-100); NT-PRO BNP 1613 PG/ML (<450); POTASSIUM SERUM 4.5 MEQ/L (3.5-5.1); SODIUM LEVEL 141 MEQ/L (136-145)
== END ==
PROVIDERS: ATTEND Physician Assistant
DX: I11.0 Hypertensive heart disease with heart failure (principal)

== ENCOUNTER → 2021-06-15 | Outpatient (CLI) | payer MEDICARE, MEDICAID, OTHER ==
--- NOTE | 2021-06-15 10:43 | REP ---
INDICATION: HYPERTENSIVE HEART DISEASE WITH HEART FAILURE. COMPARISON: 03/25/2019 TECHNIQUE: PA and lateral FINDINGS: The cardiomediastinal silhouette is unchanged. The heart is not enlarged. There are basilar fibrotic changes status quo. The pleural angles are sharp. There is an incidental calcified granuloma in the right lower lobe. There is no significant change in the osseous structures. IMPRESSION: There is no acute cardiopulmonary disease. <Electronically signed by Christopher Esteves > 06/15/21 [id number]
== END ==
LOC: M RAD 10:18
PROVIDERS: ATTEND Family Medicine
DX: I11.0 Hypertensive heart disease with heart failure (principal); J98.4 Other disorders of lung; I50.9 Heart failure, unspecified

== ENCOUNTER → 2021-07-30 | Outpatient (REF) | payer MEDICARE, MEDICAID, OTHER ==
[2021-07-30 11:22] LABS: BLOOD UREA NITROGEN 13 MG/DL (7-18); CALCIUM LEVEL 8.7 MG/DL (8.8-10.2); CARBON DIOXIDE LEVEL 27 MEQ/L (21-32); CHLORIDE LEVEL 106 MEQ/L (98-107); CREATININE FOR GFR 1.08 MG/DL (0.70-1.30); GLOMERULAR FILTRATION RATE > 60.0 (>42); GLUCOSE, FASTING 155 MG/DL (70-100); MAGNESIUM LEVEL 1.2 MG/DL (1.8-2.4); POTASSIUM SERUM 4.5 MEQ/L (3.5-5.1); SODIUM LEVEL 141 MEQ/L (136-145)
[2021-07-31 23:07] LABS: PSA TOTAL <0.1 ng/mL (0.0-4.0)
== END ==
PROVIDERS: ATTEND Student in an Organized Health Care Education/Training Program
DX: E83.51 Hypocalcemia (principal); C61 Malignant neoplasm of prostate; E83.41 Hypermagnesemia; I10 Essential (primary) hypertension

== ENCOUNTER → 2021-08-08 | Outpatient (REF) | payer MEDICARE, MEDICAID, OTHER ==
[2021-08-08 11:12] LABS: APPEARANCE, URINE CLEAR (CLEAR); BACTERIA, URINE AUTO NEGATIVE (NEGATIVE); BILIRUBIN, URINE AUTO NEGATIVE (NEGATIVE); BLOOD, URINE BLOOD NEGATIVE (NEGATIVE); COLOR, URINE YELLOW (YELLOW); GLUCOSE, URINE (UA) AUTO NEGATIVE (NEGATIVE); KETONE, URINE AUTO NEGATIVE (NEGATIVE); LEUKOCYTE ESTERASE, URINE AUTO 1+ (NEGATIVE); MUCUS, URINE SMALL (NEGATIVE); NITRITE, URINE AUTO NEGATIVE (NEGATIVE); PROTEIN, URINE AUTO 1+ mg/dL (NEGATIVE); RBC, URINE AUTO 3 /HPF (0-3); SPECIFIC GRAVITY URINE AUTO 1.012 (1.002-1.035); SQUAMOUS EPITHELIAL CELL UR AU 0 /HPF (0-6); UROBILINOGEN, URINE AUTO 0.2 mg/dL (0.0-2.0); WBC, URINE AUTO 1 /HPF (0-3)
== END ==
LOC: M SFHCPLAZ 10:56
PROVIDERS: ATTEND Student in an Organized Health Care Education/Training Program
DX: R30.0 Dysuria (principal)

== ENCOUNTER → 2021-09-19 | Outpatient (REF) | payer MEDICARE, MEDICAID, OTHER ==
[~2021-09-19] MED LIST changes: -MONT10TA10 PO; +MONT10TA97 PO
[2021-09-19 11:28] LABS: BLOOD UREA NITROGEN 15 MG/DL (7-18); CALCIUM LEVEL 8.9 MG/DL (8.8-10.2); CARBON DIOXIDE LEVEL 28 MEQ/L (21-32); CHLORIDE LEVEL 102 MEQ/L (98-107); CREATININE FOR GFR 1.09 MG/DL (0.70-1.30); GLOMERULAR FILTRATION RATE > 60.0 (>42); GLUCOSE, FASTING 155 MG/DL (70-100); MAGNESIUM LEVEL 1.5 MG/DL (1.8-2.4); POTASSIUM SERUM 4.5 MEQ/L (3.5-5.1); SODIUM LEVEL 137 MEQ/L (136-145)
== END ==
PROVIDERS: ATTEND Student in an Organized Health Care Education/Training Program
DX: I11.9 Hypertensive heart disease without heart failure (principal)

== ENCOUNTER → 2021-10-22 | Outpatient (REF) | payer MEDICARE, MEDICAID ==
[~2021-10-22] MED LIST changes: +OMEP-173 PO; -OMEP-218 PO
[2021-10-22 11:52] LABS: BASO % 0.5 % (0.0-1.0); EOS # 0.1 10^3/uL (0.0-0.5); EOS % 0.8 % (0.0-3.0); HEMATOCRIT 32.6 % (42.0-52.0); HEMOGLOBIN 10.3 g/dl (13.5-17.5); LYMPH # 0.7 10^3/uL (1.5-5.0); LYMPH % 10.9 % (24.0-44.0); MEAN CORPUSCULAR HEMOGLOBIN 28.1 pg (27.0-33.0); MEAN CORPUSCULAR HGB CONC 31.6 g/dl (32.0-36.5); MEAN CORPUSCULAR VOLUME 88.8 fl (80.0-96.0); MONO # 0.7 10^3/uL (0.0-0.8); MONO % 10.9 % (2.0-8.0); NEUTROPHILS # 4.8 10^3/uL (1.5-8.5); PLATELET COUNT, AUTOMATED 132 10^3/uL (150-450); RED BLOOD COUNT 3.67 10^6/uL (4.30-6.10); WHITE BLOOD COUNT 6.3 10^3/uL (4.0-10.0)
[2021-10-22 12:33] LABS: ALBUMIN 3.1 GM/DL (3.2-5.2); ALT/SGPT 18 U/L (12-78); BILIRUBIN,TOTAL 1.4 MG/DL (0.2-1.0); BLOOD UREA NITROGEN 20 MG/DL (7-18); CALCIUM LEVEL 8.4 MG/DL (8.8-10.2); CARBON DIOXIDE LEVEL 28 MEQ/L (21-32); CHLORIDE LEVEL 105 MEQ/L (98-107); CREATININE FOR GFR 1.05 MG/DL (0.70-1.30); GLOMERULAR FILTRATION RATE > 60.0 (>42); GLUCOSE, FASTING 113 MG/DL (70-100); POTASSIUM SERUM 4.5 MEQ/L (3.5-5.1); SODIUM LEVEL 140 MEQ/L (136-145); TOTAL PROTEIN 6.1 GM/DL (6.4-8.2)
[2021-10-22 13:26] LABS: VITAMIN B12 LEVEL 333 PG/ML (247-911)
[2021-10-22 13:27] LABS: FOLATE 23.9 NG/ML (>5.4)
== END ==
PROVIDERS: ATTEND Specialist
DX: D64.89 Other specified anemias (principal)

== ENCOUNTER → 2021-11-12 | Outpatient (REF) | payer MEDICARE, MEDICAID, OTHER ==
[2021-11-12 11:04] LABS: BLOOD UREA NITROGEN 19 MG/DL (7-18); CALCIUM LEVEL 8.9 MG/DL (8.8-10.2); CARBON DIOXIDE LEVEL 30 MEQ/L (21-32); CHLORIDE LEVEL 104 MEQ/L (98-107); CREATININE FOR GFR 1.07 MG/DL (0.70-1.30); GLOMERULAR FILTRATION RATE > 60.0 (>42); GLUCOSE, FASTING 194 MG/DL (70-100); NT-PRO BNP 1140 PG/ML (<450); POTASSIUM SERUM 4.4 MEQ/L (3.5-5.1); SODIUM LEVEL 139 MEQ/L (136-145)
== END ==
PROVIDERS: ATTEND Physician Assistant
DX: I11.0 Hypertensive heart disease with heart failure (principal)

== ENCOUNTER → 2021-12-12 | Outpatient (CLI) | payer MEDICARE ==
[~2021-12-12] MED LIST changes: +B-12100020 PO
== END ==
LOC: M WHC 10:45
PROVIDERS: ATTEND Urology
DX: N18.9 Chronic kidney disease, unspecified (principal)

== ENCOUNTER → 2022-02-27 | Outpatient (REF) | payer MEDICARE, MEDICAID, OTHER ==
[~2022-02-27] MED LIST changes: +ALBU2.5V10 NEB; -ALBU83IN NEB
[2022-02-27 11:26] LABS: BASO % 0.5 % (0.0-1.0); EOS # 0.1 10^3/uL (0.0-0.5); EOS % 0.9 % (0.0-3.0); HEMATOCRIT 33.2 % (42.0-52.0); HEMOGLOBIN 10.3 g/dl (13.5-17.5); LYMPH # 0.7 10^3/uL (1.5-5.0); LYMPH % 12.3 % (24.0-44.0); MEAN CORPUSCULAR HEMOGLOBIN 27.4 pg (27.0-33.0); MEAN CORPUSCULAR VOLUME 88.3 fl (80.0-96.0); MONO # 0.6 10^3/uL (0.0-0.8); MONO % 9.7 % (2.0-8.0); NEUTROPHILS # 4.4 10^3/uL (1.5-8.5); NEUTROPHILS % 75.7 % (36.0-66.0); PLATELET COUNT, AUTOMATED 132 10^3/uL (150-450); RED BLOOD COUNT 3.76 10^6/uL (4.30-6.10); WHITE BLOOD COUNT 5.8 10^3/uL (4.0-10.0)
[2022-02-27 11:58] LABS: ALT/SGPT 15 U/L (12-78); BILIRUBIN,TOTAL 1.3 MG/DL (0.2-1.0); BLOOD UREA NITROGEN 16 MG/DL (7-18); CARBON DIOXIDE LEVEL 28 MEQ/L (21-32); CHLORIDE LEVEL 105 MEQ/L (98-107); CREATININE FOR GFR 1.16 MG/DL (0.70-1.30); FERRITIN 31 NG/ML (26-388); GLOMERULAR FILTRATION RATE > 60.0 (>42); GLUCOSE, FASTING 152 MG/DL (70-100); IRON (FE) 46 UG/DL (65-175); PERCENT SATURATION 16.5 % (19.7-50.0); POTASSIUM SERUM 4.6 MEQ/L (3.5-5.1); SODIUM LEVEL 139 MEQ/L (136-145); TOTAL IRON BINDING CAPACITY 279 UG/DL (250-450)
[2022-02-27 13:09] LABS: FOLATE > 24.0 NG/ML (>5.4); VITAMIN B12 LEVEL 276 PG/ML (247-911)
== END ==
PROVIDERS: ATTEND Specialist
DX: D64.9 Anemia, unspecified (principal)

== ENCOUNTER → 2022-03-20 | Outpatient (CLI) | payer OTHER, MEDICARE, MEDICAID ==
[2022-03-20 17:24] LABS: ALBUMIN 3.5 GM/DL (3.2-5.2); ALT/SGPT 19 U/L (12-78); BILIRUBIN,TOTAL 1.7 MG/DL (0.2-1.0); BLOOD UREA NITROGEN 18 MG/DL (7-18); CARBON DIOXIDE LEVEL 28 MEQ/L (21-32); CHLORIDE LEVEL 104 MEQ/L (98-107); CHOLESTEROL LEVEL 91 MG/DL (<200); CHOLESTEROL RISK RATIO 2.219 (<5); CREATININE FOR GFR 1.11 MG/DL (0.70-1.30); GLOMERULAR FILTRATION RATE > 60.0 (>42); GLUCOSE, FASTING 137 MG/DL (70-100); HDL CHOLESTEROL 41 MG/DL (>40); LDL CHOLESTEROL 37 MG/DL (<100); NON-HDL-C 50 MG/DL; POTASSIUM SERUM 4.8 MEQ/L (3.5-5.1); SODIUM LEVEL 140 MEQ/L (136-145); TOTAL PROTEIN 6.5 GM/DL (6.4-8.2); TRIGLYCERIDES LEVEL 64 MG/DL (<150)
[2022-03-20 17:47] LABS: CREATININE, URINE 59.5 MG/DL; MALB URINE SIEMENS 89.3 MG/L
[2022-03-20 20:55] LABS: HEMOGLOBIN A1c 6.2 %
== END ==
LOC: M PLALAB 10:09
PROVIDERS: ATTEND Student in an Organized Health Care Education/Training Program
DX: E11.39 Type 2 diabetes mellitus with other diabetic ophthalmic complication (principal); I10 Essential (primary) hypertension

== ENCOUNTER → 2022-05-29 | Outpatient (REF) | payer OTHER, MEDICARE, MEDICAID ==
[~2022-05-29] MED LIST changes: -ASMA220A2 INH; +CALT1TAB PO; -DULE200A INH; +HYDR12.55; +K-TA10TA2 PO; +MOME13HF7 INH; +MOME220A2 INH; +NIRM1TAB; +PRESCAP PO
[2022-05-29 12:25] LABS: BASO % 0.3 % (0.0-1.0); EOS % 0.6 % (0.0-3.0); HEMATOCRIT 33.2 % (42.0-52.0); HEMOGLOBIN 10.6 g/dl (13.5-17.5); LYMPH # 0.8 10^3/uL (1.5-5.0); LYMPH % 22.3 % (24.0-44.0); MEAN CORPUSCULAR HEMOGLOBIN 27.7 pg (27.0-33.0); MEAN CORPUSCULAR HGB CONC 31.9 g/dl (32.0-36.5); MEAN CORPUSCULAR VOLUME 86.9 fl (80.0-96.0); MONO # 0.4 10^3/uL (0.0-0.8); NEUTROPHILS # 2.4 10^3/uL (1.5-8.5); NEUTROPHILS % 66.5 % (36.0-66.0); PLATELET COUNT, AUTOMATED 119 10^3/uL (150-450); RED BLOOD COUNT 3.82 10^6/uL (4.30-6.10); WHITE BLOOD COUNT 3.6 10^3/uL (4.0-10.0)
[2022-05-29 13:23] LABS: ALBUMIN 3.3 GM/DL (3.2-5.2); ALT/SGPT 23 U/L (12-78); BILIRUBIN,TOTAL 1.4 MG/DL (0.2-1.0); BLOOD UREA NITROGEN 17 MG/DL (7-18); CALCIUM LEVEL 8.6 MG/DL (8.8-10.2); CARBON DIOXIDE LEVEL 27 MEQ/L (21-32); CHLORIDE LEVEL 101 MEQ/L (98-107); CREATININE FOR GFR 1.02 MG/DL (0.70-1.30); FERRITIN 113 NG/ML (26-388); GLOMERULAR FILTRATION RATE > 60.0 (>42); GLUCOSE, FASTING 153 MG/DL (70-100); IRON (FE) 39 UG/DL (65-175); PERCENT SATURATION 13.2 % (19.7-50.0); POTASSIUM SERUM 4.5 MEQ/L (3.5-5.1); SODIUM LEVEL 134 MEQ/L (136-145); TOTAL IRON BINDING CAPACITY 296 UG/DL (250-450); TOTAL PROTEIN 6.5 GM/DL (6.4-8.2)
[2022-05-29 13:54] LABS: VITAMIN B12 LEVEL 338 PG/ML (247-911)
== END ==
PROVIDERS: ATTEND Specialist
DX: D64.9 Anemia, unspecified (principal)

== ENCOUNTER → 2022-07-22 | Outpatient (REF) | payer OTHER, MEDICARE, MEDICAID ==
[2022-07-22 11:43] LABS: BASO % 0.4 % (0.0-1.0); EOS # 0.1 10^3/uL (0.0-0.5); EOS % 1.2 % (0.0-3.0); HEMATOCRIT 34.9 % (42.0-52.0); HEMOGLOBIN 10.7 g/dl (13.5-17.5); LYMPH # 0.7 10^3/uL (1.5-5.0); LYMPH % 13.4 % (24.0-44.0); MEAN CORPUSCULAR HEMOGLOBIN 27.7 pg (27.0-33.0); MEAN CORPUSCULAR HGB CONC 30.7 g/dl (32.0-36.5); MEAN CORPUSCULAR VOLUME 90.4 fl (80.0-96.0); MONO # 0.4 10^3/uL (0.0-0.8); MONO % 8.5 % (2.0-8.0); NEUTROPHILS # 3.9 10^3/uL (1.5-8.5); NEUTROPHILS % 75.7 % (36.0-66.0); PLATELET COUNT, AUTOMATED 123 10^3/uL (150-450); RED BLOOD COUNT 3.86 10^6/uL (4.30-6.10); WHITE BLOOD COUNT 5.2 10^3/uL (4.0-10.0)
[2022-07-22 12:26] LABS: ALBUMIN 3.3 GM/DL (3.2-5.2); ALT/SGPT 20 U/L (12-78); BILIRUBIN,TOTAL 1.4 MG/DL (0.2-1.0); BLOOD UREA NITROGEN 15 MG/DL (7-18); CALCIUM LEVEL 8.6 MG/DL (8.8-10.2); CARBON DIOXIDE LEVEL 29 MEQ/L (21-32); CHLORIDE LEVEL 102 MEQ/L (98-107); CHOLESTEROL LEVEL 84 MG/DL (<200); CHOLESTEROL RISK RATIO 2.625 (<5); CREATININE FOR GFR 1.16 MG/DL (0.70-1.30); GLOMERULAR FILTRATION RATE > 60.0 (>42); GLUCOSE, FASTING 159 MG/DL (70-100); HDL CHOLESTEROL 32 MG/DL (>40); LDL CHOLESTEROL 35 MG/DL (<100); NON-HDL-C 52 MG/DL; NT-PRO BNP 944 PG/ML (<450); POTASSIUM SERUM 4.2 MEQ/L (3.5-5.1); SODIUM LEVEL 136 MEQ/L (136-145); TOTAL PROTEIN 6.3 GM/DL (6.4-8.2); TRIGLYCERIDES LEVEL 84 MG/DL (<150)
[2022-07-22 12:59] LABS: HEMOGLOBIN A1c 6.3 %
== END ==
PROVIDERS: ATTEND Student in an Organized Health Care Education/Training Program
DX: E11.39 Type 2 diabetes mellitus with other diabetic ophthalmic complication (principal); I10 Essential (primary) hypertension

== ENCOUNTER → 2022-08-26 | Outpatient (REF) | payer OTHER, MEDICARE, MEDICAID ==
[~2022-08-26] MED LIST changes: -POTA10CA32 PO; +POTA10CA33 PO
== END ==
PROVIDERS: ATTEND Family Medicine
DX: Z20.822 Contact with and (suspected) exposure to COVID-19 (principal)

== ENCOUNTER → 2022-08-27 | Outpatient (CLI) | payer MEDICAID, MEDICARE, OTHER ==
[2022-08-27 14:45] LABS: BASO % 0.3 % (0.0-1.0); EOS % 0.3 % (0.0-3.0); HEMATOCRIT 34.6 % (42.0-52.0); HEMOGLOBIN 10.9 g/dl (13.5-17.5); LYMPH # 0.8 10^3/uL (1.5-5.0); LYMPH % 6.6 % (24.0-44.0); MEAN CORPUSCULAR HEMOGLOBIN 28.2 pg (27.0-33.0); MEAN CORPUSCULAR HGB CONC 31.5 g/dl (32.0-36.5); MEAN CORPUSCULAR VOLUME 89.4 fl (80.0-96.0); MONO # 1.2 10^3/uL (0.0-0.8); MONO % 10.7 % (2.0-8.0); NEUTROPHILS # 9.3 10^3/uL (1.5-8.5); NEUTROPHILS % 81.3 % (36.0-66.0); PLATELET COUNT, AUTOMATED 144 10^3/uL (150-450); RED BLOOD COUNT 3.87 10^6/uL (4.30-6.10); WHITE BLOOD COUNT 11.4 10^3/uL (4.0-10.0)
[2022-08-27 15:11] LABS: CREATININE, URINE 98.8 MG/DL
[2022-08-27 15:12] LABS: ALBUMIN 3.2 G/DL (3.2-5.2); ALKALINE PHOSPHATASE 87 U/L (46-116); ALT/SGPT 12 U/L (7.0-40); AST/SGOT 13 U/L (<34); BILIRUBIN,TOTAL 2.2 MG/DL (0.3-1.2); BLOOD UREA NITROGEN 25 MG/DL (9-23); CALCIUM LEVEL 8.1 MG/DL (8.3-10.6); CARBON DIOXIDE LEVEL 26 MMOL/L (20-31); CHLORIDE LEVEL 102 MMOL/L (98-107); CHOLESTEROL LEVEL 77 MG/DL (<200); CHOLESTEROL RISK RATIO 2.62 (<5); GLOMERULAR FILTRATION RATE > 60.0 (>42); GLUCOSE, FASTING 118 MG/DL (74-106); HDL CHOLESTEROL 29.3 MG/DL (>40); LDL CHOLESTEROL 35.1 MG/DL (<100); MAU/CREAT RATIO 248.9 MCG/MG (0.0-30.0); NON-HDL-C 48 MG/DL; POTASSIUM SERUM 4.3 MMOL/L (3.5-5.1); SODIUM LEVEL 138 MMOL/L (136-145); TOTAL PROTEIN 6.4 G/DL (5.7-8.2); TRIGLYCERIDES LEVEL 63 MG/DL (<150)
== END ==
LOC: M PLALAB 12:16
PROVIDERS: ATTEND Student in an Organized Health Care Education/Training Program
DX: I10 Essential (primary) hypertension (principal); E11.39 Type 2 diabetes mellitus with other diabetic ophthalmic complication; Z85.46 Personal history of malignant neoplasm of prostate; E83.51 Hypocalcemia; R97.20 Elevated prostate specific antigen [PSA]

== ENCOUNTER → 2022-08-28 | Outpatient (REF) | payer OTHER, MEDICARE, MEDICAID ==
[2022-08-28 12:08] LABS: BASO % 0.2 % (0.0-1.0); EOS % 0.2 % (0.0-3.0); HEMATOCRIT 34.8 % (42.0-52.0); HEMOGLOBIN 10.9 g/dl (13.5-17.5); LYMPH # 0.5 10^3/uL (1.5-5.0); LYMPH % 4.6 % (24.0-44.0); MEAN CORPUSCULAR HEMOGLOBIN 28.5 pg (27.0-33.0); MEAN CORPUSCULAR HGB CONC 31.3 g/dl (32.0-36.5); MEAN CORPUSCULAR VOLUME 90.9 fl (80.0-96.0); MONO # 0.9 10^3/uL (0.0-0.8); MONO % 8.4 % (2.0-8.0); NEUTROPHILS # 8.9 10^3/uL (1.5-8.5); NEUTROPHILS % 85.9 % (36.0-66.0); PLATELET COUNT, AUTOMATED 148 10^3/uL (150-450); RED BLOOD COUNT 3.83 10^6/uL (4.30-6.10); WHITE BLOOD COUNT 10.3 10^3/uL (4.0-10.0)
[2022-08-28 12:25] LABS: IRON (FE) 22 UG/DL (65-175); PERCENT SATURATION 8.4 % (19.7-50.0); TOTAL IRON BINDING CAPACITY 263 UG/DL (250-425)
[2022-08-28 12:26] LABS: ALBUMIN 3.2 G/DL (3.2-5.2); ALKALINE PHOSPHATASE 90 U/L (46-116); ALT/SGPT 13 U/L (7.0-40); AST/SGOT 15 U/L (<34); BLOOD UREA NITROGEN 24 MG/DL (9-23); CALCIUM LEVEL 8.5 MG/DL (8.3-10.6); CARBON DIOXIDE LEVEL 27 MMOL/L (20-31); CHLORIDE LEVEL 97 MMOL/L (98-107); CREATININE FOR GFR 1.01 MG/DL (0.70-1.30); GLOMERULAR FILTRATION RATE > 60.0 (>42); GLUCOSE, FASTING 222 MG/DL (74-106); POTASSIUM SERUM 4.5 MMOL/L (3.5-5.1); SODIUM LEVEL 135 MMOL/L (136-145); TOTAL PROTEIN 6.4 G/DL (5.7-8.2)
[2022-08-28 12:30] LABS: FERRITIN 200.7 NG/ML (10.5-307.3)
== END ==
PROVIDERS: ATTEND Specialist
DX: C61 Malignant neoplasm of prostate (principal)
CPT/HCPCS: 36415; 80053; 82728; 83550; 85025; G0103

== ENCOUNTER → 2022-10-07 | Outpatient (CLI) | payer MEDICAID, MEDICARE, OTHER ==
[~2022-10-07] MED LIST changes: +ISOVUE-370 76% 100ML VIAL As Ordered ONE
== END ==
LOC: M RAD 08:15
PROVIDERS: ATTEND Urology
DX: R91.8 Other nonspecific abnormal finding of lung field (principal); K76.0 Fatty (change of) liver, not elsewhere classified; N28.89 Other specified disorders of kidney and ureter; N20.0 Calculus of kidney; K57.30 Diverticulosis of large intestine without perforation or abscess without bleeding
CPT/HCPCS: 74178; Q9967

== ENCOUNTER → 2022-10-21 | Outpatient (CLI) | payer MEDICARE, MEDICAID ==
[~2022-10-21] MED LIST changes: -ISOVUE-370 76% 100ML VIAL As Ordered ONE
== END ==
LOC: M WHC 08:18
PROVIDERS: ATTEND Student in an Organized Health Care Education/Training Program
DX: N28.89 Other specified disorders of kidney and ureter (principal); R10.9 Unspecified abdominal pain

== ENCOUNTER → 2022-11-20 | Outpatient (REF) | payer MEDICARE, MEDICAID ==
[2022-11-20 11:53] LABS: HEMOGLOBIN 11.2 g/dl (13.5-17.5); MEAN CORPUSCULAR HEMOGLOBIN 28.8 pg (27.0-33.0); PLATELET COUNT, AUTOMATED 118 10^3/uL (150-450); RED BLOOD COUNT 3.89 10^6/uL (4.30-6.10)
[2022-11-20 12:10] LABS: ALBUMIN 3.4 G/DL (3.2-5.2); ALKALINE PHOSPHATASE 79 U/L (46-116); ALT/SGPT 13 U/L (7.0-40); AST/SGOT 11 U/L (<34); BILIRUBIN,TOTAL 1.4 MG/DL (0.3-1.2); BLOOD UREA NITROGEN 21 MG/DL (9-23); CALCIUM LEVEL 8.7 MG/DL (8.3-10.6); CARBON DIOXIDE LEVEL 29 MMOL/L (20-31); CHLORIDE LEVEL 106 MMOL/L (98-107); CREATININE FOR GFR 0.91 MG/DL (0.70-1.30); GLOMERULAR FILTRATION RATE > 60.0 (>35); GLUCOSE, FASTING 131 MG/DL (74-106); POTASSIUM SERUM 4.6 MMOL/L (3.5-5.1); SODIUM LEVEL 138 MMOL/L (136-145); TOTAL PROTEIN 6.1 G/DL (5.7-8.2)
[2022-11-20 12:18] LABS: INR 1.32; PROTHROMBIN TIME 16.6 SECONDS (12.5-14.5)
== END ==
PROVIDERS: ATTEND Urology
DX: R39.9 Unspecified symptoms and signs involving the genitourinary system (principal)

== ENCOUNTER → 2022-11-25 | Outpatient (CLI) | payer MEDICARE, MEDICAID ==
[~2022-11-25] MED LIST changes: +ALBU8.5H; +ARNU1INH3; -HYDR12.55; +HYDR12.55 PO; +METF500T13 PO; +PRES10CA2 PO
== END ==
LOC: M RAD 10:03
PROVIDERS: ATTEND Urology
DX: R39.9 Unspecified symptoms and signs involving the genitourinary system (principal)

== ENCOUNTER → 2022-11-27 | Outpatient (REF) | payer MEDICARE, MEDICAID ==
[2022-11-27 11:12] LABS: HEMATOCRIT 33.6 % (42.0-52.0); HEMOGLOBIN 10.4 g/dl (13.5-17.5); MEAN CORPUSCULAR VOLUME 90.6 fl (80.0-96.0); PLATELET COUNT, AUTOMATED 108 10^3/uL (150-450); RED BLOOD COUNT 3.71 10^6/uL (4.30-6.10); WHITE BLOOD COUNT 5.1 10^3/uL (4.0-10.0)
[2022-11-27 11:25] LABS: INR 1.19; PROTHROMBIN TIME 15.4 SECONDS (12.5-14.5)
[2022-11-27 11:47] LABS: ALBUMIN 3.2 G/DL (3.2-5.2); ALKALINE PHOSPHATASE 78 U/L (46-116); ALT/SGPT 13 U/L (7.0-40); AST/SGOT 13 U/L (<34); BLOOD UREA NITROGEN 23 MG/DL (9-23); CALCIUM LEVEL 8.4 MG/DL (8.3-10.6); CARBON DIOXIDE LEVEL 27 MMOL/L (20-31); CHLORIDE LEVEL 102 MMOL/L (98-107); CREATININE FOR GFR 0.96 MG/DL (0.70-1.30); GLOMERULAR FILTRATION RATE > 60.0 (>35); GLUCOSE, FASTING 177 MG/DL (74-106); POTASSIUM SERUM 4.4 MMOL/L (3.5-5.1); SODIUM LEVEL 138 MMOL/L (136-145); TOTAL PROTEIN 5.8 G/DL (5.7-8.2)
== END ==
PROVIDERS: ATTEND Urology
DX: R39.9 Unspecified symptoms and signs involving the genitourinary system (principal)

== ENCOUNTER → 2022-12-02 | Outpatient (REF) | payer MEDICARE, MEDICAID | PROVIDERS: ATTEND Family Medicine | DX: R09.89 Other specified symptoms and signs involving the circulatory and respiratory systems (principal) ==

== ENCOUNTER 2022-12-05 10:31 | Day surgery (SDC) | payer MEDICARE, MEDICAID ==
[~2022-12-05] VITALS: Ht 179.1 cm; Wt 116.2 kg
[~2022-12-05 10:31] MED LIST changes: +ceFAZolin SOD 2 GM in IV 1 EA IV ONE
[2022-12-05] MEDS ORDERED: LR 1,000 ML IV SCH (11:50)
[2022-12-05] MEDS ORDERED: fentaNYL 100 MCG/2 ML INJECTION As Ordered ONE (13:29)
[2022-12-05] MEDS ORDERED: LIDOCAINE 2% 100MG/5ML SDV (FOR ANES.) As Ordered ONE (13:30)
[2022-12-05] MEDS ORDERED: propofoL 200 MG/20 ML VIAL As Ordered ONE (13:30)
[2022-12-05] MEDS ORDERED: ONDANSETRON 4MG 2ML VIAL As Ordered ONE (13:30)
[2022-12-05] MEDS ORDERED: MACR100C43 PO (14:45)
[2022-12-05] MEDS ORDERED: OXYB5TAB10 PO (14:45)
[2022-12-05] MEDS ORDERED: PYRI1TAB5 PO (14:45)
[2022-12-05 16:17] VITALS: BP 138/66
== END 2022-12-05 16:36 | disposition home or self-care (01) ==
LOC: M SDC 10:31
PROVIDERS: ATTEND Urology
DX: N35.919 Unspecified urethral stricture, male, unspecified site (principal); N47.1 Phimosis; J44.9 Chronic obstructive pulmonary disease, unspecified; I11.9 Hypertensive heart disease without heart failure; I48.91 Unspecified atrial fibrillation; I50.9 Heart failure, unspecified; E11.9 Type 2 diabetes mellitus without complications; D64.9 Anemia, unspecified; Z79.4 Long term (current) use of insulin; Z79.84 Long term (current) use of oral hypoglycemic drugs; Z79.01 Long term (current) use of anticoagulants; K21.9 Gastro-esophageal reflux disease without esophagitis; Z86.73 Personal history of transient ischemic attack (TIA), and cerebral infarction without residual deficits; Z92.3 Personal history of irradiation; E78.5 Hyperlipidemia, unspecified; G47.33 Obstructive sleep apnea (adult) (pediatric); Z88.5 Allergy status to narcotic agent
CPT/HCPCS: 52276; C1769; J0690; J1100; J2405; J3010

== ENCOUNTER → 2022-12-16 | Outpatient (REF) | payer MEDICARE, MEDICAID ==
[~2022-12-16] MED LIST changes: +MACR100C43 PO; +OXYB5TAB10 PO; +PYRI1TAB5 PO; -ceFAZolin SOD 2 GM in IV 1 EA IV ONE
[2022-12-17 10:30] LABS: APPEARANCE, URINE CLOUDY (CLEAR); BACTERIA, URINE AUTO NEGATIVE (NEGATIVE); BILIRUBIN, URINE AUTO NEGATIVE (NEGATIVE); BLOOD, URINE BLOOD 3+ (NEGATIVE); COLOR, URINE AMBER (YELLOW); GLUCOSE, URINE (UA) AUTO NEGATIVE (NEGATIVE); KETONE, URINE AUTO NEGATIVE (NEGATIVE); LEUKOCYTE ESTERASE, URINE AUTO TRACE (NEGATIVE); MUCUS, URINE SMALL (NEGATIVE); NITRITE, URINE AUTO NEGATIVE (NEGATIVE); PROTEIN, URINE AUTO 2+ mg/dL (NEGATIVE); RBC, URINE AUTO TNTC /HPF (0-3); SPECIFIC GRAVITY URINE AUTO 1.015 (1.002-1.035); SQUAMOUS EPITHELIAL CELL UR AU 0 /HPF (0-6); UROBILINOGEN, URINE AUTO 0.2 mg/dL (0.0-2.0); WBC, URINE AUTO 15 /HPF (0-3)
== END ==
PROVIDERS: ATTEND Physician Assistant
DX: R35.0 Frequency of micturition (principal)

== ENCOUNTER → 2023-01-08 | Outpatient (REF) | payer MEDICARE, MEDICAID ==
[2023-01-08 11:28] LABS: BASO % 0.3 % (0.0-1.0); EOS # 0.1 10^3/uL (0.0-0.5); EOS % 0.8 % (0.0-3.0); HEMATOCRIT 35.3 % (42.0-52.0); HEMOGLOBIN 11.3 g/dl (13.5-17.5); LYMPH # 0.9 10^3/uL (1.5-5.0); LYMPH % 15.1 % (24.0-44.0); MEAN CORPUSCULAR VOLUME 90.7 fl (80.0-96.0); MONO # 0.7 10^3/uL (0.0-0.8); MONO % 12.2 % (2.0-8.0); NEUTROPHILS # 4.2 10^3/uL (1.5-8.5); NEUTROPHILS % 70.9 % (36.0-66.0); PLATELET COUNT, AUTOMATED 139 10^3/uL (150-450); RED BLOOD COUNT 3.89 10^6/uL (4.30-6.10)
[2023-01-08 12:05] LABS: ALBUMIN 3.6 G/DL (3.2-5.2); ALKALINE PHOSPHATASE 78 U/L (46-116); ALT/SGPT 18 U/L (7.0-40); AST/SGOT 11 U/L (<34); BILIRUBIN,TOTAL 1.4 MG/DL (0.3-1.2); BLOOD UREA NITROGEN 13 MG/DL (9-23); CALCIUM LEVEL 8.8 MG/DL (8.3-10.6); CARBON DIOXIDE LEVEL 25 MMOL/L (20-31); CHLORIDE LEVEL 102 MMOL/L (98-107); CREATININE FOR GFR 0.94 MG/DL (0.70-1.30); GLOMERULAR FILTRATION RATE > 60.0 (>35); GLUCOSE, FASTING 121 MG/DL (74-106); POTASSIUM SERUM 4.8 MMOL/L (3.5-5.1); SODIUM LEVEL 136 MMOL/L (136-145); TOTAL PROTEIN 6.2 G/DL (5.7-8.2)
== END ==
PROVIDERS: ATTEND Nurse Practitioner
DX: Z85.46 Personal history of malignant neoplasm of prostate (principal)

== ENCOUNTER → 2023-03-12 | Outpatient (REF) | payer OTHER, MEDICARE ==
[~2023-03-12] MED LIST changes: -K-TA10TA2 PO; +POTA-165 PO; -POTA10CA33 PO; +POTA10CA60 PO
[2023-03-12 09:09] LABS: BLOOD UREA NITROGEN 24 MG/DL (9-23); CALCIUM LEVEL 8.9 MG/DL (8.3-10.6); CARBON DIOXIDE LEVEL 26 MMOL/L (20-31); CHLORIDE LEVEL 104 MMOL/L (98-107); GLOMERULAR FILTRATION RATE > 60.0 (>35); GLUCOSE, FASTING 137 MG/DL (74-106); IRON (FE) 32 UG/DL (65-175); PERCENT SATURATION 11.9 % (19.7-50.0); POTASSIUM SERUM 4.5 MMOL/L (3.5-5.1); SODIUM LEVEL 137 MMOL/L (136-145); TOTAL IRON BINDING CAPACITY 269 UG/DL (250-425)
[2023-03-12 09:12] LABS: FERRITIN 55.3 NG/ML (10.5-307.3)
== END ==
PROVIDERS: ATTEND Urology
DX: N28.89 Other specified disorders of kidney and ureter (principal); D50.9 Iron deficiency anemia, unspecified

== ENCOUNTER → 2023-07-09 | Outpatient (REF) | payer OTHER, MEDICARE ==
[~2023-07-09] MED LIST changes: +ELIQ5TAB; -OXYB5TAB10 PO; +OXYB5TAB11 PO
== END ==
PROVIDERS: ATTEND Specialist
DX: D64.9 Anemia, unspecified (principal); Z85.46 Personal history of malignant neoplasm of prostate; Z85.3 Personal history of malignant neoplasm of breast

== ENCOUNTER → 2023-07-25 | Outpatient (REF) | payer OTHER, MEDICARE ==
[2023-07-25 07:09] LABS: BASO % 0.4 % (0.0-1.0); EOS # 0.1 10^3/uL (0.0-0.5); EOS % 1.4 % (0.0-3.0); HEMATOCRIT 31.3 % (42.0-52.0); HEMOGLOBIN 9.9 g/dl (13.5-17.5); LYMPH # 0.5 10^3/uL (1.5-5.0); LYMPH % 10.7 % (24.0-44.0); MEAN CORPUSCULAR HEMOGLOBIN 28.2 pg (27.0-33.0); MEAN CORPUSCULAR HGB CONC 31.6 g/dl (32.0-36.5); MEAN CORPUSCULAR VOLUME 89.2 fl (80.0-96.0); MONO # 0.6 10^3/uL (0.0-0.8); MONO % 12.3 % (2.0-8.0); NEUTROPHILS # 3.8 10^3/uL (1.5-8.5); NEUTROPHILS % 74.4 % (36.0-66.0); PLATELET COUNT, AUTOMATED 112 10^3/uL (150-450); RED BLOOD COUNT 3.51 10^6/uL (4.30-6.10); WHITE BLOOD COUNT 5.1 10^3/uL (4.0-10.0)
[2023-07-25 07:46] LABS: HEMOGLOBIN A1c 6.2 % (4.0-6.0)
== END ==
PROVIDERS: ATTEND Student in an Organized Health Care Education/Training Program
DX: D50.9 Iron deficiency anemia, unspecified (principal); E11.9 Type 2 diabetes mellitus without complications

== ENCOUNTER → 2023-08-29 | Outpatient (REF) | payer OTHER, MEDICARE, MEDICAID | PROVIDERS: ATTEND Physician Assistant | DX: Z85.46 Personal history of malignant neoplasm of prostate (principal) ==

== ENCOUNTER 2023-12-08 14:08 | Inpatient (IN) | payer MEDICARE, MEDICAID ==
[~2023-12-08] VITALS: Ht 182.9 cm; Wt 117.5 kg
[~2023-12-08 14:08] MED LIST changes: -ALBU8.5H; +ALBU8.5H INH; -ARNU1INH3; +ARNU1INH3 INH; -ELIQ5TAB; -OXYB5TAB11 PO; +OXYB5TAB14 PO
[2023-12-08] MEDS: IPRATROPIUM 0.5MG/ALBUTEROL 2.5MG INH SOL UD 3ML (DUONEB) NEB PRN (15:21)
[2023-12-08 15:31] LABS: BASO % 0.2 % (0.0-1.0); EOS % 0.5 % (0.0-3.0); HEMATOCRIT 29.7 % (42.0-52.0); HEMOGLOBIN 9.3 g/dl (13.5-17.5); LYMPH # 0.4 10^3/uL (1.5-5.0); LYMPH % 5.2 % (24.0-44.0); MEAN CORPUSCULAR HEMOGLOBIN 28.6 pg (27.0-33.0); MEAN CORPUSCULAR HGB CONC 31.3 g/dl (32.0-36.5); MEAN CORPUSCULAR VOLUME 91.4 fl (80.0-96.0); MONO # 0.7 10^3/uL (0.0-0.8); MONO % 8.7 % (2.0-8.0); NEUTROPHILS # 6.9 10^3/uL (1.5-8.5); NEUTROPHILS % 84.5 % (36.0-66.0); PLATELET COUNT, AUTOMATED 103 10^3/uL (150-450); RED BLOOD COUNT 3.25 10^6/uL (4.30-6.10); WHITE BLOOD COUNT 8.2 10^3/uL (4.0-10.0)
[2023-12-08 15:45] LABS: INR 1.58; PARTIAL THROMBOPLASTIN TIME 39.1 SECONDS (24.8-34.2); PROTHROMBIN TIME 18.4 SECONDS (12.5-14.5)
[2023-12-08 15:55] LABS: ALKALINE PHOSPHATASE 71 U/L (46-116); ALT/SGPT 16 U/L (7.0-40); AST/SGOT 10 U/L (<34); BILIRUBIN,TOTAL 2.5 MG/DL (0.3-1.2); BLOOD UREA NITROGEN 25 MG/DL (9-23); CALCIUM LEVEL 8.1 MG/DL (8.3-10.6); CARBON DIOXIDE LEVEL 31 MMOL/L (20-31); CHLORIDE LEVEL 102 MMOL/L (98-107); CK-MB VALUE MASS < 1.0 NG/ML (<3.6); CPK CREATINE PHOSPHOKINASE 21 U/L (46-171); CREATININE FOR GFR 1.13 MG/DL (0.70-1.30); GLOMERULAR FILTRATION RATE > 60.0 (>35); GLUCOSE, FASTING 152 MG/DL (74-106); MB/CK RELATIVE INDEX 4.76 (< OR =4); POTASSIUM SERUM 4.3 MMOL/L (3.5-5.1); SODIUM LEVEL 134 MMOL/L (136-145); TOTAL PROTEIN 5.6 G/DL (5.7-8.2)
[2023-12-08 15:57] LABS: FREE T4 0.91 NG/DL (0.89-1.76); THYROID STIMULATING HORMONE 3.089 uIU/ML (0.55-4.78)
[2023-12-08] MEDS ORDERED: ISOVUE-370 76% 100ML VIAL As Ordered ONE (16:58)
[2023-12-08 17:45] LABS: CK-MB VALUE MASS < 1.0 NG/ML (<3.6)
[2023-12-08 17:47] LABS: CPK CREATINE PHOSPHOKINASE 31 U/L (46-171); MB/CK RELATIVE INDEX 3.22 (< OR =4)
[2023-12-08] MEDS: cefTRIAXone SOD 1 GM in D5W MINI-BAG PLUS 50 ML IV ONE (18:52)
[2023-12-08] MEDS: AZITHROMYCIN 250MG TABLET PO ONE (18:53)
[2023-12-08] MEDS ORDERED: GLUCAGON INJ 1MG VIAL SC PRN (18:55)
[2023-12-08] MEDS ORDERED: DEXTROSE 50% 50ML SYRINGE IV PRN (18:55)
[2023-12-08] MEDS ORDERED: GLUCOSE 4GM CHEW TABLET PO PRN (18:55)
[2023-12-08] MEDS: IPRATROPIUM 0.02% SOLN 0.5MG 2.5ML NEB NEB SCH (19:05)
[2023-12-08] MEDS: LEVALBUTEROL 1.25MG 0.5ML CONCENTRATE NEB NEB SCH (19:05)
[2023-12-08 19:07] LABS: ABG BASE EXCESS -0.8 (-2.0-2.0); ABG HCO3 23.8 MMOL/L (22.0-26.0); ABG O2 SATURATION 96.2 % (95.0-99.0); ABG PARTIAL PRESSURE CO2 39.1 mmHg (35.0-45.0); ABG PARTIAL PRESSURE O2 80.8 mmHg (75.0-100.0); ABG STANDARD HCO3 23.8 MMOL/L. (22.0-26.0); ABG pH (ARTERIAL) 7.402 UNITS (7.350-7.450)
[2023-12-08 20:57] LABS: INR 1.52; PARTIAL THROMBOPLASTIN TIME 29.8 SECONDS (24.8-34.2); PROTHROMBIN TIME 17.8 SECONDS (12.5-14.5)
[2023-12-08] MEDS: INSULIN LISPRO (NovoLOG) PER UNIT SC SCH (21:22)
[2023-12-08] MEDS: DOXYCYCLINE HYCLATE 100 MG in D5W MINI-BAG PLUS 100 ML IV SCH (21:27)
[2023-12-08] MEDS ORDERED: ASPECRE TOP (21:45)
[2023-12-08] MEDS ORDERED: CAPS42.54 TOP (21:45)
[2023-12-08] MEDS ORDERED: CALCTAB38 PO (21:45)
[2023-12-08] MEDS ORDERED: DEBR6.5S4 AU (22:37)
[2023-12-08] MEDS ORDERED: FERR325T3 PO (22:37)
[2023-12-08] MEDS ORDERED: MULT400T10 PO (22:58)
[2023-12-08] MEDS ORDERED: SYST1SOL OU (22:58)
[2023-12-08] MEDS ORDERED: METF-839 PO (22:58)
[2023-12-08] MEDS ORDERED: B-121TAB3 PO (22:58)
[2023-12-08] MEDS ORDERED: GABA-284 PO (22:58)
[2023-12-08] MEDS ORDERED: GLUC500T13 PO (22:58)
[2023-12-08] MEDS ORDERED: VITA-158 PO (22:58)
[2023-12-08] MEDS ORDERED: POLY17PO18 PO (22:58)
[2023-12-08] MEDS ORDERED: HOME MED LIST COMPLETE! XX SCH (23:00)
[2023-12-09] VITALS (27 sets, daily range): BP systolic 109–127; BP diastolic 55–68; PULSE 88; TEMP 97.3–97.8; O2SAT 90–97
[2023-12-09] MEDS: PIPERACILLIN/TAZOBACTAM SOD 4.5 GM in D5W MINI-BAG PLUS 50 ML IV SCH (00:42)
[2023-12-09] MEDS: APIXABAN 5 MG TAB (ELIQUIS) PO SCH (02:44)
[2023-12-09 05:13] LABS: HEMATOCRIT 28.2 % (42.0-52.0); HEMOGLOBIN 8.7 g/dl (13.5-17.5); MEAN CORPUSCULAR HGB CONC 30.9 g/dl (32.0-36.5); MEAN CORPUSCULAR VOLUME 90.7 fl (80.0-96.0); PLATELET COUNT, AUTOMATED 100 10^3/uL (150-450); RED BLOOD COUNT 3.11 10^6/uL (4.30-6.10); WHITE BLOOD COUNT 6.3 10^3/uL (4.0-10.0)
[2023-12-09 05:32] LABS: ALBUMIN 2.8 G/DL (3.2-5.2); ALKALINE PHOSPHATASE 67 U/L (46-116); ALT/SGPT 14 U/L (7.0-40); AST/SGOT < 8 U/L (<34); BILIRUBIN,TOTAL 1.7 MG/DL (0.3-1.2); BLOOD UREA NITROGEN 30 MG/DL (9-23); CALCIUM LEVEL 7.9 MG/DL (8.3-10.6); CARBON DIOXIDE LEVEL 29 MMOL/L (20-31); CHLORIDE LEVEL 103 MMOL/L (98-107); CREATININE FOR GFR 1.12 MG/DL (0.70-1.30); GLOMERULAR FILTRATION RATE > 60.0 (>35); GLUCOSE, FASTING 180 MG/DL (74-106); MAGNESIUM LEVEL 1.6 MG/DL (1.8-2.4); POTASSIUM SERUM 4.5 MMOL/L (3.5-5.1); SODIUM LEVEL 138 MMOL/L (136-145); TOTAL PROTEIN 5.5 G/DL (5.7-8.2)
[2023-12-09] MEDS: MAG SULF 1GM/100ML (MAG RUN) 1 GM in IV 1 EA IV ONE (08:44)
[2023-12-09] MEDS: DOXYCYCLINE HYCLATE 100MG TABLET PO SCH (08:44)
[2023-12-09] MEDS: predniSONE 20 MG TAB PO SCH (08:44)
[2023-12-09] MEDS: INSULIN LISPRO (NovoLOG) PER UNIT SC SCH (08:44)
[2023-12-09] MEDS ORDERED: MIRALAX *UNIT DOSE* 17GM PACKET PO PRN (09:55)
[2023-12-09] MEDS: cefTRIAXone SOD 1 GM in D5W MINI-BAG PLUS 50 ML IV SCH (11:36)
[2023-12-09] MEDS: CYANOCOBALAMIN 500 MCG TAB PO SCH (11:36)
[2023-12-09] MEDS: DOCUSATE SODIUM 100MG CAPSULE PO SCH (11:36)
[2023-12-09] MEDS: OMEPRAZOLE 20MG CAP PO SCH (11:36)
[2023-12-09] MEDS: AZITHROMYCIN 250MG TABLET PO SCH (11:36)
[2023-12-09] MEDS: FUROSEMIDE 40MG/4ML VIAL IV SCH (11:36)
[2023-12-09] MEDS: CARBAMIDE PEROXIDE 6.5% OTIC SOLN 15ML AU SCH (11:37)
[2023-12-09] MEDS: TIOTROPIUM INHALER/CAPSULE (SPIRIVA) INH SCH (14:46)
[2023-12-09] MEDS: SYMBICORT 80/4.5MCG INHALER 6GM INH SCH (14:46)
[2023-12-09] MEDS: ATORVASTATIN 20 MG TAB PO SCH (21:39)
[2023-12-09] MEDS: GABAPENTIN 400MG CAP PO SCH (21:39)
[2023-12-10] VITALS (28 sets, daily range): BP systolic 100–123; BP diastolic 52–66; TEMP 96–98.3; O2SAT 88–99
[2023-12-10 05:52] LABS: HEMATOCRIT 28.9 % (42.0-52.0); HEMOGLOBIN 9.4 g/dl (13.5-17.5); MEAN CORPUSCULAR HEMOGLOBIN 28.5 pg (27.0-33.0); MEAN CORPUSCULAR HGB CONC 32.5 g/dl (32.0-36.5); MEAN CORPUSCULAR VOLUME 87.6 fl (80.0-96.0); PLATELET COUNT, AUTOMATED 123 10^3/uL (150-450); WHITE BLOOD COUNT 5.2 10^3/uL (4.0-10.0)
[2023-12-10 06:10] LABS: CALCIUM LEVEL 8.6 MG/DL (8.3-10.6); CREATININE FOR GFR 1.28 MG/DL (0.70-1.30); GLOMERULAR FILTRATION RATE 57.4 (>35); MAGNESIUM LEVEL 1.7 MG/DL (1.8-2.4); POTASSIUM SERUM 4.5 MMOL/L (3.5-5.1)
[2023-12-10] MEDS: MAG SULF 1GM/100ML (MAG RUN) 1 GM in IV 1 EA IV ONE (08:15)
[2023-12-10] MEDS: ACETAMINOPHEN TAB 650MG DOSE (2X325MG) PO PRN (10:04)
[2023-12-11] VITALS (25 sets, daily range): BP systolic 106–124; BP diastolic 54–64; TEMP 97.1–98.3; O2SAT 82–94
[2023-12-11 06:14] LABS: HEMATOCRIT 31.2 % (42.0-52.0); HEMOGLOBIN 10.3 g/dl (13.5-17.5); MEAN CORPUSCULAR HEMOGLOBIN 28.7 pg (27.0-33.0); MEAN CORPUSCULAR VOLUME 86.9 fl (80.0-96.0); PLATELET COUNT, AUTOMATED 154 10^3/uL (150-450); RED BLOOD COUNT 3.59 10^6/uL (4.30-6.10); WHITE BLOOD COUNT 4.9 10^3/uL (4.0-10.0)
[2023-12-11 06:32] LABS: BLOOD UREA NITROGEN 35 MG/DL (9-23); CALCIUM LEVEL 8.7 MG/DL (8.3-10.6); CARBON DIOXIDE LEVEL 33 MMOL/L (20-31); CHLORIDE LEVEL 96 MMOL/L (98-107); CREATININE FOR GFR 1.17 MG/DL (0.70-1.30); GLOMERULAR FILTRATION RATE > 60.0 (>35); GLUCOSE, FASTING 175 MG/DL (74-106); MAGNESIUM LEVEL 1.5 MG/DL (1.8-2.4); POTASSIUM SERUM 3.6 MMOL/L (3.5-5.1); SODIUM LEVEL 135 MMOL/L (136-145)
[2023-12-11] MEDS: MAGNESIUM OXIDE 400MG TAB (MAG-OX) PO SCH (08:14)
[2023-12-11] MEDS: MAG SULF 1GM/100ML (MAG RUN) 1 GM in IV 1 EA IV SCH (08:14)
[2023-12-11] MEDS: LevoFLOXacin 750 MG TABLET PO SCH (11:18)
[2023-12-11] MEDS: FUROSEMIDE 40MG/4ML VIAL IV SCH (11:18)
[2023-12-12] VITALS (11 sets, daily range): BP systolic 112–134; BP diastolic 58–68; TEMP 97.2; O2SAT 88–96
[2023-12-12 06:06] LABS: HEMOGLOBIN 10.7 g/dl (13.5-17.5); MEAN CORPUSCULAR HEMOGLOBIN 27.4 pg (27.0-33.0); MEAN CORPUSCULAR HGB CONC 31.5 g/dl (32.0-36.5); PLATELET COUNT, AUTOMATED 168 10^3/uL (150-450); RED BLOOD COUNT 3.91 10^6/uL (4.30-6.10); WHITE BLOOD COUNT 7.4 10^3/uL (4.0-10.0)
[2023-12-12 06:28] LABS: BLOOD UREA NITROGEN 36 MG/DL (9-23); CALCIUM LEVEL 8.6 MG/DL (8.3-10.6); CARBON DIOXIDE LEVEL 33 MMOL/L (20-31); CHLORIDE LEVEL 96 MMOL/L (98-107); CREATININE FOR GFR 1.18 MG/DL (0.70-1.30); GLOMERULAR FILTRATION RATE > 60.0 (>35); GLUCOSE, FASTING 198 MG/DL (74-106); MAGNESIUM LEVEL 1.7 MG/DL (1.8-2.4); POTASSIUM SERUM 3.8 MMOL/L (3.5-5.1); SODIUM LEVEL 137 MMOL/L (136-145)
[2023-12-12] MEDS: MAG SULF 1GM/100ML (MAG RUN) 1 GM in IV 1 EA IV ONE (08:59)
[2023-12-12] MEDS: acetaZOLAMIDE 500MG ER CAP PO SCH (09:00)
[2023-12-12] MEDS ORDERED: MAGN400T2 PO (10:27)
[2023-12-12] MEDS ORDERED: SPIR-10 PO (10:27)
[2023-12-12] MEDS ORDERED: LASI40TA9 PO (10:27)
[2023-12-12] MEDS ORDERED: LEVO750T14 PO (10:27)
[2023-12-12] MEDS ORDERED: PRED20TA PO ×2 (10:27→10:56)
[2023-12-15 17:07] LABS: BODY FLUID CULTURE Not indicated. (.); LEGIONELLA ANTIGEN URINE Negative (Negative); ORGANISM ID Not indicated. (.); SPECIMEN SOURCE Urine (.); URINE STREP PNEUMONIAE ANTIGEN Negative (Negative)
== END 2023-12-12 12:02 | DRG 190 ==
LOC: EDBD 14:08 → M ED 14:49 → M ED INP 18:28 → EEVIPCON 18:28 → ENRESERV 12-09 00:47 → M PCU 12-09 02:18
PROVIDERS: ADMIT Internal Medicine; ATTEND Internal Medicine
PROC: 0T9B70Z Drainage of Bladder with Drainage Device, Via Natural or Artificial Opening (ICD-10-PCS; principal; 2023-12-10)
PROC: B246ZZZ Ultrasonography of Right and Left Heart (ICD-10-PCS; 2023-12-10)
DX: J44.0 Chronic obstructive pulmonary disease with (acute) lower respiratory infection (principal); J15.1 Pneumonia due to Pseudomonas; I50.22 Chronic systolic (congestive) heart failure; E11.9 Type 2 diabetes mellitus without complications; G47.33 Obstructive sleep apnea (adult) (pediatric); D50.9 Iron deficiency anemia, unspecified; I11.0 Hypertensive heart disease with heart failure; I48.91 Unspecified atrial fibrillation; J44.1 Chronic obstructive pulmonary disease with (acute) exacerbation; I27.20 Pulmonary hypertension, unspecified; D69.6 Thrombocytopenia, unspecified; E78.5 Hyperlipidemia, unspecified; K21.9 Gastro-esophageal reflux disease without esophagitis; E83.42 Hypomagnesemia; Z66 Do not resuscitate; N20.0 Calculus of kidney; R32 Unspecified urinary incontinence; I34.0 Nonrheumatic mitral (valve) insufficiency; Z85.46 Personal history of malignant neoplasm of prostate; Z79.84 Long term (current) use of oral hypoglycemic drugs; Z79.899 Other long term (current) drug therapy; Z88.5 Allergy status to narcotic agent

== ENCOUNTER → 2023-12-31 | Outpatient (REF) | payer MEDICARE, MEDICAID ==
[~2023-12-31] MED LIST changes: +ASPECRE TOP; +B-121TAB3 PO; +CALCTAB38 PO; +CAPS42.54 TOP; +DEBR6.5S4 AU; +GABA-284 PO; +GLUC500T13 PO; +LASI40TA9 PO; +LEVO750T14 PO; +MAGN400T2 PO; +METF-839 PO; +MULT400T10 PO; +POLY17PO18 PO; +PRED20TA PO; +SPIR-10 PO; +SYST1SOL OU; +VITA-158 PO
== END ==
LOC: M SFHCPLAZ 12:07
PROVIDERS: ATTEND Student in an Organized Health Care Education/Training Program
DX: J15.1 Pneumonia due to Pseudomonas (principal); I27.20 Pulmonary hypertension, unspecified; E83.42 Hypomagnesemia

== ENCOUNTER → 2024-01-02 | Outpatient (REF) | payer MEDICARE, MEDICAID ==
[~2024-01-02] MED LIST changes: -POTA10CA60 PO; +POTA10CA70 PO; +VITA250T27 PO; -VITA250T4 PO
[2024-01-02 07:49] LABS: BASO % 0.2 % (0.0-1.0); EOS # 0.1 10^3/uL (0.0-0.5); EOS % 1.6 % (0.0-3.0); HEMATOCRIT 30.8 % (42.0-52.0); HEMOGLOBIN 9.7 g/dl (13.5-17.5); LYMPH # 0.8 10^3/uL (1.5-5.0); LYMPH % 15.9 % (24.0-44.0); MEAN CORPUSCULAR HEMOGLOBIN 28.2 pg (27.0-33.0); MEAN CORPUSCULAR HGB CONC 31.5 g/dl (32.0-36.5); MEAN CORPUSCULAR VOLUME 89.5 fl (80.0-96.0); MONO # 0.6 10^3/uL (0.0-0.8); MONO % 11.8 % (2.0-8.0); NEUTROPHILS # 3.4 10^3/uL (1.5-8.5); NEUTROPHILS % 69.7 % (36.0-66.0); PLATELET COUNT, AUTOMATED 116 10^3/uL (150-450); RED BLOOD COUNT 3.44 10^6/uL (4.30-6.10); WHITE BLOOD COUNT 4.9 10^3/uL (4.0-10.0)
[2024-01-02 08:08] LABS: ALBUMIN 3.1 G/DL (3.2-5.2); ALKALINE PHOSPHATASE 85 U/L (46-116); ALT/SGPT 14 U/L (7.0-40); AST/SGOT 13 U/L (<34); BILIRUBIN,TOTAL 1.5 MG/DL (0.3-1.2); BLOOD UREA NITROGEN 26 MG/DL (9-23); CALCIUM LEVEL 8.3 MG/DL (8.3-10.6); CARBON DIOXIDE LEVEL 29 MMOL/L (20-31); CHLORIDE LEVEL 101 MMOL/L (98-107); CREATININE FOR GFR 1.12 MG/DL (0.70-1.30); GLOMERULAR FILTRATION RATE > 60.0 (>35); GLUCOSE, FASTING 152 MG/DL (74-106); MAGNESIUM LEVEL 1.4 MG/DL (1.8-2.4); POTASSIUM SERUM 4.7 MMOL/L (3.5-5.1); SODIUM LEVEL 137 MMOL/L (136-145)
[2024-01-02 08:27] LABS: ERYTHROCYTE SEDIMENTATION RATE 17 mm/hr (0-20)
== END ==
PROVIDERS: ATTEND Student in an Organized Health Care Education/Training Program
DX: E83.42 Hypomagnesemia (principal); J15.1 Pneumonia due to Pseudomonas; I27.20 Pulmonary hypertension, unspecified

== ENCOUNTER → 2024-01-06 | Outpatient (CLI) | payer MEDICARE, MEDICAID | LOC: M PLAIMG 09:53 | PROVIDERS: ATTEND Student in an Organized Health Care Education/Training Program | DX: J15.1 Pneumonia due to Pseudomonas (principal) ==

== ENCOUNTER → 2024-02-09 | Outpatient (REF) | payer MEDICARE, MEDICAID ==
[2024-02-09 12:04] LABS: ALBUMIN 3.3 G/DL (3.2-5.2); BILIRUBIN,TOTAL 1.3 MG/DL (0.3-1.2); CALCIUM LEVEL 8.8 MG/DL (8.3-10.6); CREATININE FOR GFR 1.31 MG/DL (0.70-1.30); FERRITIN 34.1 NG/ML (10.5-307.3); GLOMERULAR FILTRATION RATE 55.9 (>35); MAGNESIUM LEVEL 1.3 MG/DL (1.8-2.4); PERCENT SATURATION 20.1 % (19.7-50.0); TOTAL PROTEIN 6.4 G/DL (5.7-8.2)
[2024-02-09 12:37] LABS: HEMOGLOBIN A1c 6.9 % (4.0-6.0)
== END ==
PROVIDERS: ATTEND Student in an Organized Health Care Education/Training Program
DX: E83.42 Hypomagnesemia (principal); I10 Essential (primary) hypertension; D50.9 Iron deficiency anemia, unspecified; E11.9 Type 2 diabetes mellitus without complications

== ENCOUNTER → 2024-02-10 | Outpatient (REF) | payer MEDICARE, MEDICAID ==
[2024-02-10 13:16] LABS: APPEARANCE, URINE HAZY (CLEAR); BACTERIA, URINE AUTO 1+ (NEGATIVE); BILIRUBIN, URINE AUTO NEGATIVE (NEGATIVE); BLOOD, URINE BLOOD 1+ (NEGATIVE); COLOR, URINE YELLOW (YELLOW); GLUCOSE, URINE (UA) AUTO NEGATIVE (NEGATIVE); KETONE, URINE AUTO NEGATIVE (NEGATIVE); LEUKOCYTE ESTERASE, URINE AUTO NEGATIVE (NEGATIVE); MUCUS, URINE SMALL (NEGATIVE); NITRITE, URINE AUTO NEGATIVE (NEGATIVE); PROTEIN, URINE AUTO 1+ mg/dL (NEGATIVE); RBC, URINE AUTO 71 /HPF (0-3); SPECIFIC GRAVITY URINE AUTO 1.017 (1.002-1.035); SQUAMOUS EPITHELIAL CELL UR AU 1 /HPF (0-6); UROBILINOGEN, URINE AUTO 0.2 mg/dL (0.0-2.0); WBC, URINE AUTO 4 /HPF (0-3)
== END ==
LOC: M SMT 12:37
PROVIDERS: ATTEND Physician Assistant
DX: N39.3 Stress incontinence (female) (male) (principal)

== ENCOUNTER → 2024-03-10 | Outpatient (REF) | payer MEDICARE, MEDICAID ==
[2024-03-10 11:50] LABS: BASO % 0.2 % (0.0-1.0); EOS # 0.1 10^3/uL (0.0-0.5); EOS % 1.6 % (0.0-3.0); HEMATOCRIT 31.9 % (42.0-52.0); HEMOGLOBIN 10.3 g/dl (13.5-17.5); LYMPH # 0.9 10^3/uL (1.5-5.0); LYMPH % 15.4 % (24.0-44.0); MEAN CORPUSCULAR HEMOGLOBIN 28.8 pg (27.0-33.0); MEAN CORPUSCULAR HGB CONC 32.3 g/dl (32.0-36.5); MEAN CORPUSCULAR VOLUME 89.1 fl (80.0-96.0); MONO # 0.6 10^3/uL (0.0-0.8); MONO % 10.3 % (2.0-8.0); NEUTROPHILS % 71.6 % (36.0-66.0); PLATELET COUNT, AUTOMATED 125 10^3/uL (150-450); RED BLOOD COUNT 3.58 10^6/uL (4.30-6.10); WHITE BLOOD COUNT 5.5 10^3/uL (4.0-10.0)
[2024-03-10 12:29] LABS: THYROID STIMULATING HORMONE 2.546 uIU/ML (0.55-4.78)
[2024-03-10 12:30] LABS: FREE T4 0.91 NG/DL (0.89-1.76); VITAMIN B12 LEVEL 344 PG/ML (211-911)
[2024-03-10 12:31] LABS: FOLATE > 24.0 NG/ML (>5.4)
[2024-03-10 12:33] LABS: ALBUMIN 3.5 G/DL (3.2-5.2); ALKALINE PHOSPHATASE 91 U/L (46-116); ALT/SGPT 15 U/L (7.0-40); AST/SGOT < 8 U/L (<34); BILIRUBIN,TOTAL 1.1 MG/DL (0.3-1.2); BLOOD UREA NITROGEN 26 MG/DL (9-23); CALCIUM LEVEL 8.8 MG/DL (8.3-10.6); CARBON DIOXIDE LEVEL 24 MMOL/L (20-31); CHLORIDE LEVEL 106 MMOL/L (98-107); CREATININE FOR GFR 1.12 MG/DL (0.70-1.30); GLOMERULAR FILTRATION RATE > 60.0 (>35); GLUCOSE, FASTING 96 MG/DL (74-106); POTASSIUM SERUM 5.4 MMOL/L (3.5-5.1); SODIUM LEVEL 138 MMOL/L (136-145); TOTAL PROTEIN 6.3 G/DL (5.7-8.2)
[2024-03-13 22:56] LABS: VITAMIN E(GAMMA TOCOPHEROL) < 1.0 mg/L (<=4.3)
[2024-03-15 08:18] LABS: VITAMIN B1 LEVEL WHOLE BLOOD 92 nmol/L (78-185)
[2024-03-15 13:21] LABS: VITAMIN B6,PYRIDOXAL PHOSPHATE 8.5 ng/mL (2.1-21.7)
== END ==
PROVIDERS: ATTEND Psychiatry & Neurology Neurology
DX: R41.3 Other amnesia (principal); E07.9 Disorder of thyroid, unspecified; E53.8 Deficiency of other specified B group vitamins; Z72.89 Other problems related to lifestyle; Z11.3 Encounter for screening for infections with a predominantly sexual mode of transmission

== ENCOUNTER → 2024-03-16 | Outpatient (CLI) | payer MEDICARE, MEDICAID | LOC: M RAD 12:25 | PROVIDERS: ATTEND Student in an Organized Health Care Education/Training Program | DX: J15.1 Pneumonia due to Pseudomonas (principal) ==

== ENCOUNTER → 2024-03-22 | Outpatient (CLI) | payer MEDICARE, MEDICAID | LOC: M PLAIMG 10:35 | PROVIDERS: ATTEND Student in an Organized Health Care Education/Training Program | DX: J15.1 Pneumonia due to Pseudomonas (principal) ==

== ENCOUNTER → 2024-03-29 | Outpatient (REF) | payer MEDICARE, MEDICAID | LOC: EEVIPCON 16:39 → M LAB REF 16:39 | PROVIDERS: ATTEND Podiatrist Foot & Ankle Surgery | DX: E11.628 Type 2 diabetes mellitus with other skin complications (principal); L02.838 Carbuncle of other sites; L02.828 Furuncle of other sites ==

== ENCOUNTER → 2024-10-11 | Outpatient (REF) | payer MEDICARE, MEDICAID ==
[~2024-10-11] MED LIST changes: -LEVO750T14 PO; +LEVO75TAB PO
[2024-10-11 10:51] LABS: HEMOGLOBIN A1c 6.2 % (4.0-6.0)
[2024-10-11 10:52] LABS: BLOOD UREA NITROGEN 34 MG/DL (9-23); CALCIUM LEVEL 8.5 MG/DL (8.3-10.6); CARBON DIOXIDE LEVEL 27 MMOL/L (20-31); CHLORIDE LEVEL 104 MMOL/L (98-107); GLOMERULAR FILTRATION RATE > 60.0 (>35); GLUCOSE, FASTING 219 MG/DL (74-106); POTASSIUM SERUM 4.8 MMOL/L (3.5-5.1); SODIUM LEVEL 142 MMOL/L (136-145)
[2024-10-11 11:15] LABS: PROSTATIC SPECIFIC AG MONITOR 0.04 NG/ML (< 4.00)
== END ==
PROVIDERS: ATTEND Student in an Organized Health Care Education/Training Program
DX: E11.39 Type 2 diabetes mellitus with other diabetic ophthalmic complication (principal); N28.89 Other specified disorders of kidney and ureter; Z85.46 Personal history of malignant neoplasm of prostate; I10 Essential (primary) hypertension; K31.9 Disease of stomach and duodenum, unspecified; E78.5 Hyperlipidemia, unspecified; E11.22 Type 2 diabetes mellitus with diabetic chronic kidney disease; N18.9 Chronic kidney disease, unspecified

== ENCOUNTER → 2024-10-27 | Outpatient (REF) | payer MEDICARE, MEDICAID ==
[2024-10-27 09:37] LABS: BASO % 0.5 % (0.0-1.0); EOS % 0.7 % (0.0-3.0); HEMATOCRIT 31.7 % (42.0-52.0); HEMOGLOBIN 9.9 g/dl (13.5-17.5); LYMPH % 15.7 % (24.0-44.0); MEAN CORPUSCULAR HEMOGLOBIN 28.5 pg (27.0-33.0); MEAN CORPUSCULAR HGB CONC 31.2 g/dl (32.0-36.5); MEAN CORPUSCULAR VOLUME 91.4 fl (80.0-96.0); MONO # 0.8 10^3/uL (0.0-0.8); NEUTROPHILS # 4.2 10^3/uL (1.5-8.5); NEUTROPHILS % 69.1 % (36.0-66.0); PLATELET COUNT, AUTOMATED 139 10^3/uL (150-450); RED BLOOD COUNT 3.47 10^6/uL (4.30-6.10); WHITE BLOOD COUNT 6.1 10^3/uL (4.0-10.0)
[2024-10-27 09:56] LABS: ALBUMIN 3.2 G/DL (3.2-5.2); ALKALINE PHOSPHATASE 79 U/L (40-129); ALT/SGPT 17 U/L (7.0-40); AST/SGOT 9 U/L (<34); BILIRUBIN,TOTAL 1.6 MG/DL (0.3-1.2); BLOOD UREA NITROGEN 26 MG/DL (9-23); CALCIUM LEVEL 8.6 MG/DL (8.3-10.6); CARBON DIOXIDE LEVEL 28 MMOL/L (20-31); CHLORIDE LEVEL 102 MMOL/L (98-107); CHOLESTEROL LEVEL 86 MG/DL (<200); CHOLESTEROL RISK RATIO 3.09 (<5); CREATININE FOR GFR 1.15 MG/DL (0.70-1.30); GLOMERULAR FILTRATION RATE > 60.0 (>35); GLUCOSE, FASTING 148 MG/DL (74-106); HDL CHOLESTEROL 27.8 MG/DL (>40); LDL CHOLESTEROL 44.4 MG/DL (<100); NON-HDL-C 58.2 MG/DL; PHOSPHORUS LEVEL 3.9 MG/DL (2.4-5.1); POTASSIUM SERUM 5.1 MMOL/L (3.5-5.1); SODIUM LEVEL 142 MMOL/L (136-145); TOTAL PROTEIN 5.9 G/DL (5.7-8.2); TRIGLYCERIDES LEVEL 69 MG/DL (<150)
== END ==
PROVIDERS: ATTEND Student in an Organized Health Care Education/Training Program
DX: I11.0 Hypertensive heart disease with heart failure (principal); I50.9 Heart failure, unspecified; E78.00 Pure hypercholesterolemia, unspecified

== ENCOUNTER → 2024-11-01 | Outpatient (CLI) | payer MEDICARE, MEDICAID | LOC: M EKG 10:11 | PROVIDERS: ATTEND Registered Nurse | DX: I48.21 Permanent atrial fibrillation (principal) ==

== ENCOUNTER → 2025-01-12 | Outpatient (REF) | payer MEDICARE, MEDICAID ==
[~2025-01-12] MED LIST changes: -FLOM0.4C39 PO; +TAMS-18 PO
[2025-01-12 16:05] LABS: APPEARANCE, URINE HAZY (CLEAR); BACTERIA, URINE AUTO 1+ (NEGATIVE); BILIRUBIN, URINE AUTO NEGATIVE (NEGATIVE); BLOOD, URINE BLOOD 3+ (NEGATIVE); COLOR, URINE RED (YELLOW); GLUCOSE, URINE (UA) AUTO NEGATIVE (NEGATIVE); KETONE, URINE AUTO NEGATIVE (NEGATIVE); LEUKOCYTE ESTERASE, URINE AUTO TRACE (NEGATIVE); MUCUS, URINE SMALL (NEGATIVE); NITRITE, URINE AUTO NEGATIVE (NEGATIVE); PROTEIN, URINE AUTO 2+ mg/dL (NEGATIVE); RBC, URINE AUTO TNTC /HPF (0-3); SPECIFIC GRAVITY URINE AUTO 1.012 (1.002-1.035); SQUAMOUS EPITHELIAL CELL UR AU 0 /HPF (0-6); UROBILINOGEN, URINE AUTO 0.2 mg/dL (0.0-2.0); WBC, URINE AUTO 66 /HPF (0-3)
== END ==
LOC: M SMT 15:27
PROVIDERS: ATTEND Physician Assistant
DX: R30.0 Dysuria (principal)

== ENCOUNTER 2025-01-17 04:59 | Inpatient (IN) | payer MEDICARE, MEDICAID ==
[~2025-01-17] VITALS: Ht 177.8 cm; Wt 115.8 kg
[~2025-01-17 04:59] MED LIST changes: +DEBR6.5S4 AD; -DEBR6.5S4 AU; +METF-1113 PO; -METF-723 PO
[2025-01-17 06:09] LABS: BASO % 0.4 % (0.0-1.0); EOS % 0.4 % (0.0-3.0); HEMATOCRIT 29.7 % (42.0-52.0); HEMOGLOBIN 9.6 g/dl (13.5-17.5); LYMPH # 0.5 10^3/uL (1.5-5.0); LYMPH % 8.7 % (24.0-44.0); MEAN CORPUSCULAR HEMOGLOBIN 29.1 pg (27.0-33.0); MEAN CORPUSCULAR HGB CONC 32.3 g/dl (32.0-36.5); MONO # 0.6 10^3/uL (0.0-0.8); MONO % 11.1 % (2.0-8.0); NEUTROPHILS # 4.2 10^3/uL (1.5-8.5); NEUTROPHILS % 78.1 % (36.0-66.0); PLATELET COUNT, AUTOMATED 153 10^3/uL (150-450); WHITE BLOOD COUNT 5.4 10^3/uL (4.0-10.0)
[2025-01-17 06:22] LABS: BILIRUBIN,DIRECT 0.9 MG/DL (<0.4); BILIRUBIN,TOTAL 2.1 MG/DL (0.3-1.2); CALCIUM LEVEL 8.3 MG/DL (8.3-10.6); CREATININE FOR GFR 1.28 MG/DL (0.70-1.30); GLOMERULAR FILTRATION RATE 55.9 (>35); TOTAL PROTEIN 5.7 G/DL (5.7-8.2)
[2025-01-17 06:29] LABS: PROCALCITONIN 0.1 ng/ml
[2025-01-17] MEDS: FUROSEMIDE 100MG/10ML VIAL IV ONE (06:39)
[2025-01-17] MEDS: cefTRIAXone SOD 1 GM in DEXTROSE 5% (D5W) ADV/MINI-BAG 50 ML IV ONE (06:42)
[2025-01-17] MEDS: IPRATROPIUM 0.5MG/ALBUTEROL 2.5MG INH SOL UD 3ML NEB ONE (07:50)
[2025-01-17] MEDS: IPRATROPIUM 0.5MG/ALBUTEROL 2.5MG INH SOL UD 3ML NEB SCH (08:00)
[2025-01-17] MEDS ORDERED: PROP10TA56 PO (08:43)
[2025-01-17] MEDS ORDERED: MAGN400T2 PO (08:43)
[2025-01-17] MEDS ORDERED: ACET-683 PO (08:43)
[2025-01-17] MEDS ORDERED: SPIR-10 PO (08:43)
[2025-01-17] MEDS ORDERED: FURO40TA2 PO (08:43)
[2025-01-17] MEDS ORDERED: TAB-TAB3 PO (08:43)
[2025-01-17] MEDS ORDERED: PHEN26CR TOP (08:43)
[2025-01-17] MEDS ORDERED: ONDA-83 PO (08:43)
[2025-01-17] MEDS ORDERED: LEXA1TAB PO (08:43)
[2025-01-17] MEDS ORDERED: MENT7.6L4 PO (08:43)
[2025-01-17] MEDS ORDERED: REFR0.5D8 OU (08:43)
[2025-01-17] MEDS ORDERED: SENN-122 PO (08:43)
[2025-01-17] MEDS ORDERED: METF750T36 PO (08:43)
[2025-01-17] MEDS ORDERED: HOME MED LIST COMPLETE! XX SCH (08:45)
[2025-01-17] MEDS ORDERED: MIRALAX *UNIT DOSE* 17GM PACKET PO PRN (08:55)
[2025-01-17] MEDS ORDERED: IPRATROPIUM 0.5MG/ALBUTEROL 2.5MG INH SOL UD 3ML NEB PRN (08:55)
[2025-01-17] MEDS ORDERED: SENOKOT S TAB PO PRN (08:55)
[2025-01-17] MEDS: INSULIN LISPRO (NovoLOG) PER UNIT SC SCH ×2 (12:00→20:46)
[2025-01-17 12:05] VITALS: BP 142/70; TEMP 98.6; O2SAT 100
[2025-01-17] MEDS: POLYVINYL ALCOHOL OPHTH SOLN 15ML (LIQUITEARS) OU SCH (12:15)
[2025-01-17] MEDS: ESCITALOPRAM OXALATE 10 MG TAB PO SCH (12:28)
[2025-01-17] MEDS: APIXABAN 5 MG TAB PO SCH ×2 (12:28→20:45)
[2025-01-17] MEDS: ASCORBIC ACID 500 MG TAB PO SCH (12:28)
[2025-01-17] MEDS: OMEPRAZOLE 20MG CAP PO SCH (12:28)
[2025-01-17] MEDS: predniSONE 20 MG TAB PO SCH (12:28)
[2025-01-17] MEDS: ONDANSETRON 4MG TAB PO SCH (12:29)
[2025-01-17] MEDS: FERROUS SULFATE 325MG TAB PO SCH (12:29)
[2025-01-17] MEDS: MULTIVITAMINS/MINERALS THERAP 1 TAB PO SCH (12:29)
[2025-01-17] MEDS: CYANOCOBALAMIN 500 MCG TAB PO SCH (12:29)
[2025-01-17] MEDS: PROPRANOLOL 10 MG TAB PO SCH (12:40)
[2025-01-17] MEDS: POTASSIUM CHLORIDE 10MEQ SR TABLET PO SCH (12:49)
[2025-01-17] MEDS: NYSTATIN 100,000 UNITS/GM TOPICAL PWD 15GM TOP SCH (13:44)
[2025-01-17] MEDS ORDERED: DEXTROSE 50% 50ML SYRINGE IV PRN (13:55)
[2025-01-17] MEDS ORDERED: GLUCOSE 4 GM CHEW PO PRN (13:55)
[2025-01-17] MEDS ORDERED: GLUCAGON INJ 1MG VIAL SC PRN (13:55)
[2025-01-17 13:59] LABS: CALCIUM LEVEL 8.2 MG/DL (8.3-10.6); CREATININE FOR GFR 1.23 MG/DL (0.70-1.30); GLOMERULAR FILTRATION RATE 58.6 (>35); POTASSIUM SERUM 4.3 MMOL/L (3.5-5.1)
[2025-01-17 16:31] VITALS: BP 148/70; TEMP 98; O2SAT 95
[2025-01-17] MEDS: FUROSEMIDE 40MG/4ML VIAL IV SCH (17:23)
[2025-01-17] MEDS: AZITHROMYCIN 250MG TABLET PO SCH (17:24)
[2025-01-17] MEDS: BUDESONIDE 180MCG INHALER INH SCH (19:58)
[2025-01-17 20:10] VITALS: BP 107/59; TEMP 98.1; O2SAT 96
[2025-01-17] MEDS: MONTELUKAST 10 MG TAB PO SCH (20:45)
[2025-01-17] MEDS: GABAPENTIN 400MG CAP PO SCH (20:45)
[2025-01-17] MEDS: ATORVASTATIN 20 MG TAB PO SCH (20:45)
[2025-01-17] MEDS: ACETAMINOPHEN 500 MG TAB PO PRN (20:50)
[2025-01-17] MEDS: CARBAMIDE PEROXIDE 6.5% OTIC SOLN 15ML AD SCH (21:58)
[2025-01-18] VITALS (7 sets, daily range): BP systolic 113–133; BP diastolic 62–87; TEMP 97.2–98.6; O2SAT 95–99
[2025-01-18 05:51] LABS: HEMATOCRIT 28.3 % (42.0-52.0); HEMOGLOBIN 9.1 g/dl (13.5-17.5); MEAN CORPUSCULAR HEMOGLOBIN 28.7 pg (27.0-33.0); MEAN CORPUSCULAR HGB CONC 32.2 g/dl (32.0-36.5); MEAN CORPUSCULAR VOLUME 89.3 fl (80.0-96.0); PLATELET COUNT, AUTOMATED 128 10^3/uL (150-450); RED BLOOD COUNT 3.17 10^6/uL (4.30-6.10)
[2025-01-18 06:26] LABS: ALBUMIN 2.9 G/DL (3.2-5.2); BILIRUBIN,TOTAL 1.6 MG/DL (0.3-1.2); CALCIUM LEVEL 8.3 MG/DL (8.3-10.6); CREATININE FOR GFR 1.23 MG/DL (0.70-1.30); GLOMERULAR FILTRATION RATE 58.6 (>35); POTASSIUM SERUM 4.3 MMOL/L (3.5-5.1); TOTAL PROTEIN 5.6 G/DL (5.7-8.2)
[2025-01-18 07:10] LABS: VENOUS BASE EXCESS 3.1 (-2.0-2.0); VENOUS HCO3 29.9 MMOL/L (23.0-27.0); VENOUS O2 SATURATION 86.7 % (60.0-80.0); VENOUS PARTIAL PRESSURE CO2 56.9 mmHg (38.0-50.0); VENOUS PARTIAL PRESSURE O2 57.1 mmHg (30.0-50.0); VENOUS PH 7.338 UNITS (7.330-7.430); VENOUS TOTAL CO2 31.6 MMOL/L (24.0-28.0)
[2025-01-18] MEDS: CEFDINIR 300 MG CAP PO SCH (08:03)
[2025-01-19 03:39] VITALS: BP 125/64; TEMP 97.7; O2SAT 98
[2025-01-19 05:23] LABS: BASO % 0.4 % (0.0-1.0); EOS % 0.4 % (0.0-3.0); HEMATOCRIT 29.8 % (42.0-52.0); HEMOGLOBIN 9.5 g/dl (13.5-17.5); LYMPH # 0.6 10^3/uL (1.5-5.0); LYMPH % 11.2 % (24.0-44.0); MEAN CORPUSCULAR HEMOGLOBIN 28.6 pg (27.0-33.0); MEAN CORPUSCULAR HGB CONC 31.9 g/dl (32.0-36.5); MEAN CORPUSCULAR VOLUME 89.8 fl (80.0-96.0); MONO # 0.6 10^3/uL (0.0-0.8); MONO % 10.8 % (2.0-8.0); NEUTROPHILS # 4.1 10^3/uL (1.5-8.5); NEUTROPHILS % 75.7 % (36.0-66.0); PLATELET COUNT, AUTOMATED 144 10^3/uL (150-450); RED BLOOD COUNT 3.32 10^6/uL (4.30-6.10); WHITE BLOOD COUNT 5.4 10^3/uL (4.0-10.0)
[2025-01-19 05:47] LABS: CALCIUM LEVEL 8.2 MG/DL (8.3-10.6); CREATININE FOR GFR 1.25 MG/DL (0.70-1.30); GLOMERULAR FILTRATION RATE 57.5 (>35); POTASSIUM SERUM 4.5 MMOL/L (3.5-5.1)
[2025-01-19 08:11] VITALS: BP 114/58; TEMP 97.3; O2SAT 97
[2025-01-19 09:00] VITALS: BP 114/58
[2025-01-19] MEDS ORDERED: PRED10TA2 PO (10:42)
[2025-01-19] MEDS ORDERED: CEFD1CAP9 PO (10:42)
[2025-01-19 12:00] VITALS: BP 151/71; TEMP 97.7; O2SAT 96
== END 2025-01-19 12:34 | DRG 698 ==
LOC: M ED 04:59 → M ED INP 08:51 → M PCU 11:45
PROVIDERS: ADMIT Internal Medicine; ATTEND Internal Medicine
PROC: B246ZZZ Ultrasonography of Right and Left Heart (ICD-10-PCS; principal; 2025-01-18)
DX: T83.511A Infection and inflammatory reaction due to indwelling urethral catheter, initial encounter (principal); I50.33 Acute on chronic diastolic (congestive) heart failure; J44.1 Chronic obstructive pulmonary disease with (acute) exacerbation; Z66 Do not resuscitate; K21.9 Gastro-esophageal reflux disease without esophagitis; I11.0 Hypertensive heart disease with heart failure; E11.9 Type 2 diabetes mellitus without complications; I48.91 Unspecified atrial fibrillation; G25.0 Essential tremor; F39 Unspecified mood [affective] disorder; R33.9 Retention of urine, unspecified; N52.9 Male erectile dysfunction, unspecified; B96.1 Klebsiella pneumoniae [K. pneumoniae] as the cause of diseases classified elsewhere; N39.0 Urinary tract infection, site not specified; Z86.73 Personal history of transient ischemic attack (TIA), and cerebral infarction without residual deficits; Z85.46 Personal history of malignant neoplasm of prostate; Z92.3 Personal history of irradiation; I08.1 Rheumatic disorders of both mitral and tricuspid valves; K59.09 Other constipation; Z79.01 Long term (current) use of anticoagulants; Z79.84 Long term (current) use of oral hypoglycemic drugs; Z79.899 Other long term (current) drug therapy; Z88.5 Allergy status to narcotic agent; Z88.8 Allergy status to other drugs, medicaments and biological substances

== ENCOUNTER 2025-01-21 06:56 | Outpatient (CLI) | payer MEDICARE, MEDICAID ==
[~2025-01-21] VITALS: Ht 179.1 cm; Wt 118.8 kg
[~2025-01-21 06:56] MED LIST changes: +ACET-683 PO; +CEFD1CAP9 PO; +FURO40TA2 PO; +LEXA1TAB PO; +MENT7.6L4 PO; +METF750T36 PO; +ONDA-83 PO; +PHEN26CR TOP; +PROP10TA56 PO; +REFR0.5D8 OU; +SENN-122 PO; +TAB-TAB3 PO
[2025-01-21] MEDS ORDERED: ALBUTEROL SULFATE 2.5MG/0.5ML INH CONCENTRATE NEB SOLN INH PRN (07:01)
[2025-01-21] MEDS ORDERED: diphenhydrAMINE 50MG/ML VIAL IV PRN (07:01)
[2025-01-21] MEDS ORDERED: methylPREDNISolone 125MG 2ML VIAL IV PRN (07:01)
[2025-01-21] MEDS ORDERED: EPINEPHrine INJ 1 MG/ML 1ML AMP IM PRN (07:01)
[2025-01-21 07:30] VITALS: BP 145/83; O2SAT 94
[2025-01-21] MEDS: IRON SUCROSE 500 MG in NS 250 ML OVER 4 HRS IV ONE (08:01)
[2025-01-21 09:45] VITALS: BP 115/56; O2SAT 94
[2025-01-21 12:25] VITALS: BP 129/73; O2SAT 95
== END 2025-01-21 12:25 | disposition home or self-care (01) ==
LOC: M INFU 06:56
PROVIDERS: ATTEND Student in an Organized Health Care Education/Training Program
DX: D50.9 Iron deficiency anemia, unspecified (principal); Z88.5 Allergy status to narcotic agent
CPT/HCPCS: 96365; 96366; J1756

== ENCOUNTER 2025-03-08 11:01 | Emergency (ER) | payer MEDICARE, MEDICAID ==
[~2025-03-08] VITALS: Ht 180.3 cm; Wt 118.4 kg
[2025-03-08 11:40] LABS: BASO # 0.0 10^3/uL (0.0-0.2); BASO % 0.3 % (0.0-1.0); EOS # 0.0 10^3/uL (0.0-0.5); EOS % 0.2 % (0.0-3.0); LYMPH # 0.6 10^3/uL (1.5-5.0); LYMPH % 9.4 % (24.0-44.0); MONO # 0.8 10^3/uL (0.0-0.8); MONO % 12.6 % (2.0-8.0); NEUTROPHILS # 4.9 10^3/uL (1.5-8.5); NEUTROPHILS % 76.4 % (36.0-66.0); PLATELET COUNT, AUTOMATED 138 10^3/uL (150-450)
[2025-03-08 11:52] LABS: INR 1.67
[2025-03-08 12:03] LABS: KETONE, URINE AUTO RFX NEGATIVE (NEGATIVE); LEUKOCYTE ESTERASE UR AUTO RFX 2+ (NEGATIVE); MUCUS, URINE RFX SMALL (NEGATIVE); NITRITE, URINE AUTO RFX NEGATIVE (NEGATIVE); RBC, URINE AUTO RFX 7 /HPF (0-3); SQUAM EPITHELIAL CELL UR AURFX 0 /HPF (0-6); WBC, URINE AUTO RFX 18 /HPF (0-3)
[2025-03-08 12:09] LABS: CK-MB VALUE MASS 1.4 NG/ML (<3.6)
[2025-03-08 12:12] LABS: CPK CREATINE PHOSPHOKINASE 26.0 U/L (46-171); MB/CK RELATIVE INDEX 5.38 (< OR =4)
[2025-03-08 12:13] LABS: ALT/SGPT 15.0 U/L (7.0-40); AST/SGOT 14.0 U/L (<34); CALCIUM LEVEL 7.7 MG/DL (8.3-10.6); CARBON DIOXIDE LEVEL 28.0 MMOL/L (20-31); CHLORIDE LEVEL 100.0 MMOL/L (98-107); CREATININE FOR GFR 1.22 MG/DL (0.70-1.30); GLOMERULAR FILTRATION RATE 59.2 (>35); POTASSIUM SERUM 5.0 MMOL/L (3.5-5.1); SODIUM LEVEL 139.0 MMOL/L (136-145)
[2025-03-08 13:36] LABS: CK-MB VALUE MASS 1.0 NG/ML (<3.6)
[2025-03-08 13:38] LABS: CPK CREATINE PHOSPHOKINASE < 15 U/L (46-171); MB/CK RELATIVE INDEX 0.00 (< OR =4)
[2025-03-08] MEDS ORDERED: ISOVUE-370 76% 100 ML VIAL As Ordered ONE (14:19)
[2025-03-08] MEDS ORDERED: [UNRECOGNIZED DRUG - CODE] TOP (15:36)
[2025-03-08] MEDS ORDERED: HOME MED LIST COMPLETE! XX SCH (15:40)
[2025-03-08] MEDS ORDERED: CEFD300C PO (17:14)
[2025-03-08 17:15] VITALS: BP 133/67; TEMP 97.7; O2SAT 98
== END 2025-03-08 18:27 | disposition home or self-care (01) ==
LOC: M ED 11:01 → EDBD 11:01 → M ED 18:27
DX: N39.0 Urinary tract infection, site not specified (principal); N28.9 Disorder of kidney and ureter, unspecified; I48.91 Unspecified atrial fibrillation; I50.9 Heart failure, unspecified; E11.9 Type 2 diabetes mellitus without complications; I10 Essential (primary) hypertension; J44.9 Chronic obstructive pulmonary disease, unspecified; D64.9 Anemia, unspecified; Z86.73 Personal history of transient ischemic attack (TIA), and cerebral infarction without residual deficits; Z85.46 Personal history of malignant neoplasm of prostate; Z92.3 Personal history of irradiation; K74.60 Unspecified cirrhosis of liver; R16.1 Splenomegaly, not elsewhere classified; K57.30 Diverticulosis of large intestine without perforation or abscess without bleeding; N20.0 Calculus of kidney; I51.7 Cardiomegaly; Z79.01 Long term (current) use of anticoagulants; Z79.899 Other long term (current) drug therapy; Z88.5 Allergy status to narcotic agent
CPT/HCPCS: 51702; 71045; 71275; 74177; 80048; 80076; 81001; 82550; 82553; 83690; 83880; 84443; 84484; 85025; 85610; 86850; 86900; 86901; 87088; 87186; 93005; 93041; 94760; 99285; Q9967

== ENCOUNTER → 2025-03-23 | Outpatient (REF) | payer MEDICARE, MEDICAID ==
[~2025-03-23] MED LIST changes: +CEFD300C PO; +[UNRECOGNIZED DRUG - CODE] TOP
[2025-03-23 15:51] LABS: APPEARANCE, URINE HAZY (CLEAR); BACTERIA, URINE AUTO 1+ (NEGATIVE); BILIRUBIN, URINE AUTO NEGATIVE (NEGATIVE); BLOOD, URINE BLOOD 1+ (NEGATIVE); GLUCOSE, URINE (UA) AUTO NEGATIVE (NEGATIVE); KETONE, URINE AUTO NEGATIVE (NEGATIVE); LEUKOCYTE ESTERASE, URINE AUTO 3+ (NEGATIVE); NITRITE, URINE AUTO NEGATIVE (NEGATIVE); PROTEIN, URINE AUTO 1+ mg/dL (NEGATIVE); RBC, URINE AUTO 9 /HPF (0-3); SPECIFIC GRAVITY URINE AUTO 1.008 (1.002-1.035); SQUAMOUS EPITHELIAL CELL UR AU 0 /HPF (0-6); UROBILINOGEN, URINE AUTO 0.2 mg/dL (0.0-2.0); WBC, URINE AUTO 34 /HPF (0-3)
== END ==
LOC: M SFHCPLAZ 14:56
PROVIDERS: ATTEND Student in an Organized Health Care Education/Training Program
DX: N39.0 Urinary tract infection, site not specified (principal)

== ENCOUNTER → 2025-04-20 | Outpatient (CLI) | payer MEDICARE, MEDICAID ==
[2025-04-20 17:50] LABS: PLATELET COUNT, AUTOMATED 171 10^3/uL (150-450)
[2025-04-20 18:07] LABS: ALT/SGPT 20.0 U/L (7.0-40); AST/SGOT 18.0 U/L (<34); CALCIUM LEVEL 8.9 MG/DL (8.3-10.6); CARBON DIOXIDE LEVEL 31.0 MMOL/L (20-31); CHLORIDE LEVEL 98.0 MMOL/L (98-107); CREATININE FOR GFR 1.23 MG/DL (0.70-1.30); GLOMERULAR FILTRATION RATE 58.6 (>35); POTASSIUM SERUM 4.6 MMOL/L (3.5-5.1); SODIUM LEVEL 139.0 MMOL/L (136-145)
== END ==
LOC: M PLALAB 16:17
DX: R19.7 Diarrhea, unspecified (principal)

== ENCOUNTER → 2025-04-21 | Outpatient (REF) | payer MEDICARE, MEDICAID | DX: R19.7 Diarrhea, unspecified (principal); A08.4 Viral intestinal infection, unspecified ==

== ENCOUNTER 2025-05-15 18:23 | Emergency (ER) | payer MEDICARE, MEDICAID ==
[~2025-05-15] VITALS: Ht 177.8 cm; Wt 97.0 kg
[2025-05-15 19:31] VITALS: BP 147/75; TEMP 98
[2025-05-15 20:46] VITALS: O2SAT 93
== END 2025-05-15 20:52 | disposition home or self-care (01) ==
LOC: M ED 18:23
DX: S00.03XA Contusion of scalp, initial encounter (principal); S20.224A Contusion of middle back wall of thorax, initial encounter; X58.XXXA Exposure to other specified factors, initial encounter; Y92.009 Unspecified place in unspecified non-institutional (private) residence as the place of occurrence of the external cause; Y93.89 Activity, other specified; Y99.9 Unspecified external cause status; I48.91 Unspecified atrial fibrillation; E11.9 Type 2 diabetes mellitus without complications; I10 Essential (primary) hypertension; J44.9 Chronic obstructive pulmonary disease, unspecified; K21.9 Gastro-esophageal reflux disease without esophagitis; Z85.46 Personal history of malignant neoplasm of prostate; Z86.73 Personal history of transient ischemic attack (TIA), and cerebral infarction without residual deficits; Z87.442 Personal history of urinary calculi; M47.896 Other spondylosis, lumbar region; G31.9 Degenerative disease of nervous system, unspecified; M43.12 Spondylolisthesis, cervical region; Z79.01 Long term (current) use of anticoagulants; Z79.899 Other long term (current) drug therapy; Z88.5 Allergy status to narcotic agent

== ENCOUNTER → 2025-05-16 | Outpatient (CLI) | payer MEDICARE, MEDICAID | LOC: M RAD 11:47 | PROVIDERS: ATTEND Emergency Medicine | DX: D49.512 Neoplasm of unspecified behavior of left kidney (principal) ==

== ENCOUNTER → 2025-06-01 | Outpatient (REF) | payer MEDICARE, MEDICAID ==
[~2025-06-01] MED LIST changes: -METF-1113 PO; +METF-1201 PO
[2025-06-01 14:38] LABS: APPEARANCE, URINE CLOUDY (CLEAR); BACTERIA, URINE AUTO 2+ (NEGATIVE); BILIRUBIN, URINE AUTO NEGATIVE (NEGATIVE); BLOOD, URINE BLOOD 3+ (NEGATIVE); GLUCOSE, URINE (UA) AUTO NEGATIVE (NEGATIVE); KETONE, URINE AUTO NEGATIVE (NEGATIVE); LEUKOCYTE ESTERASE, URINE AUTO 3+ (NEGATIVE); MUCUS, URINE SMALL (NEGATIVE); NITRITE, URINE AUTO NEGATIVE (NEGATIVE); PROTEIN, URINE AUTO 2+ mg/dL (NEGATIVE); RBC, URINE AUTO 111 /HPF (0-3); SPECIFIC GRAVITY URINE AUTO 1.017 (1.002-1.035); SQUAMOUS EPITHELIAL CELL UR AU 0 /HPF (0-6); UROBILINOGEN, URINE AUTO 2.0 mg/dL (0.0-2.0); WBC, URINE AUTO TNTC /HPF (0-3)
== END ==
PROVIDERS: ATTEND Family Medicine
DX: R41.0 Disorientation, unspecified (principal); Z96.0 Presence of urogenital implants

== ENCOUNTER → 2025-06-02 | Outpatient (REF) | payer MEDICARE, MEDICAID ==
[2025-06-02 16:02] LABS: APPEARANCE, URINE MANUAL CLOUDY (CLEAR); COLOR, URINE MANUAL LT YELLOW (YELLOW)
[2025-06-02 16:04] LABS: BILIRUBIN, URINE MANUAL NEGATIVE (NEGATIVE); BLOOD URINE MANUAL POSITIVE (NEGATIVE); GLUCOSE, URINE (UA) MANUAL NEGATIVE (NEGATIVE); KETONE, URINE MANUAL NEGATIVE (NEGATIVE); LEUKOCYTE ESTERASE, URINE MAN POSITIVE (NEGATIVE); NITRITE, URINE MANUAL NEGATIVE (NEGATIVE); PH,URINE MAN 5.0 UNITS (5.0 - 7.0); PROTEIN, URINE MANUAL TRACE mg/dL (NEGATIVE); SPECIFIC GRAVITY,URINE MANUAL 1.015 (1.002-1.035); UROBILINOGEN, URINE MANUAL NORMAL (NORMAL)
[2025-06-02 16:12] LABS: BACTERIA, URINE SMALL AMOUNT; HYALINE CAST, URINE NONE SEEN /lpf (0-1); RBC, URINE 15-20 /hpf (0-3); SQUAMOUS EPITHELIAL CELL URINE SMALL AMOUNT /hpf (SMALL AMT); TRANSITIONAL EPI CELLS, URINE SMALL AMOUNT /hpf; WBC, URINE TNTC /hpf (0-3)
[2025-06-02 16:14] LABS: MUCUS, URINE SMALL AMOUNT (NEGATIVE)
== END ==
LOC: M SMT 15:02
PROVIDERS: ATTEND Physician Assistant
DX: R39.9 Unspecified symptoms and signs involving the genitourinary system (principal)

== ENCOUNTER 2025-06-22 13:57 | Emergency (ER) | payer MEDICARE, MEDICAID ==
[~2025-06-22] VITALS: Ht 179.1 cm; Wt 115.8 kg
[2025-06-22 14:29] LABS: BASO # 0.0 10^3/uL (0.0-0.2); BASO % 0.2 % (0.0-1.0); EOS # 0.0 10^3/uL (0.0-0.5); EOS % 0.3 % (0.0-3.0); LYMPH # 0.5 10^3/uL (1.5-5.0); LYMPH % 9.4 % (24.0-44.0); MONO # 0.9 10^3/uL (0.0-0.8); MONO % 15.4 % (2.0-8.0); NEUTROPHILS # 4.2 10^3/uL (1.5-8.5); NEUTROPHILS % 73.7 % (36.0-66.0); PLATELET COUNT, AUTOMATED 164 10^3/uL (150-450)
[2025-06-22 14:56] LABS: ALT/SGPT 14.0 U/L (7.0-40); AST/SGOT 18.0 U/L (<34); CALCIUM LEVEL 8.5 MG/DL (8.3-10.6); CARBON DIOXIDE LEVEL 28.0 MMOL/L (20-31); CHLORIDE LEVEL 100.0 MMOL/L (98-107); CREATININE FOR GFR 1.44 MG/DL (0.70-1.30); GLOMERULAR FILTRATION RATE 48.5 (>35); POTASSIUM SERUM 4.4 MMOL/L (3.5-5.1); SODIUM LEVEL 139.0 MMOL/L (136-145)
[2025-06-22 15:03] LABS: D-DIMER QUANT 3.72 ug/mL (<0.5); INR 1.74
[2025-06-22] MEDS ORDERED: ISOVUE-370 76% 100 ML VIAL As Ordered ONE (17:58)
[2025-06-22] MEDS: IPRATROPIUM 0.5 MG/ALBUTEROL 2.5 MG INH SOL UD 3 ML NEB PRN (17:59)
[2025-06-22 18:12] LABS: CK-MB VALUE MASS 2.5 NG/ML (<3.6)
[2025-06-22 18:14] LABS: CPK CREATINE PHOSPHOKINASE 34.0 U/L (46-171); MB/CK RELATIVE INDEX 7.35 (< OR =4)
[2025-06-22 18:26] LABS: ABG BASE EXCESS 1.0 (-2.0-2.0); ABG HCO3 25.1 MMOL/L (22.0-26.0); ABG O2 SATURATION 96.5 % (95.0-99.0); ABG PARTIAL PRESSURE CO2 38.2 mmHg (35.0-45.0); ABG PARTIAL PRESSURE O2 91.4 mmHg (75.0-100.0); ABG STANDARD HCO3 25.3 MMOL/L. (22.0-26.0); ABG TOTAL CO2 26.3 MMOL/L (23.0-31.0); ABG pH (ARTERIAL) 7.436 UNITS (7.350-7.450)
[2025-06-22 18:52] LABS: CK-MB VALUE MASS 2.5 NG/ML (<3.6)
[2025-06-22 18:54] LABS: CPK CREATINE PHOSPHOKINASE 33.0 U/L (46-171); MB/CK RELATIVE INDEX 7.57 (< OR =4)
[2025-06-22] MEDS ORDERED: AZIT-12 PO (21:16)
[2025-06-22] MEDS ORDERED: PRED20TA PO (21:16)
[2025-06-22] MEDS: AZITHROMYCIN 250 MG TABLET PO ONE (21:46)
[2025-06-22 21:56] VITALS: O2SAT 95
[2025-06-22 23:40] VITALS: BP 106/53; TEMP 97.2; O2SAT 93
== END 2025-06-22 23:40 | disposition home or self-care (01) ==
LOC: EDBD 13:57 → M ED 13:57
DX: J44.1 Chronic obstructive pulmonary disease with (acute) exacerbation (principal); D64.9 Anemia, unspecified; B34.8 Other viral infections of unspecified site; M25.532 Pain in left wrist; E11.9 Type 2 diabetes mellitus without complications; I48.91 Unspecified atrial fibrillation; I10 Essential (primary) hypertension; G47.33 Obstructive sleep apnea (adult) (pediatric); C61 Malignant neoplasm of prostate; Z86.73 Personal history of transient ischemic attack (TIA), and cerebral infarction without residual deficits; Z88.5 Allergy status to narcotic agent; Z79.01 Long term (current) use of anticoagulants; R94.31 Abnormal electrocardiogram [ECG] [EKG]; M19.032 Primary osteoarthritis, left wrist; R91.8 Other nonspecific abnormal finding of lung field; I25.10 Atherosclerotic heart disease of native coronary artery without angina pectoris; Z95.5 Presence of coronary angioplasty implant and graft; N62 Hypertrophy of breast; K76.89 Other specified diseases of liver; I28.8 Other diseases of pulmonary vessels; I77.810 Thoracic aortic ectasia; Z79.899 Other long term (current) drug therapy
CPT/HCPCS: 36415; 36600; 71045; 71275; 73110; 80048; 80076; 82550; 82553; 82803; 83880; 84484; 85025; 85379; 85610; 87040; 87486; 87581; 87633; 87798; 93005; 93041; 93971; 94640; 94760; 99285; Q9967

== ENCOUNTER 2025-06-24 13:18 | Emergency (ER) | payer MEDICARE, MEDICAID ==
[~2025-06-24 13:18] MED LIST changes: +AZIT-12 PO
[2025-06-24 13:37] VITALS: TEMP 96.8
[2025-06-24 14:11] LABS: BASO # 0.0 10^3/uL (0.0-0.2); BASO % 0.2 % (0.0-1.0); EOS # 0.0 10^3/uL (0.0-0.5); EOS % 0.0 % (0.0-3.0); LYMPH # 0.4 10^3/uL (1.5-5.0); LYMPH % 5.6 % (24.0-44.0); MONO # 0.6 10^3/uL (0.0-0.8); MONO % 8.7 % (2.0-8.0); NEUTROPHILS # 5.4 10^3/uL (1.5-8.5); NEUTROPHILS % 84.3 % (36.0-66.0); PLATELET COUNT, AUTOMATED 175 10^3/uL (150-450)
[2025-06-24] MEDS: PANTOPRAZOLE 40MG VIAL IV ONE (14:17)
[2025-06-24] MEDS: OCTREOTIDE ACETATE 100 MCG/ML VIAL **IV ADMINISTRATION ONLY IV ONE (14:21)
[2025-06-24 14:26] LABS: INR 1.76
[2025-06-24 14:31] LABS: ALT/SGPT 17.0 U/L (7.0-40); AST/SGOT 18.0 U/L (<34); CALCIUM LEVEL 8.5 MG/DL (8.3-10.6); CARBON DIOXIDE LEVEL 26.0 MMOL/L (20-31); CHLORIDE LEVEL 101.0 MMOL/L (98-107); CREATININE FOR GFR 1.46 MG/DL (0.70-1.30); GLOMERULAR FILTRATION RATE 47.7 (>35); POTASSIUM SERUM 4.4 MMOL/L (3.5-5.1); SODIUM LEVEL 140.0 MMOL/L (136-145)
[2025-06-24] MEDS ORDERED: ISOVUE-370 76% 100 ML VIAL As Ordered ONE (14:54)
[2025-06-24] MEDS: PANTOPRAZOLE SODIUM 40 MG in DEXTROSE 5% (D5W) ADV/MINI-BAG 50 ML IV SCH (17:34)
[2025-06-24] MEDS: cefTRIAXone SOD 1 GM in DEXTROSE 5% (D5W) ADV/MINI-BAG 50 ML IV ONE (17:34)
[2025-06-24] MEDS: OCTREOTIDE ACETATE 1,200 MCG in NS 238.8 ML IV SCH (17:43)
[2025-06-24] MEDS ORDERED: FLUT1BLS3 IH (20:14)
[2025-06-24] MEDS ORDERED: EQ A1CAP PO (20:21)
[2025-06-24] MEDS ORDERED: HOME MED LIST COMPLETE! XX SCH (20:25)
[2025-06-24] MEDS ORDERED: ACETAMINOPHEN 325 MG TAB PO PRN (23:40)
[2025-06-24] MEDS ORDERED: LOPERAMIDE 2 MG CAPLET PO PRN (23:40)
[2025-06-24] MEDS ORDERED: SENNOSIDES/DOCUSATE SODIUM 8.6 MG/50MG TAB PO PRN (23:40)
[2025-06-25] MEDS: POTASSIUM CHLORIDE 10MEQ SR TABLET PO SCH (01:13)
[2025-06-25] MEDS: MONTELUKAST 10 MG TAB PO SCH (01:13)
[2025-06-25] MEDS: ATORVASTATIN 20 MG TAB PO SCH (01:13)
[2025-06-25 01:14] VITALS: BP 115/67
[2025-06-25] MEDS: PROPRANOLOL 10 MG TAB PO SCH (01:14)
[2025-06-25] MEDS: NS (Normal Saline) 0.9% 1,000 ML IV SCH (01:19)
[2025-06-25] MEDS: CARBAMIDE PEROXIDE 6.5% OTIC SOLN 15 ML AD SCH (01:21)
[2025-06-25] MEDS: POLYVINYL ALCOHOL OPHTH SOLN 15ML (LIQUITEARS) OU SCH (01:22)
[2025-06-25] MEDS: IPRATROPIUM 0.5 MG/ALBUTEROL 2.5 MG INH SOL UD 3 ML NEB SCH (02:04)
[2025-06-25] MEDS ORDERED: NS (Normal Saline) 0.9% 1,000 ML IV SCH (04:58)
[2025-06-25 07:01] VITALS: BP 95/60
[2025-06-25 07:46] VITALS: O2SAT 93
[2025-06-25] MEDS ORDERED: MAGNESIUM OXIDE 400 MG TAB PO SCH (09:00)
[2025-06-25] MEDS ORDERED: ESCITALOPRAM OXALATE 10 MG TABLET PO SCH (09:00)
[2025-06-25] MEDS ORDERED: MIRALAX *UNIT DOSE* 17 GM PACKET PO SCH (09:00)
[2025-06-25] MEDS ORDERED: CYANOCOBALAMIN 500 MCG TAB PO SCH (09:00)
[2025-06-25] MEDS ORDERED: ONDANSETRON 4MG TAB PO SCH (09:00)
[2025-06-25] MEDS ORDERED: FERROUS SULFATE 325 MG TAB PO SCH (09:00)
[2025-06-25] MEDS ORDERED: SPIRONOLACTONE 25 MG TAB PO SCH (09:00)
[2025-06-25] MEDS ORDERED: predniSONE 20 MG TAB PO SCH (09:00)
[2025-06-25] MEDS ORDERED: OMEPRAZOLE 20MG CAP PO SCH (09:00)
[2025-06-25] MEDS ORDERED: FUROSEMIDE 40 MG TAB PO SCH (09:00)
[2025-06-25] MEDS ORDERED: MULTIVITAMINS/MINERALS THERAP 1 TAB PO SCH (09:00)
== END 2025-06-25 08:00 | disposition short-term general hospital (02) ==
LOC: EDBD 13:18 → M ED 13:18
DX: K92.2 Gastrointestinal hemorrhage, unspecified (principal); R93.421 Abnormal radiologic findings on diagnostic imaging of right kidney; K57.30 Diverticulosis of large intestine without perforation or abscess without bleeding; K74.60 Unspecified cirrhosis of liver; I48.91 Unspecified atrial fibrillation; E11.9 Type 2 diabetes mellitus without complications; I10 Essential (primary) hypertension; J44.9 Chronic obstructive pulmonary disease, unspecified; D64.9 Anemia, unspecified; M19.90 Unspecified osteoarthritis, unspecified site; G25.0 Essential tremor; Z86.73 Personal history of transient ischemic attack (TIA), and cerebral infarction without residual deficits; Z85.46 Personal history of malignant neoplasm of prostate; Z79.01 Long term (current) use of anticoagulants; Z79.84 Long term (current) use of oral hypoglycemic drugs; Z79.899 Other long term (current) drug therapy; Z88.5 Allergy status to narcotic agent
CPT/HCPCS: 74174; 80047; 80048; 80076; 85014; 85018; 85025; 85610; 85730; 86850; 86900; 86901; 93041; 94640; 96365; 96366; 96375; 99285; J0696; J2354; J2470; Q9967

== ENCOUNTER 2025-07-09 11:18 | Emergency (ER) | payer MEDICAID, MEDICARE, OTHER ==
[~2025-07-09] VITALS: Ht 177.8 cm; Wt 113.6 kg
[~2025-07-09 11:18] MED LIST changes: +EQ A1CAP PO; +FLUT1BLS3 IH
[2025-07-09 11:42] LABS: SP GRAVITY,URINE MANUAL REFLEX 1.010 (1.002-1.035)
[2025-07-09 11:43] LABS: KETONE, URINE MANUAL REFLEX OBSCURED mg/dL (NEGATIVE); NITRITE, URINE MANUAL RFX OBSCURED (NEGATIVE); PROTEIN, URINE MANUAL REFLEX 3+ mg/dL (NEGATIVE); UROBILINOGEN, UA MANUAL REFLEX OBSCURED mg/dl (NORMAL)
[2025-07-09 11:48] LABS: BASO # 0.0 10^3/uL (0.0-0.2); BASO % 0.4 % (0.0-1.0); EOS # 0.0 10^3/uL (0.0-0.5); EOS % 0.1 % (0.0-3.0); LYMPH # 0.5 10^3/uL (1.5-5.0); LYMPH % 7.6 % (24.0-44.0); MONO # 0.9 10^3/uL (0.0-0.8); MONO % 12.7 % (2.0-8.0); NEUTROPHILS # 5.3 10^3/uL (1.5-8.5); NEUTROPHILS % 77.6 % (36.0-66.0); PLATELET COUNT, AUTOMATED 189 10^3/uL (150-450)
[2025-07-09 11:49] LABS: HYALINE CAST, URINE RFX NONE SEEN /lpf (0-1); MICROSCOPIC EXAM RFX PERFORMED; RBC, URINE MAN REFLEX TNTC /hpf (0-3); SQUAMOUS EPITHELIAL URINE RFX NONE SEEN /hpf (SMALL AMT)
[2025-07-09 12:09] LABS: INR 1.45
[2025-07-09 12:17] LABS: ALT/SGPT 25.0 U/L (7.0-40); AST/SGOT 19.0 U/L (<34); CALCIUM LEVEL 8.4 MG/DL (8.3-10.6); CARBON DIOXIDE LEVEL 31.0 MMOL/L (20-31); CHLORIDE LEVEL 98.0 MMOL/L (98-107); CREATININE FOR GFR 1.09 MG/DL (0.70-1.30); GLOMERULAR FILTRATION RATE 67.8 (>35); POTASSIUM SERUM 4.7 MMOL/L (3.5-5.1); SODIUM LEVEL 137.0 MMOL/L (136-145)
[2025-07-09 15:00] VITALS: BP 129/61; TEMP 97.6; O2SAT 100
== END 2025-07-09 15:05 | disposition home or self-care (01) ==
LOC: M ED 11:18 → EDBD 11:18 → M ED 15:05
DX: R31.9 Hematuria, unspecified (principal); R91.8 Other nonspecific abnormal finding of lung field; N20.0 Calculus of kidney; I48.91 Unspecified atrial fibrillation; I10 Essential (primary) hypertension; E11.9 Type 2 diabetes mellitus without complications; Z87.19 Personal history of other diseases of the digestive system; J44.9 Chronic obstructive pulmonary disease, unspecified; Z85.46 Personal history of malignant neoplasm of prostate; Z92.3 Personal history of irradiation; Z79.01 Long term (current) use of anticoagulants; Z79.84 Long term (current) use of oral hypoglycemic drugs; Z79.899 Other long term (current) drug therapy; Z88.5 Allergy status to narcotic agent

== ENCOUNTER → 2025-07-11 | Outpatient (REF) | payer MEDICARE, MEDICAID ==
[2025-07-11 12:29] LABS: PLATELET COUNT, AUTOMATED 159 10^3/uL (150-450)
[2025-07-11 13:02] LABS: CALCIUM LEVEL 8.5 MG/DL (8.3-10.6); CARBON DIOXIDE LEVEL 31.0 MMOL/L (20-31); CHLORIDE LEVEL 95.0 MMOL/L (98-107); CREATININE FOR GFR 1.03 MG/DL (0.70-1.30); GLOMERULAR FILTRATION RATE 72.5 (>35); POTASSIUM SERUM 4.3 MMOL/L (3.5-5.1); SODIUM LEVEL 135.0 MMOL/L (136-145)
== END ==
PROVIDERS: ATTEND Physician Assistant
DX: I48.91 Unspecified atrial fibrillation (principal)

== ENCOUNTER → 2025-07-15 | Outpatient (REF) | PROVIDERS: ATTEND Physician Assistant | DX: R06.02 Shortness of breath (principal) ==

== ENCOUNTER → 2025-07-15 | Outpatient (REF) | payer MEDICARE, MEDICAID ==
[2025-07-15 14:10] LABS: PLATELET COUNT, AUTOMATED 174 10^3/uL (150-450)
[2025-07-15 14:33] LABS: CALCIUM LEVEL 8.2 MG/DL (8.3-10.6); CARBON DIOXIDE LEVEL 32.0 MMOL/L (20-31); CHLORIDE LEVEL 92.0 MMOL/L (98-107); CREATININE FOR GFR 1.16 MG/DL (0.70-1.30); GLOMERULAR FILTRATION RATE 62.9 (>35); POTASSIUM SERUM 4.4 MMOL/L (3.5-5.1); SODIUM LEVEL 133.0 MMOL/L (136-145)
[2025-07-15 17:43] LABS: APPEARANCE, URINE HAZY (CLEAR); BACTERIA, URINE AUTO 1+ (NEGATIVE); BILIRUBIN, URINE AUTO NEGATIVE (NEGATIVE); BLOOD, URINE BLOOD 2+ (NEGATIVE); GLUCOSE, URINE (UA) AUTO NEGATIVE (NEGATIVE); KETONE, URINE AUTO NEGATIVE (NEGATIVE); LEUKOCYTE ESTERASE, URINE AUTO 2+ (NEGATIVE); NITRITE, URINE AUTO NEGATIVE (NEGATIVE); PROTEIN, URINE AUTO 2+ mg/dL (NEGATIVE); RBC, URINE AUTO TNTC /HPF (0-3); SPECIFIC GRAVITY URINE AUTO 1.008 (1.002-1.035); SQUAMOUS EPITHELIAL CELL UR AU 0 /HPF (0-6); UROBILINOGEN, URINE AUTO 0.2 mg/dL (0.0-2.0); WBC, URINE AUTO 148 /HPF (0-3); YEAST LIKE CELL URINE AUTO SMALL
== END ==
PROVIDERS: ATTEND Physician Assistant
DX: R31.0 Gross hematuria (principal); R05.9 Cough, unspecified; R06.02 Shortness of breath

== ENCOUNTER → 2025-07-18 | Outpatient (REF) | PROVIDERS: ATTEND Physician Assistant | DX: D64.9 Anemia, unspecified (principal) ==

== ENCOUNTER → 2025-07-20 | Outpatient (REF) | payer OTHER, MEDICARE, MEDICAID ==
[2025-07-20 11:00] LABS: PLATELET COUNT, AUTOMATED 143 10^3/uL (150-450)
[2025-07-20 11:21] LABS: CALCIUM LEVEL 7.8 MG/DL (8.3-10.6); CARBON DIOXIDE LEVEL 29.0 MMOL/L (20-31); CHLORIDE LEVEL 96.0 MMOL/L (98-107); CREATININE FOR GFR 1.47 MG/DL (0.70-1.30); GLOMERULAR FILTRATION RATE 47.3 (>35); IRON (FE) 70.0 UG/DL (65-175); PERCENT SATURATION 23.1 % (19.7-50.0); POTASSIUM SERUM 4.8 MMOL/L (3.5-5.1); SODIUM LEVEL 133.0 MMOL/L (136-145)
[2025-07-20 12:00] LABS: ESTIMATED AVERAGE GLUCOSE 151.0 MG/DL (60-110)
== END ==
PROVIDERS: ATTEND Internal Medicine
DX: I50.9 Heart failure, unspecified (principal); Z79.899 Other long term (current) drug therapy

== ENCOUNTER → 2025-07-25 | Outpatient (REF) | payer MEDICARE, MEDICAID ==
[2025-07-25 11:21] LABS: PLATELET COUNT, AUTOMATED 142 10^3/uL (150-450)
[2025-07-25 12:14] LABS: CALCIUM LEVEL 8.3 MG/DL (8.3-10.6); CARBON DIOXIDE LEVEL 27.0 MMOL/L (20-31); CHLORIDE LEVEL 98.0 MMOL/L (98-107); CREATININE FOR GFR 1.0 MG/DL (0.70-1.30); GLOMERULAR FILTRATION RATE 75.1 (>35); POTASSIUM SERUM 4.2 MMOL/L (3.5-5.1); SODIUM LEVEL 136.0 MMOL/L (136-145)
== END ==
PROVIDERS: ATTEND Physician Assistant
DX: I48.91 Unspecified atrial fibrillation (principal)

== ENCOUNTER → 2025-08-25 | Outpatient (REF) | payer MEDICARE, MEDICAID | PROVIDERS: ATTEND Internal Medicine | DX: R05.9 Cough, unspecified (principal) ==

== ENCOUNTER → 2025-08-25 | Outpatient (REF) | payer MEDICARE, MEDICAID | PROVIDERS: ATTEND Physician Assistant | DX: R05.9 Cough, unspecified (principal) ==

== ENCOUNTER → 2025-08-29 | Outpatient (REF) | payer MEDICARE, MEDICAID ==
[2025-08-29 12:28] LABS: PLATELET COUNT, AUTOMATED 169 10^3/uL (150-450)
[2025-08-29 12:51] LABS: CALCIUM LEVEL 7.6 MG/DL (8.3-10.6); CARBON DIOXIDE LEVEL 28.0 MMOL/L (20-31); CHLORIDE LEVEL 100.0 MMOL/L (98-107); CREATININE FOR GFR 1.16 MG/DL (0.70-1.30); GLOMERULAR FILTRATION RATE 62.9 (>35); POTASSIUM SERUM 4.0 MMOL/L (3.5-5.1); SODIUM LEVEL 136.0 MMOL/L (136-145)
[2025-08-30 12:50] LABS: IRON (FE) 19.0 UG/DL (65-175); PERCENT SATURATION 6.5 % (19.7-50.0)
== END ==
PROVIDERS: ATTEND Physician Assistant
DX: I50.9 Heart failure, unspecified (principal)

== ENCOUNTER → 2025-08-30 | Outpatient (REF) | payer MEDICARE, MEDICAID | PROVIDERS: ATTEND Physician Assistant | DX: D64.9 Anemia, unspecified (principal) ==

== ENCOUNTER 2025-08-31 13:06 | Outpatient (CLI) | payer MEDICARE, MEDICAID ==
[~2025-08-31] VITALS: Ht 177.8 cm; Wt 104.5 kg
[2025-08-31 13:39] VITALS: BP 128/60; TEMP 100.1; O2SAT 100
[2025-08-31] MEDS: diphenhydrAMINE 50 MG/ML VIAL IM ONE (15:09)
[2025-08-31] MEDS: ACETAMINOPHEN 500 MG TAB PO ONE (15:10)
[2025-08-31 16:00] VITALS: BP 118/89; TEMP 97.8; O2SAT 100
[2025-08-31 16:22] VITALS: BP 112/56; TEMP 98.7; O2SAT 100
[2025-08-31 17:07] VITALS: BP 116/60; TEMP 98.4; O2SAT 99
[2025-08-31 17:55] VITALS: BP 115/56; TEMP 98.1; O2SAT 100
[2025-08-31 18:10] LABS: PLATELET COUNT, AUTOMATED 159 10^3/uL (150-450)
[2025-08-31 18:36] LABS: CALCIUM LEVEL 7.6 MG/DL (8.3-10.6); CARBON DIOXIDE LEVEL 29.0 MMOL/L (20-31); CHLORIDE LEVEL 101.0 MMOL/L (98-107); CREATININE FOR GFR 1.24 MG/DL (0.70-1.30); GLOMERULAR FILTRATION RATE 58.1 (>35); POTASSIUM SERUM 4.6 MMOL/L (3.5-5.1); SODIUM LEVEL 137.0 MMOL/L (136-145)
== END 2025-08-31 21:03 ==
LOC: M OPCLI5PR 13:06 → M MS5PR 13:10 → M OPCLI5PR 21:03
PROVIDERS: ATTEND Physician Assistant
DX: D64.9 Anemia, unspecified (principal); Z88.5 Allergy status to narcotic agent
CPT/HCPCS: 36415; 36430; 80048; 85027; 86920; 96372; J1200; P9016

== ENCOUNTER → 2025-09-02 | Outpatient (REF) | payer MEDICARE, MEDICAID ==
[2025-09-02 12:37] LABS: PLATELET COUNT, AUTOMATED 166 10^3/uL (150-450)
[2025-09-02 13:10] LABS: CALCIUM LEVEL 8.5 MG/DL (8.3-10.6); CARBON DIOXIDE LEVEL 32.0 MMOL/L (20-31); CHLORIDE LEVEL 100.0 MMOL/L (98-107); CREATININE FOR GFR 1.24 MG/DL (0.70-1.30); GLOMERULAR FILTRATION RATE 58.1 (>35); POTASSIUM SERUM 4.4 MMOL/L (3.5-5.1); SODIUM LEVEL 138.0 MMOL/L (136-145)
== END ==
PROVIDERS: ATTEND Physician Assistant
DX: D64.9 Anemia, unspecified (principal)

== ENCOUNTER → 2025-09-05 | Outpatient (REF) | payer MEDICARE, MEDICAID | PROVIDERS: ATTEND Physician Assistant | DX: I50.9 Heart failure, unspecified (principal); J18.9 Pneumonia, unspecified organism ==

== ENCOUNTER → 2025-09-05 | Outpatient (REF) | payer MEDICARE, MEDICAID ==
[2025-09-05 13:01] LABS: PLATELET COUNT, AUTOMATED 144 10^3/uL (150-450)
[2025-09-05 13:38] LABS: CALCIUM LEVEL 8.3 MG/DL (8.3-10.6); CARBON DIOXIDE LEVEL 30.0 MMOL/L (20-31); CHLORIDE LEVEL 99.0 MMOL/L (98-107); CREATININE FOR GFR 1.11 MG/DL (0.70-1.30); GLOMERULAR FILTRATION RATE 66.3 (>35); POTASSIUM SERUM 4.2 MMOL/L (3.5-5.1); SODIUM LEVEL 137.0 MMOL/L (136-145)
== END ==
PROVIDERS: ATTEND Physician Assistant
DX: I50.9 Heart failure, unspecified (principal)

== ENCOUNTER → 2025-09-07 | Outpatient (REF) | payer MEDICARE, MEDICAID ==
[2025-09-07 10:20] LABS: PLATELET COUNT, AUTOMATED 152 10^3/uL (150-450)
[2025-09-07 10:50] LABS: CALCIUM LEVEL 8.7 MG/DL (8.3-10.6); CARBON DIOXIDE LEVEL 30.0 MMOL/L (20-31); CHLORIDE LEVEL 103.0 MMOL/L (98-107); CREATININE FOR GFR 1.42 MG/DL (0.70-1.30); GLOMERULAR FILTRATION RATE 49.0 (>35); POTASSIUM SERUM 4.7 MMOL/L (3.5-5.1); SODIUM LEVEL 140.0 MMOL/L (136-145)
== END ==
PROVIDERS: ATTEND Physician Assistant
DX: I50.9 Heart failure, unspecified (principal); D64.9 Anemia, unspecified